=== PATIENT | female | born 1940 | race Caucasian/White ===

== ENCOUNTER 2020-05-10 14:05 | Outpatient (CLI) | payer MEDICARE, OTHER, SELFPAY ==
--- NOTE | 2020-05-17 11:44 | WPDPFTINT ---
PFT Interpretation PFT Interpretation: DOS: 05/10/2020 REQUESTING: Lolita Pretty NP REASON FOR TESTING: asthma PULMONARY FUNCTION TESTS Results are reliable and reproducible. Spirometry: FEV1 103%, FVC 89%, both normal. FEV1% is normal. GMY63-30% is mildly decreased 69%. No change with bronchodilator. Lung volumes: TLC 145% consistent with moderate hyperinflation. RV is 194%, severe air trapping. The slow vital capacity is significantly higher than the forced vital capacity, 113% compared to 89%. This demonstrates dynamic airflow obstruction. Increased airway resistance. Diffusion: DLCO 51% moderately decreased. Flow volume loop: scooping of the expiratory limb IMPRESSION: Normal FEV1, decreased small airways flow consistent with asthma. Moderate hyperinflation and severe air trapping are consistent with an obstructive process. Moderate diffusion impairment. This pattern may be seen in asthma. Typically, asthmatics would be expected to have a good response to bronchodilator. Lack of response to bronchodilator should not preclude use if clinically indicated. Keshia Alonzo MD
--- NOTE | 2020-05-17 11:54 | WPDSIXMINUTE ---
Six Minute Walk Six Minute Walk: DOS: 05/10/2020 REQUESTING: Lolita Pretty NP REASON FOR TESTING: asthma SIX MINUTE WALK This test was conducted per ATS guidelines. Initial saturation 97%. Pulse 76. The patient walked for 6 minutes, and stopped for shortness of breath twice, each time resting 15-20 seconds. Patient continued the walk until completion. She completed 800 feet, 244 meters. Saturation varied between 92% and 96% while walking. Pulse maximum was 103 during recovery. Final saturation was 94%. IMPRESSION: This patient does not require supplemental oxygen with exertion. She rested during the walk for 30-40 seconds, and was able to complete a distance of 800 ft/ 244 meters. Normal walk distances have not been established for this age. This appears to be an adequate distance for her age.
== END 2020-05-10 14:06 | disposition home or self-care (01) ==
PROVIDERS: PCP Family Medicine; Visit Provider Nurse Practitioner
DX: J45.909 Unspecified asthma, uncomplicated (principal)
CPT/HCPCS: 94060; 94726; 94729

== ENCOUNTER → 2022-06-03 10:50 | Outpatient (CLI) | payer MEDICARE, SELFPAY ==
--- NOTE | ~2022-06-03 | MR_ITS ---
EXAMINATION: MR lumbar spine wo con DATE: 06/03/2022 11:27 INDICATION: Lumbar intervertebral disc degeneration presenting with low back pain and right leg pain TECHNIQUE: Magnetic resonance imaging (MRI) of the lumbar spine was performed without intravenous con trast. Sequences included sagittal T2-weighted FSE, sagittal T2-weighted FS FSE, sagittal T1-weighted FSE, and axial T2-weighted FSE. COMPARISON: CT abdomen and pelvis dated 09/17/2016 FINDINGS: 15 degrees lumbar levoscoliosis. 4 mm retrolisthesis L1 on L2, 203 mm retrolisthesis L2 on L3, 2 mm a nterolisthesis L4 on L5 and 2 mm retrolisthesis L5 on S1. Chronic L1 compression fracture with 20% an terior and central vertebral body height loss. Heterogeneous red and yellow marrow signal. No acute f racture or pathologic marrow replacing process. Moderate to severe disc height loss with vacuum pheno layne at L4-L5. There are to severe left side predominant disc height loss at L1-L2. Mild disc height loss at T12-L1, L2-L3, L3-L4 and L4-L5. There are annular fissures from T11-T12 through L5-S1. The co nus medullaris terminates at L1-L2. There is normal signal in the caudal spinal cord. Paravertebral s oft tissues are unremarkable. The following disc levels are specifically discussed: T12-L1: Large diffuse disc bulge. There is mild right and mild to moderate left facet joint osteoarth ritis. There is mild bilateral neural foraminal stenosis. There is mild central canal stenosis. L1-L2: Large diffuse disc bulge. There is mild bilateral facet joint osteoarthritis. There is mild ri ght and moderate left neural foraminal stenosis. There is mild central canal stenosis. L2-L3: Large diffuse disc bulge with large disc extrusion extending into the right neural foramen. Th ere is mild hypertrophy of the ligamentum flavum. There is mild bilateral facet joint osteoarthritis. There is severe right and mild left neural foraminal stenosis. There is moderate central canal steno sis. L3-L4: Moderate diffuse disc bulge. There is prominent hypertrophy of the ligamentum flavum. There i s moderate bilateral facet joint osteoarthritis. There is moderate bilateral, right greater than left neural foraminal stenosis. There is mild central canal stenosis. L4-L5: Moderate diffuse disc bulge with at the moderate-sized left paracentral to foraminal zone disc extrusion extending cephalad from the level of the disc space. There is severe bilateral facet joint osteoarthritis. There is moderate left and severe right neural foraminal stenosis. There is mild brad tral canal stenosis. L5-S1: Disc is mildly bulging. There is moderate right and moderate left facet joint osteoarthritis. There is mild bilateral, left greater than right neural foraminal stenosis. There is minimal central canal stenosis. IMPRESSION: 1. 15 degrees lumbar levoscoliosis with moderate to severe spondylosis. This most notable for disc ex trusions resulting in severe neural foraminal stenosis on the right at L2-L3 and L4-L5. Reviewed, dictated and finalized at location A. IMPRESSION: 1. 15 degrees lumbar levoscoliosis with moderate to severe spondylosis. This mo st notable for disc extrusions resulting in severe neural foraminal stenosis on the right at L2-L3 and L4-L5.
== END ==
PROVIDERS: PCP Family Medicine; Visit Provider Family Medicine
DX: M51.36 Other intervertebral disc degeneration, lumbar region (principal); M47.896 Other spondylosis, lumbar region
CPT/HCPCS: 72148

== ENCOUNTER → 2022-06-25 13:09 | Outpatient (CLI) | payer MEDICARE, SELFPAY ==
--- NOTE | ~2022-06-25 | XR_ITS ---
XR lumbar spine min 4V DATE: 06/25/2022 13:37 INDICATION: Back pain TECHNIQUE: AP, lateral, coned lateral lumbosacral and bilateral oblique views COMPARISON: None FINDINGS: There is diffuse osteopenia. There is mild levoscoliosis of the lumbar spine. There is moderate anterior wedge compression fracture deformity of L1, likely chronic. There is moderately severe degenerative disc disease at L1-2, moderate degenerative disease at L2-3, L3-4 and severe degenerative disc disease and grade 1 anterolisthesis at L4-5. There is prominent deg enerative change at the apophyseal joints particularly at L4-5 and L5-S1. No spondylolysis is noted. The lumbar pedicles are intact. The sacroiliac joints are intact. There is prominent calcification of the abdominal aorta and iliac arteries; no evidence of abdominal aortic aneurysm IMPRESSION: Osteopenia Mild levoscoliosis Chronic moderate anterior wedge compression fracture deformity at L1 Multilevel degenerative disc disease, most severe at L4-5 Degenerative changes apophyseal joints with associated grade 1 anterolisthesis at L4-5 Reviewed, dictated and finalized at location A. ANICAL SYSTEMS DESIGN ENGINEER
--- NOTE | ~2022-06-25 | XR_ITS ---
XR hip RT min 2V DATE: 06/25/2022 13:37 INDICATION: Right hip pain TECHNIQUE: AP and lateral views COMPARISON: None FINDINGS: No fracture or dislocation, avascular necrosis or bone destruction of the right hip. Right hip joint space appears well preserved. IMPRESSION: No significant abnormality of right hip Reviewed, dictated and finalized at location A. ED HEALTH PROFESSIONAL
== END ==
PROVIDERS: PCP Family Medicine; Visit Provider Neurological Surgery
DX: M51.36 Other intervertebral disc degeneration, lumbar region (principal); M85.88 Other specified disorders of bone density and structure, other site
CPT/HCPCS: 72110; 73502

== ENCOUNTER → 2022-07-26 10:46 | Outpatient (CLI) | payer MEDICARE, SELFPAY ==
--- NOTE | ~2022-07-26 | XR_ITS ---
EXAMINATION: XR lumbar spine 2-3V DATE: 07/26/2022 11:03 INDICATION: Low back pain TECHNIQUE: Lateral views of the lumbar spine are obtained in flexion and extension. COMPARISON: 06/25/2022 FINDINGS: There are 5 mm of anterolisthesis of L4 on L5. No laxity is present flexion or extension. V ertebral body alignment is otherwise normal. Again noted is a compression fracture of L1. There is se nilam loss of intervertebral disc space height at L4-5 and mild to moderate loss of disc space height throughout the remainder of the lumbar spine. Calcified atherosclerosis is noted. IMPRESSION: 1. Severe lumbar spondylosis without acute findings or significant interval change. 2. L1 compression fracture change. Reviewed, dictated and finalized at location A. NESS DEVELOPMENT ASSISTANT IMPRESSION: 1. Severe lumbar spondylosis without acute findings or significant interval jv nge. 2. L1 compression fracture change.
== END ==
PROVIDERS: PCP Family Medicine; Visit Provider Neurological Surgery
DX: M47.896 Other spondylosis, lumbar region (principal)
CPT/HCPCS: 72100

== ENCOUNTER → 2022-11-15 08:26 | Outpatient (CLI) | payer MEDICARE, SELFPAY ==
--- NOTE | ~2022-11-15 | XR_ITS ---
EXAMINATION: XR lumbar spine 2-3V DATE: 11/15/2022 09:05 INDICATION: Arthrodesis status assessment TECHNIQUE: Anteroposterior and lateral views of the lumbar spine, and cone-down lateral view of the l umbosacral junction were obtained. COMPARISON: 07/26/2022 FINDINGS: There is a stable L1 compression fracture. The remaining lumbar vertebral body heights are maintained. There are changes of interval posterior fusion and laminectomy from L2 through L5. Fusion hardware appears intact. There are 5 mm of stable anterolisthesis of L4 on L5. No acute fracture is identified. There is calcified atherosclerosis of the aorta. There is severe loss of intervertebral d isc space height at L4-5. Mild to moderate loss of disc space height is seen throughout the remainder of the lumbar spine. IMPRESSION: 1. Changes of interval posterior fusion and laminectomy from L2 through L5 with intact appearing fusi on hardware. 2. Severe lumbar spondylosis. 3. Stable L1 compression fracture. Reviewed, dictated and finalized at location B. IMPRESSION: 1. Changes of interval posterior fusion and laminectomy from L2 through L5 with intact appearing fusion hardware. 2. Severe lumbar spondylosis. 3. Stable L1 compression fracture.
== END ==
PROVIDERS: PCP Family Medicine; Visit Provider Neurological Surgery
DX: M47.896 Other spondylosis, lumbar region (principal); S32.010D Wedge compression fracture of first lumbar vertebra, subsequent encounter for fracture with routine healing; X58.XXXD Exposure to other specified factors, subsequent encounter; Z98.1 Arthrodesis status
CPT/HCPCS: 72100

== ENCOUNTER 2022-12-18 09:15 | Outpatient (RCR) | payer MEDICARE, SELFPAY ==
--- NOTE | 2022-11-20 15:41 | PTOPEVAL1 ---
Assessment and note entered by Sean Newton, PT Evaluation Information Assessment Status Evaluation Diagnosis S/P L2 to L5 fusion Subjective Information Patient and daughter present during evaluation stating the patient overdid it over the weekend going grocery shopping, pulling weeds, vacuuming, and doing laundry. Reports still feels very deconditioned and that she wants to get back to doing everything around her house. No radiating symptoms down the leg. Reported Pain Level Pain Score 3: Self Report Assessment PT Clinical Summary Oumou is an 82 year old female coming into the clinic with a diagnosis of L2-L5 spinal fusion. She reports issues performing most electrolysist or just walking on her driveway. Spent a long time of the evaluation talking to patient and daughter about specific household tasks and which ones to start with and what ones to ease into. Patient's prognosis will be slowed secondary to patient's reported cardio-respiratory deficits. Physical therapy will mainly work on endurance, balance, and education with strengthening to help improve functional mobility and ADL's. Plan of Care Interventions Electrical Stimulation,Gait Training,Hot Pack/Cold Pack,Manual Therapy,Neuro Re-education,Patient/ Caregiver Education,Therapeutic Activities, Therapeutic Exercise,Ultrasound Other Interventions cupping, taping, IASTM PT Services Indicated Yes Treatment Frequency and 2x/wk for 4 weeks Duration These treatments will address the objective and functional deficits as defined above. The patient will be advanced safely and appropriately in order for the patient to progress towards his/her prior level of function. Additional exercises will be introduced and as well as a comprehensive home exercise program upon discharge, if needed, ?to ensure carryover of functional gains achieved in the clinic. This treatment plan has been reviewed and agreement upon by the patient.
--- NOTE | 2022-12-18 09:50 | PTOPDC ---
Assessment and note entered by Sean Newton, PT Evaluation Information Assessment Status Discharge Diagnosis S/P L2-L5 fusion Subjective Information Patient reports the back still hurts, but main issue is her breathing unable to do much secondary to her breathing including not being able to go to congregation or shopping. Patient has an appointment with her fleet maintenance foreman tomorrow to do tests along with going to her primary for blood draws to check for anemia. Reported Pain Level Pain Score 5: Self Report Assessment PT Clinical Summary Oumou is an 82 year old female coming into the clinic with a diagnosis of L2/L5 fusion. Patient was evaluated on 11/20/22 and attended 9 sessions. She was able to meet 2 of her functional goals, but did not meet pain goals. Main concern of therapist is that her shortness of breath has been going on for over 2 weeks now and is not improving. It is limiting participation with physical therapy. Physical therapist is recommending further evaluation by fleet maintenance foreman and fine unhairer which she has both already scheduled and possible cardiopulmonary rehab to work on the endurance. IF still having issues after that will re-evaluate the patient with new order. Plan of Care PT Services Indicated No
== END 2022-12-18 10:42 | disposition home or self-care (01) ==
LOC: ANHPT 09:15
PROVIDERS: PCP Family Medicine; Visit Provider Neurological Surgery
DX: Z98.1 Arthrodesis status (principal)
CPT/HCPCS: 97110; 97112; 97161; 97530

== ENCOUNTER 2022-12-19 10:29 | Outpatient (CLI) | payer MEDICARE, SELFPAY ==
--- NOTE | ~2022-12-19 | CT_ITS ---
CT Scan of the Chest without Contrast: Clinical Indication: Respiratory crackles Technique: Contiguous sections were acquired throughout the chest without intravenous contrast. Dose reduction technique was used on this scan by utilizing automated exposure control and iterative recon struction technique. The dose-length product (DLP) was 247.47 mGy-cm. Findings: There is no evidence of any significant mediastinal, hilar or axillary lymphadenopathy. Atherosclerot ic calcifications of the aorta are noted. There is no evidence of pleural or pericardial effusion. There is minimal bibasilar subpleural reticulation versus minimal hypoventilatory/atelectatic change. Images through the upper abdomen reveal no abnormalities. Impression: Minimal bibasilar subpleural reticulation versus minimal hypoventilatory/atelectatic change. Reviewed, dictated and finalized at [facility]. Impression: Minimal bibasilar subpleural reticulation versus minimal hypoventilatory/atelec tatic change.
[2022-12-19 10:30] VITALS: PULSE 78; O2SAT 98
[2022-12-19 10:35] VITALS: PULSE 93; O2SAT 99
[2022-12-19 10:45] VITALS: PULSE 79; O2SAT 98
--- NOTE | 2022-12-19 11:30 | HOMEO2EVAL ---
Evaluation was performed at [facility] Home Oxygen Evaluation RC: Home Oxygen (O2) Evaluation Start: 12/19/22 11:27 Freq: Status: Active Protocol: RPE Activity Type Activity Date Activity User E-sign Co-sign Detail Recorded Client Recorded Date Recorded By Document 12/19/22 10:30 DJO [email or web address] 12/19/22 11:29 DJO Document 12/19/22 10:35 [email or web address] [email or web address] 12/19/22 11:29 DJO Document 12/19/22 10:45 [email or web address] [email or web address] 12/19/22 11:29 DJO 12/19/22 12/19/22 12/19/22 10:30 10:35 10:45 Home O2 Evaluation [Oxygen] -Test Phase Resting Exercise Resting -Oxygen Delivery Room Air Room Air [Pulse Oximetry] -Pulse Oximetry (90-100 %) 98 99 98 [Pulse Rate] -Pulse Rate (60-100 beats/min) 78 93 79 [Evaluation] -Activity Tolerance Fair [Comments] -Home Oxygen Evaluation Comments PT ORDERED FOR A 6 MINUTE WALK . PT STATES SHE IS UNABLE TO WALK FOR 6 MINUTES DUE TO BACK PAIN. HOME O2 EVAL DONE INSTEAD. [Charges] -Treatment Charges O2 Evaluation - Outpatient
--- NOTE | 2022-12-19 16:29 | WPDPFTINT ---
PFT Procedure Performed PFT Procedure Performed Spirometry with Pre/Post Bronchodilator Plethysmography (Lung Vol) Diffusing Cap (DLCO) Flow Vol Loop PFT Interpretation This is a pulmonary function test with pre and post-bronchodilator spirometry, plethysmography and diffusing capacity. The test was performed and results interpreted in accordance with the 2019 and 2005 ATS/ERS Task Force guidelines respectively using the Global Lung Function Initiative-2012 reference equations. Patient demonstrated good effort and cooperation. Reproducibility criteria were met. The quality of the pre bronchodilator spirometry maneuver was Grade A and post bronchodilator spirometry maneuver was Grade A. Findings: Spirometry: The contour the inspiratory and expiratory flow tracing are normal. The pre bronchodilator FVC is 2.13 L, 100% predicted. The pre bronchodilator FEV1 is 1.51 L, 93% predicted. The pre bronchodilator FEV1: FVC ratio is 71%. The post bronchodilator FVC is 1.82 L, representing a 14% decrease. The post bronchodilator FEV1 is 1.31 L, representing a 13% decrease. The post bronchodilator FEV1: FVC ratio 72%. Plethysmography: The total lung capacity is 5.42 L, 122% predicted. The functional residual capacity is 3.92 L, 154% predicted. The residual volume is 3.27 L, 147% predicted. Diffusing capacity: The diffusing capacity unadjusted for hemoglobin and carboxyhemoglobin is 12.6, 72% predicted. The diffusing capacity adjusted for alveolar volume is 4.04, 94% predicted. Impression: The spirometry is normal without evidence of an obstructive abnormality. There is no significant improvement after inhaling a single dose of albuterol. The total lung capacity is normal with an increased functional residual capacity and residual volume without and obstructive ventilatory abnormality. This is a abnormal but nonspecific lung volume pattern. The diffusing capacity is normal. There are no prior studies for comparison.
== END 2022-12-19 10:30 | disposition home or self-care (01) ==
LOC: ANHPFT 10:30
PROVIDERS: PCP Family Medicine; Visit Provider Nurse Practitioner
DX: J45.909 Unspecified asthma, uncomplicated (principal); R91.8 Other nonspecific abnormal finding of lung field
CPT/HCPCS: 71250; 94060; 94618; 94726; 94729

== ENCOUNTER → 2023-01-08 09:37 | Outpatient (CLI) | payer MEDICARE, SELFPAY ==
--- NOTE | ~2023-01-08 | XR_ITS ---
Lumbosacral Spine: AP and lateral views Clinical History: Arthrodesis COMPARISON: 11/15/2022 Findings: Posterior fusion hardware from L2 through L5 is again present, with bilateral rods and ballard spedicular screws present. Advanced degenerative disc narrowing at L4-L5 is unchanged. Moderate degen erative disc narrowing at L1-L2 is present. Stable chronic compression deformity of L1. Stable grade 1 anterolisthesis of L4 over L5. The sacroiliac joints are normally outlined. Impression: No significant interval change. Stable posterior fusion from L2 through L5. Stable chronic compression of L1. Stable grade I anterolisthesis of L4 over L5. Reviewed, dictated and finalized at location . Impression: No significant interval change. Stable posterior fusion from L2 through L5. Stable chronic compression of L1. Stable grade I anterolisthesis of L4 over L5.
== END ==
PROVIDERS: PCP Family Medicine; Visit Provider Neurological Surgery
DX: Z98.1 Arthrodesis status (principal)
CPT/HCPCS: 72100

== ENCOUNTER → 2023-04-09 09:13 | Outpatient (CLI) | payer MEDICARE, SELFPAY ==
--- NOTE | ~2023-04-09 | XR_ITS ---
XR lumbar spine 2-3V DATE: 04/09/2023 09:43 INDICATION: Arthrodesis status TECHNIQUE: AP, lateral, coned lateral lumbosacral views COMPARISON: 01/08/2023 lumbar spine FINDINGS: Status post lumbar laminectomy and posterior spinal fusion at L2-5 by means of pedicle scre ws and rods. There is mild lumbar levoscoliosis. There is chronic moderate anterior wedge compression fracture at L1, stable since 01/08/2023. There is multi-level degenerative disc disease throughout the lumbar spine, most severe at L1-2, L4-5 and L5-S1. Stable grade 1 anterolisthesis at L4-5. There is extensive abdominal aortic and bilateral iliac arterial calcification. IMPRESSION: Status post posterior L2-L5 surgical fusion Chronic L1 compression fracture Multi-level degenerative disc disease Stable grade 1 anterolisthesis at L4-5. Little change since 01/08/2023 Reviewed, dictated and finalized at location B.
== END ==
PROVIDERS: PCP Neurological Surgery; Visit Provider Neurological Surgery
DX: Z98.1 Arthrodesis status (principal); M51.36 Other intervertebral disc degeneration, lumbar region; S32.010A Wedge compression fracture of first lumbar vertebra, initial encounter for closed fracture; X58.XXXA Exposure to other specified factors, initial encounter
CPT/HCPCS: 72100

== ENCOUNTER 2023-05-29 09:00 | Outpatient (RCR) | payer MEDICARE, SELFPAY ==
--- NOTE | 2023-04-28 10:58 | OPREHPOC ---
Outpatient Therapy Plan of Care This is a Multidisciplinary Plan of Care that may contain components documented by all disciplines (PT, OT, and ST.) PT Problem 1 PT Problem #1 Knowledge Deficit PT Goal 1 Goal [place] with HEP Target Visit 4 PT Problem 2 PT Problem #2 Pain PT Goal 1 Goal Patient will report no R hip pain with ambulation greater than 200 feet Target Visit 8 PT Problem 3 PT Problem #3 Impaired Range of Motion PT Goal 1 Goal Patient will demonstrate 45 degrees of hip abduction in nile hips to reduce impingement with squatting activity Target Visit 8 PT Goal 2 Goal Patient will improve nile HS 90/90 mobility to -25 degrees to reduce pelvic pull with bending activity PT Problem 4 PT Problem #4 Impaired Functional Mobil PT Goal 1 Goal Demonstrate squat lift of 5# from floor with proper hip mechanics and reduce spinal flexion
--- NOTE | 2023-04-28 10:58 | PTOPEVAL1 ---
Assessment and note entered by Oli Gardner, PT Evaluation Information Assessment Status Evaluation Diagnosis L2-L5 Spinal fusion, Back pain Onset October 01, 2022 Subjective Information Reports that she is mostly having trouble in the low back. She had an injection on 04/24/23. Since injection she is having a little bit of pain but it is better overall. Majority of pain is in back but she has had intermittent in R leg. She is unable to walk long distances due to COPD. She wants to be able to walk around the grocery store more and be able to get around outside. She has 2 small dogs and needs to be able to care for them. Reported Pain Level Pain Score 5: Self Report Assessment PT Clinical Summary Patient presenting with objective deficits in hip strength and ROM which is likely compounding stress in lumbar musculature. She will benefit from skilled therapy to address these deficits to improve body mechanics and reduce pain with ADLs and gait moving forward. Plan of Care PT Services Indicated Yes Treatment Frequency and 2x/week for 8 weeks Duration These treatments will address the objective and functional deficits as defined above. The patient will be advanced safely and appropriately in order for the patient to progress towards his/her prior level of function. Additional exercises will be introduced and as well as a comprehensive home exercise program upon discharge, if needed, ?to ensure carryover of functional gains achieved in the clinic. This treatment plan has been reviewed and agreement upon by the patient.
--- NOTE | 2023-05-29 09:47 | PTOPDC ---
Assessment and note entered by Oli Gardner, PT Discharge Information Assessment Status Discharge Diagnosis L2-L5 Spinal fusion, Back pain Onset October 01, 2022 Subjective Information Reports that overall she feels she is doing really well. States that she had a follow up with her pulmonary physician and everything checked out well. Feels she is functionally doing everything that she needs to. She is still struggling with kneeling and squatting due to her knee. Reported Pain Level Pain Score 1: Self Report Pain Score 1: Self Report Assessment PT Clinical Summary Patient met majority of goals for therapy at this time. Continues to show reflective weakness in R hip indicated by measures and gait pattern. No concerns for discharge at this time and HEP was updated to include standing exercise. Plan of Care PT Services Indicated No
== END 2023-05-29 13:06 | disposition home or self-care (01) ==
LOC: ANHPT 09:00
PROVIDERS: PCP Family Medicine; Visit Provider Neurological Surgery
DX: M54.50 Low back pain, unspecified (principal); Z98.1 Arthrodesis status
CPT/HCPCS: 97110; 97140; 97161; 97530

== ENCOUNTER 2023-06-07 09:08 | Inpatient (IN) | payer MEDICARE, SELFPAY ==
[2023-06-07] VITALS (43 sets, daily range): BP systolic 96–157; BP diastolic 52–83; PULSE 73–117; RESP 12–30; TEMP 36.3–36.9; O2SAT 95–100; BMI 36.7
--- NOTE | ~2023-06-07 | XR_ITS ---
XR chest 1V portable DATE: 06/07/2023 09:43 INDICATION: Dyspnea TECHNIQUE: Portable AP chest on 05/30/2023 at 0941 hours COMPARISON: 12/19/2022 CT chest FINDINGS: Heart size is within normal range. Is aortic calcification, ectasia and tortuosity. No denae r or mediastinal enlargement is noted. Mild infiltrate or atelectasis at the lung bases. The lungs otherwise appear clear. No pleural effusi on or pulmonary mass congestion or pneumothorax. Osteopenia. IMPRESSION: Mild infiltrate or atelectasis at the lung bases Reviewed, dictated and finalized at location A.
--- NOTE | ~2023-06-07 | CT_ITS ---
EXAMINATION: CTA abdomen pelvis DATE: 06/07/2023 10:17 INDICATION: Hematochezia, diarrhea, abdominal pain TECHNIQUE: Computed tomography (CT) of the abdomen and pelvis was performed with 100 CC Omnipaque 350 intravenous contrast. Automated exposure control and iterative reconstruction technique were employe d. Exam dose: 1013.49 mGy-cm total exam DLP. COMPARISON: September 17, 2016 abdomen September 17, 2016 CT abdomen pelvis FINDINGS: Mild atelectasis or interstitial fibrotic changes at the lung bases. Cardiomegaly. No pericardial or pleural effusion. Descending thoracic aortic aneurysm, measuring up to approximately 3.3 cm diameter. The liver, gallbladder, bile ducts, spleen, pancreas and pancreatic duct appear normal. Normal morphology of the adrenal glands. 1 cm left renal cyst. No urinary tract calculus or hydroureteronephrosis. There is extensive abdominal aortic atherosclerotic calcification but no abdominal aortic aneurysm. N o intraperitoneal or retroperitoneal or pelvic mass lesion or adenopathy or ascites. Status post hysterectomy. The urinary bladder appears unremarkable. No evidence of appendicitis. Mild colonic diverticulosis. There is a long segment of thickening of the wall of the distal transverse colon, splenic flexure and descending colon, with associated pericolic fat stranding and thickening of the adjacent anterior pa rarenal and lateroconal fascia and mild fluid accumulation in the left paracolic gutter. Differential diagnosis includes colitis which may be infectious, inflammatory or ischemic, versus diverticulitis or less likely, neoplasm. Small fat-containing umbilical hernia. Status post posterior surgical fusion at L2-L5. Chronic L1 fracture deformity, not significant change since September 17, 2016. Multilevel degenerative disc disease, most severe at L4-5. Grade 1 anterolisthesis of L3-4 and L4-5. IMPRESSION: Thickening of the wall of the distal transverse colon, splenic flexure of the colon and particularly descending colon, with adjacent fat stranding and thickening of the adjacent anterior pa rarenal and lateroconal fascia and left pericolic fluid, particularly along the descending colon. Con molder infectious, inflammatory or ischemic colitis versus diverticulitis, less likely colon neoplasm Mild colonic diverticulosis No evidence of appendicitis Status post hysterectomy Descending thoracic aortic aneurysm Cardiomegaly Reviewed, dictated and finalized at Location [facility]. Reviewed, dictated and finalized at location A. IMPRESSION: Thickening of the wall of the distal transverse colon, splenic fle xure of the colon and particularly descending colon, with adjacent fat strandin g and thickening of the adjacent anterior pararenal and lateroconal fascia and left pericolic fluid, particularly along the descending colon. Consider infecti ous, inflammatory or ischemic colitis versus diverticulitis, less likely colon neoplasm Mild colonic diverticulosis No evidence of appendicitis Status post hysterectomy Descending thoracic aortic aneurysm Cardiomegaly
--- NOTE | 2023-06-07 09:31 | ECG_ITS ---
Measurements Intervals [place] Rate: 77 P: ID: 0 QRS: -1 QRSD: 84 T: 39 QT: 382 QTc: 435 Interpretive Statements SINUS RHYTHM WITH PREMATURE ATRIAL CONTRACTIONS BORDERLINE ECG NO PREVIOUS ECG AVAILABLE FOR COMPARISON Electronically Signed On 06-07-2023 14:42:11 CDT by Zana Mcmahon M.D.
--- NOTE | 2023-06-07 09:34 | ED.GENADULT ---
HPI - General Adult General Chief complaint: GI Bleed <Courtney Ocasio PA-C - Last Filed: 06/07/23 15:24> Stated complaint: GI bleed <Courtney Ocasio PA-C - Last Filed: 06/07/23 15:24> Time Seen by Provider: 06/07/23 09:18 <Courtney Ocasio PA-C - Last Filed: 06/07/23 15:24> History of Present Illness HPI narrative: 82-year-old female with a history of asthma, diabetes, hypertension presents with her daughter for evaluation of diarrhea and hematochezia since yesterday. Patient lives at home alone and provides the following history. States she has had multiple episodes of diarrhea starting yesterday and towards evening began developing bloody diarrhea. She states she would estimate the amount of blood greater than a quarter of a cup every episode of diarrhea. She believes she had approximately 9 episodes of bloody diarrhea since the onset last night. She is also reporting generalized abdominal cramping in her lower abdomen that wraps around to her back. She states yesterday she had an episode of nausea and diaphoresis, and dizziness upon standing. She reports shortness of breath that is unchanged from her baseline which she attributes to her asthma. She denies chest pain, vomiting, fever, dysuria or hematuria. Her sister has a history of colon cancer. Her last colonoscopy was many years ago which showed polyps. Denies recent surgeries or hospitalizations, antibiotic use, travel. She has never required a blood transfusion. No history of GI bleeds. <Courtney Ocasio PA-C - Last Filed: 06/07/23 15:24> Related Data Home medications: Home Medications Medication Instructions Recorded Confirmed albuterol sulfate 90 mcg/actuation 1 inh inhalation Q4H 06/19/22 07/26/22 aerosol inhaler alprazolam 1 mg tablet (Xanax) 1 mg PO HS 06/19/22 06/07/23 atorvastatin 20 mg tablet 20 mg PO DAILY 06/19/22 06/07/23 dapagliflozin propanediol 10 mg 10 mg PO DAILY 06/19/22 06/07/23 tablet (Farxiga) diclofenac sodium 75 mg 75 mg PO BID 06/19/22 06/07/23 tablet,delayed release duloxetine 30 mg capsule,delayed 30 mg PO DAILY 06/19/22 06/07/23 release duloxetine 60 mg capsule,delayed 60 mg PO DAILY 06/19/22 06/07/23 release fluticasone furoate 100 1 inh inhalation DAILY 06/19/22 06/07/23 mcg-vilanterol 25 mcg/dose inhalation powder (Breo Ellipta) furosemide 20 mg tablet 20 mg PO QAM 06/19/22 06/07/23 levothyroxine 75 mcg capsule 100 mcg PO DAILY 06/19/22 06/07/23 loratadine 10 mg tablet 10 mg PO DAILY 06/19/22 06/07/23 metformin 500 mg tablet 500 mg PO BID 06/19/22 06/07/23 metoprolol succinate 25 mg 12.5 mg PO DAILY 06/19/22 06/07/23 tablet,extended release 24 hr quinapril 5 mg tablet 2.5 mg PO DAILY 06/19/22 07/26/22 sildenafil (pulm.hypertension) 20 20 mg PO TID 06/19/22 06/07/23 mg tablet esomeprazole magnesium 20 mg 20 mg PO DAILY 07/09/22 06/07/23 capsule,delayed release (Nexium) flaxseed oil 5 ml miscellaneous BID 07/09/22 06/07/23 mecobalamin (vitamin B12) 10,000 mcg IM MONTHLY 07/09/22 07/26/22 mcg solution for injection montelukast 10 mg tablet 10 mg PO HS 07/09/22 06/07/23 pregabalin 100 mg capsule (Lyrica) 100 mg PO BID 07/09/22 07/26/22 vitamins A,C,V-qucw-unqiai 4,296 1 cap PO QAM AND QPM 07/09/22 07/26/22 mcg-226 mg-90 mg capsule (PreserVision AREDS) <Courtney Ocasio PA-C - Last Filed: 06/07/23 15:24> Allergies/adverse reactions: Allergies Allergy/AdvReac Type Severity Reaction Status Date / Time venom-wasp Allergy Severe Anaphylactic Verified 07/26/22 10:21 Shock <Courtney Ocasio PA-C - Last Filed: 06/07/23 15:24> Review of Systems Review of Systems: CONSTITUTIONAL: Denies fever, chills EYES: Denies visual changes, redness, or discharge. ENT: Denies rhinorrhea, congestion, sore throat, or otalgia. CARDIOVASCULAR: Denies chest pain, palpitations, or edema. RESPIRATORY: See HPI GASTROINTESTINAL: See HPI GENITOURINARY: Denies dysuria or
[2023-06-07 09:43] LABS: Basophils Percent Auto 0.2 % (0.2-1.2); Eosinophils Absolute Auto 0.2 K/mm3 (0-0.3); Hematocrit 35.8 % (37.0-47.0); Hemoglobin 10.4 g/dL (12.0-15.0); Immature Granulocyte Absolute 0.03 K/mm3 (0.00-0.031); Immature Granulocyte Percent A 0.3 % (0-0.5); Lymphocytes Absolute Auto 1.69 K/mm3 (0.9-3.2); Mean Corpuscular HGB Conc 29.1 g/dl (32-36); Mean Corpuscular Hemoglobin 26.5 pg (26-34); Mean Corpuscular Volume 91.1 fl (80-100); Mean Platelet Volume 9.6 fl (7.4-10.4); Monocytes Absolute Auto 0.7 K/mm3 (0.1-0.6); Monocytes Percent Auto 7.4 % (2.6-8.5); Neutrophils Absolute Auto 6.3 K/mm3 (1.3-6.7); Neutrophils Percent Auto 71.1 % (45.5-73.1); Platelet Count Result 209 k/mm3 (150-375); Red Blood Count 3.93 M/mm3 (4.2-5.4); Red Cell Distribution Width 17.5 % (11.5-14.5); White Blood Count 8.9 K/mm3 (4.5-10.0)
[2023-06-07 09:54] LABS: Alanine Aminotransferase 16 U/L (6-35); Albumin Level 4.1 g/dL (3.5-5.1); Alkaline Phosphatase 76 U/L (38-126); Anion Gap 8 mmol/L (8-16); Aspartate Amino Transferase 21 U/L (14-36); Bilirubin,Total 0.8 mg/dL (0.2-1.3); Blood Urea Nitrogen 15 mg/dL (7-17); Calcium 9.2 mg/dL (8.4-10.2); Carbon Dioxide 25 mmol/L (22-30); Chloride 103 mmol/L (98-107); Estimated CRCL calculation 37 ml/min; Estimated Glomerular Filt Rate 53; Glucose 166 mg/dL (65-110); Lipase 69 U/L (23-300); Magnesium 1.5 mg/dL (1.6-2.3); Potassium 4.3 mmol/L (3.4-5.0); Sodium 136 mmol/L (137-145)
[2023-06-07 09:58] LABS: Prothrombin Time 13.4 Seconds (11.1-14.7)
[2023-06-07 09:59] LABS: Partial Thromboplastin Time 25.4 SECONDS (22.3-36.8)
[2023-06-07 10:06] LABS: Platelet Estimate Adequate (Adequate); Troponin I < 0.012 ng/mL (0.000-0.034)
[2023-06-07 10:07] LABS: Anisocytosis 1+ (NORMAL); Ovalocytes 1+ (NORMAL); Poikilocytosis 1+ (NORMAL); Schistocytes None Seen (NORMAL)
[2023-06-07] MEDS: SODIUM CHLORIDE 0.9% IV 1,000 ML 999 ML IV CONT ×2 (10:24→12:14)
[2023-06-07] MEDS: PANTOPRAZOLE SODIUM IV 40 MG VIAL 80 MG IV PUSH (10:24)
[2023-06-07 10:56] LABS: Magnesium 1.4 mg/dL (1.6-2.3)
[2023-06-07] MEDS: PANTOPRAZOLE SODIUM IV 80 MG in SODIUM CHLORIDE 0.9% IV 500 ML 50 MG IV CONT (11:10)
[2023-06-07 11:26] LABS: Lactic Acid Reflex 1.5 mmol/L (0.7-2.0)
[2023-06-07] MEDS: MAGNESIUM SULF 1 GM/D5W 100 ML 1 GM/100 ML BAG IVPB (11:35)
[2023-06-07 12:10] LABS: Appearance Urine Clear (Clear); Bilirubin Urine Negative (Negative); Blood Urine Negative (Negative); Color Urine Yellow (Yellow); Glucose Urine UA 3+ mg/dL (Negative); Ketones Urine Negative (Negative); Leukocyte Esterase Ur Negative LEU/UL (Negative); Nitrate Urine Negative (Negative); Protein Urine Negative (Negative); Urobilinogen Urine 0.2 mg/dL (<2.0); pH Urine 6.5 (5.0-9.0)
[2023-06-07 12:12] LABS: Add Urine Microscopic? NO
[2023-06-07] MEDS: PIPERACILLN/TAZ 3.375GM/NS50ML 3.375 GM/50 ML BAG IVPB (12:14)
--- NOTE | 2023-06-07 13:06 | PM.IMHP ---
H&P: HPI History of Present Illness Date/Time: 06/07/23 13:05 Chief Complaint: Blood in stool. Narrative: This is a very pleasant 82-year-old female with hypertension, hyperlipidemia, type 2 diabetes mellitus, obstructive sleep apnea on CPAP, and asthma who presented to the emergency department via private vehicle for evaluation of blood in her stool. The patient provides the following history. Yesterday she developed diffuse cramping pain in the lower abdomen followed by of multiple bouts of watery diarrhea. Towards the evening she started to notice bright red blood in her stool and she estimates that she had upwards of 9 to 10 bloody stools since last night. She also endorses nausea, sweats, weakness, dizziness upon standing. She has never had similar symptoms. She denies sick contacts, recent antibiotic use, and recent travel. She has not had a fever to her knowledge. No vomiting. She has a remote history of colon polyps and has had issues with hemorrhoids. No known history of diverticulosis. In the ED: Blood pressure was stable on arrival but she did have an isolated reading of 96/67. She has been in a sinus rhythm. Labs were significant for hemoglobin and hematocrit of 10.4 and 35.8% respectively, magnesium 1.4, lactic acid 1.5. CTA of the abdomen and pelvis showed thickening of the wall of the distal transverse colon, splenic flexure of the colon, and descending colon with adjacent fat stranding compatible with colitis. Mild colonic diverticulosis was also noted. She was given a g magnesium sulfate and was started on Zosyn and she is being admitted in this setting for further treatment and evaluation. Review of Systems Review of Systems: Twelve systems were reviewed and are negative except for as per HPI. [facility] Past Medical History Medical History (Updated 06/07/23 @ 20:28 by Silvia Chery PA-C) Aneurysm of descending thoracic aorta Measuring 3.3 cm as of 06/07/2023. Arthritis Asthma Hypertension Hypothyroidism Migraine Obstructive sleep apnea on CPAP Osteoporosis Type 2 diabetes mellitus Surgical History Surgical History History of cardiac catheterization (12/2019) Patent coronary arteries with normal LV function. History of left knee replacement History of lumbar spinal fusion (09/2022) Per Dr. Owens. History of partial hysterectomy History of right knee joint replacement Family History Family History Father Alcoholism Heart disease Asthma Emphysema lung Sibling Diabetes mellitus Alcoholism Heart disease Cancer Hypertension Cerebrovascular accident Emphysema lung Migraines Son Cancer Hypertension Kidney disease Other Cancer Mother Heart disease Emphysema lung Other Osteoporosis Social History Social History (Updated 06/07/23 @ 20:25 by Silvia Chery PA-C) Social History: Surrogate medical decision maker: Diane Gerard, daughter. Code status: Full code. Smoking status: Never smoker Second hand tobacco smoke exposure: Yes Alcohol intake: former Substance use: never Substance use type: does not use Lack of Transportation: No Lack of Food: Never True Current Housing: I Have Housing Concerned About Future Housing: No Difficulty Paying Gas/Electric Bills: No Difficulty Paying for Meds: No Currently Unemployed: No Education: High School Diploma/GED Difficulty w/ Childcare or Family Care: No Living arrangements: alone Occupation/Education: retired Spiritual care concerns: No Meds Home Medications and Allergies Home Medications Medication Instructions Recorded Confirmed Type alprazolam 1 mg tablet (Xanax) 1 mg PO HS 06/19/22 06/07/23 History atorvastatin 20 mg tablet 20 mg PO DAILY 06/19/22 06/07/23 History dapagliflozin propanediol 10 mg 10 mg PO DAILY 06/19/22 06/07/23 History tablet (Farxiga)
[2023-06-07 13:42] LABS: Hematocrit 33.4 % (37.0-47.0); Hemoglobin 9.2 g/dL (12.0-15.0)
--- NOTE | 2023-06-07 16:40 | ADMGEN ---
This patient, Oumou Villagran, was admitted to 2 Medical Room 259-01. Patient/family oriented to hospital policies and general routines including ID bracelet, bed and alarms, visiting hours, pain management, procedures, bathroom and other care routines, personal items, smoking policy, room service/diet, and visiting hours. Information on how to activate the Rapid Response Team has been discussed. Patient/Family are encouraged to report perceived risks to care and to ask questions if they do not understand what they are told or what they should do.
[2023-06-07] MEDS: PIPERACILLIN/TAZ 2.25G/NS 50ML 2.25 GM/50 ML BAG IVPB ×2 (18:11→23:42)
[2023-06-07] MEDS: SODIUM CHLORIDE 0.9% IV 1,000 ML 125 ML IV CONT (18:12)
[2023-06-07] MEDS: MONTELUKAST SODIUM 10 MG TABLET PO (21:39)
[2023-06-07] MEDS: ALPRAZolam (*CRX) 0.5 MG TABLET 1 MG PO (21:39)
[2023-06-07 22:19] LABS: Glucose Point of Care 162 mg/dl (65-105)
[2023-06-07] MEDS: METOPROLOL SUCCINATE EXT REL 12.5 MG TABCR PO (23:43)
[2023-06-07] MEDS: ATORVASTATIN 20 MG TABLET PO (23:43)
[2023-06-08] VITALS (16 sets, daily range): BP systolic 114–149; BP diastolic 49–76; PULSE 78–106; RESP 16–18; TEMP 36.5–36.9; O2SAT 95–99
[2023-06-08 00:51] LABS: Hematocrit 31.2 % (37.0-47.0); Hemoglobin 8.9 g/dL (12.0-15.0)
--- NOTE | 2023-06-08 02:44 | ECG_ITS ---
Measurements Intervals [place] Rate: 85 P: 58 SC: 178 QRS: 0 QRSD: 85 T: 53 QT: 383 QTc: 458 Interpretive Statements SINUS RHYTHM WITH OCCASIONAL SUPRAVENTRICULAR PREMATURE COMPLEXES BORDERLINE ECG COMPARED TO ECG 06/07/2023 10:25:51 NO SIGNIFICANT CHANGES Electronically Signed On 06-08-2023 13:42:56 CDT by Zana Mcmahon M.D.
[2023-06-08] MEDS: SODIUM CHLORIDE 0.9% IV 1,000 ML 125 ML IV CONT (05:36)
[2023-06-08] MEDS: LEVOTHYROXINE SODIUM 100 MCG TABLET PO (05:37)
[2023-06-08] MEDS: PIPERACILLIN/TAZ 2.25G/NS 50ML 2.25 GM/50 ML BAG IVPB ×3 (05:37→17:30)
[2023-06-08 06:14] LABS: Hematocrit 30.3 % (37.0-47.0); Hemoglobin 8.4 g/dL (12.0-15.0); Mean Corpuscular HGB Conc 27.7 g/dl (32-36); Mean Corpuscular Hemoglobin 26.5 pg (26-34); Mean Corpuscular Volume 95.6 fl (80-100); Mean Platelet Volume 10.5 fl (7.4-10.4); Platelet Count Result 170 k/mm3 (150-375); Red Blood Count 3.17 M/mm3 (4.2-5.4); Red Cell Distribution Width 17.7 % (11.5-14.5); White Blood Count 7.1 K/mm3 (4.5-10.0)
[2023-06-08 06:36] LABS: Anion Gap 8 mmol/L (8-16); Blood Urea Nitrogen 9 mg/dL (7-17); Calcium 8.3 mg/dL (8.4-10.2); Carbon Dioxide 23 mmol/L (22-30); Chloride 108 mmol/L (98-107); Estimated CRCL calculation 37 ml/min; Estimated Glomerular Filt Rate 53; Glucose 122 mg/dL (65-110); Potassium 3.9 mmol/L (3.4-5.0); Sodium 139 mmol/L (137-145)
[2023-06-08 08:09] LABS: Glucose Point of Care 151 mg/dl (65-105)
[2023-06-08] MEDS: FLUTICASONE/SALMETEROL 115-21 MCG INHALER 1 PUFF 2 PUFF INHALATION ×2 (08:30→20:58)
--- NOTE | 2023-06-08 09:27 | WPDGICN ---
Assessment and Plan Assessment and plan (1) Colitis: Code(s): K52.9 - Noninfective gastroenteritis and colitis, unspecified Status: Acute Assessment and Plan: probably ischemic but she is more comfortable now, could be also infectious stool samples, liquid diet and iv antibiotic colonoscopy probably in 4-6 weks after acute episode resolved unless more bleeding (2) GI bleed: Qualifiers: GI bleed type/associated pathology: unspecified gastrointestinal hemorrhage type Qualified Code(s): K92.2 - Gastrointestinal hemorrhage, unspecified Code(s): K92.2 - Gastrointestinal hemorrhage, unspecified Status: Acute Assessment and Plan: from colitis (3) Type 2 diabetes mellitus: Code(s): E11.9 - Type 2 diabetes mellitus without complications Status: Acute (4) Hypertension: Code(s): I10 - Essential (primary) hypertension Status: Acute (5) Acute on chronic anemia: Code(s): D64.9 - Anemia, unspecified Status: Acute GI Consult Note Consult date/time: 06/08/23 09:27 Reason for consult: colitis, blood in stools HPI: Oumou Villagran is a 82 year old female with hypertension, hyperlipidemia, type 2 diabetes mellitus, obstructive sleep apnea on CPAP, and asthma who presented to the emergency department via private vehicle for evaluation of blood in her stool.? Started with lower abdominal cramping then followed by maroon stool with diarrhea, no fever or chills, denies previous episode, no sick contact. Last colonoscopy about 15 years ago. Labs were significant for hemoglobin and hematocrit of 10.4 and 35.8% respectively, magnesium 1.4, lactic acid 1.5. CTA of the abdomen and pelvis showed thickening of the wall of the distal transverse colon, splenic flexure of the colon, and descending colon with adjacent fat stranding compatible with colitis.?She is feeling better now and comfortable, family at beside. Review of Systems Review of Systems: CONSTITUTIONAL: Denies fever, chills EYES: Denies visual changes, redness, or discharge. ENT: Denies rhinorrhea, congestion, sore throat, or otalgia. CARDIOVASCULAR: Denies chest pain, palpitations, or edema. RESPIRATORY: See HPI GASTROINTESTINAL: See HPI GENITOURINARY: Denies dysuria or hematuria. SKIN: Denies rash or itching. MUSCULOSKELETAL: Denies back pain, joint pain, or myalgia. NEUROLOGIC: See HPI PSYCHIATRIC: Denies anxiety or depression. [facility] Past Medical History Medical History (Updated 06/08/23 @ 09:29 by Leonides Topete MD) Acute on chronic anemia Aneurysm of descending thoracic aorta Measuring 3.3 cm as of 06/07/2023. Arthritis Asthma Hypertension Hypothyroidism Migraine Obstructive sleep apnea on CPAP Osteoporosis Type 2 diabetes mellitus Surgical History Surgical History History of cardiac catheterization (12/2019) Patent coronary arteries with normal LV function. History of left knee replacement History of lumbar spinal fusion (09/2022) Per Dr. Owens. History of partial hysterectomy History of right knee joint replacement Family History Family History Father Alcoholism Heart disease Asthma Emphysema lung Sibling Diabetes mellitus Alcoholism Heart disease Cancer Hypertension Cerebrovascular accident Emphysema lung Migraines Son Cancer Hypertension Kidney disease Other Cancer Mother Heart disease Emphysema lung Other Osteoporosis Social History Social History (Updated 06/07/23 @ 20:25 by Silvia Chery PA-C) Social History: Surrogate medical decision maker: Diane Gerard, daughter. Code status: Full code. Smoking status: Never smoker Second hand tobacco smoke exposure: Yes Alcohol intake: former Substance use: never Substance use type: does not use Lack of Transportation: No Lack of Food
[2023-06-08] MEDS: DULoxetine HCL 60 MG CAPSULE.DR PO (09:34)
[2023-06-08] MEDS: OPTI-GEN TAB 1 TABLET PO ×2 (09:34→17:30)
[2023-06-08] MEDS: PANTOPRAZOLE SOD SESQUIHYDRATE 20 MG TAB PO (09:34)
[2023-06-08] MEDS: SILDENAFIL CITRATE 20 MG TABLET PO ×3 (09:35→18:31)
[2023-06-08] MEDS: LORATADINE 10 MG TABLET PO (09:35)
[2023-06-08] MEDS: FUROSEMIDE 20 MG TABLET PO (09:35)
[2023-06-08] MEDS: DULoxetine HCL 30 MG CAPSULE.DR PO (09:35)
[2023-06-08 11:46] LABS: Glucose Point of Care 207 mg/dl (65-105)
[2023-06-08 11:55] LABS: Hematocrit 33.3 % (37.0-47.0); Hemoglobin 9.3 g/dL (12.0-15.0)
[2023-06-08] MEDS: INSULIN ASPART (*BKC) 100 UNITS/ML SUB-Q ×2 (11:55→20:39)
--- NOTE | 2023-06-08 12:54 | PM.IMPN ---
Progress Note: A&P Assessment and Plan (1) Colitis: Code(s): K52.9 - Noninfective gastroenteritis and colitis, unspecified Status: Acute Assessment and Plan: CT scan shows evidence of colitis of the distal transverse colon, splenic flexure, and descending colon. Started on Zosyn for possible infectious colitis. Lactic acid levels well within normal limits. Stool studies have been obtained and are pending Blood cultures no growth to date Dr. Topete has been consulted and his input is appreciated. Monitor electrolytes (2) GI bleed: Qualifiers: GI bleed type/associated pathology: unspecified gastrointestinal hemorrhage type Qualified Code(s): K92.2 - Gastrointestinal hemorrhage, unspecified Code(s): K92.2 - Gastrointestinal hemorrhage, unspecified Status: Acute Assessment and Plan: Hemoglobin and hematocrit will be trended and she will be transfused if indicate. Orthostatics remained negative. GI consulted and are not recommending colonoscopy at this time. Protonix q.12 (3) Aneurysm of descending thoracic aorta: Qualifiers: Presence of rupture: without rupture Qualified Code(s): I71.23 - Aneurysm of the descending thoracic aorta, without rupture Code(s): I71.23 - Aneurysm of the descending thoracic aorta, without rupture Status: Acute Assessment and Plan: A 3.3 cm descending thoracic aortic aneurysm was noted on CT and this should be followed up as an outpatient. (4) Type 2 diabetes mellitus: Code(s): E11.9 - Type 2 diabetes mellitus without complications Status: Acute Assessment and Plan: Insulin Lispro sliding scale, Accu-checks qAc and HS and Hold oral hypoglycemics Initiate hypoglycemic precautions (5) Obstructive sleep apnea on CPAP: Code(s): G47.33 - Obstructive sleep apnea (adult) (pediatric) Status: Acute Assessment and Plan: CPAP provided (6) Hypertension: Code(s): I10 - Essential (primary) hypertension Status: Acute Assessment and Plan: Monitor blood pressures. Patient remains stable (7) Hypothyroidism: Code(s): E03.9 - Hypothyroidism, unspecified Status: Acute Assessment and Plan: Continue levothyroxine TSH 1.03 Subjective Date/time seen: 06/08/23 12:54 Interval history: Patient is stable and states that she continues to have bright red blood per rectum. Patient is having blood whether she has a bowel movement or not. Patient states that when she uses the restroom and wipes there is a lot of blood in the toilet bowl and on the toilet paper. She denies dizziness, lightheadedness, fatigue and shortness of breath. She does have intermittent abdominal pain although it it seems to be very mild. She is still on a clear liquid diet at this time. GI not recommending colonoscopy at this time. Exam Narrative: GENERAL: Comfortable, no acute distress HENMT: moist mucous membranes EYES: EOM intact b/l NECK: no lymphadenopathy RESPIRATORY: clear to auscultation CARDIO: RRR GI: soft, nontender, bowel sounds present SKIN: no rashes EXTREMITIES: no edema, redness or tenderness Objective Data Vital Signs Vital Signs: Vital Signs - 24 hr 06/07/23 13:00 06/07/23 13:01 06/07/23 13:20 Temperature Pulse Rate 80 77 83 Respiratory Rate 22 H 21 H 24 H Blood Pressure 125/52 L Pulse Oximetry 98 98 98 Oxygen Delivery 06/07/23 13:30 06/07/23 13:36 06/07/23 13:45 Temperature Pulse Rate 79 81 80 Respiratory Rate 20 17 19 Blood Pressure 140/56 L Pulse Oximetry 100 100 99 Oxygen Delivery 06/07/23 13:46 06/07/23 14:00 06/07/23 14:01 Temperature Pulse Rate 82 82 83 Respiratory Rate 18 23 H 15 Blood Pressure 137/63 125/83 Pulse Oximetry 99 100 Oxygen Delivery 06/07/23 14:15 06/07/23 14:16 06/07/23 14:30 Temperature Pulse Rate 85 77 78 Respiratory Rate 25 H
[2023-06-08] MEDS: SODIUM CHLORIDE 0.9% IV 1,000 ML 85 ML IV CONT (15:09)
[2023-06-08 16:42] LABS: Glucose Point of Care 85 mg/dl (65-105)
[2023-06-08 18:58] LABS: Hematocrit 31.7 % (37.0-47.0); Hemoglobin 8.7 g/dL (12.0-15.0)
[2023-06-08] MEDS: MONTELUKAST SODIUM 10 MG TABLET PO (20:31)
[2023-06-08] MEDS: ATORVASTATIN 20 MG TABLET PO (20:31)
[2023-06-08] MEDS: ALPRAZolam (*CRX) 0.5 MG TABLET 1 MG PO (20:31)
[2023-06-08] MEDS: METOPROLOL SUCCINATE EXT REL 12.5 MG TABCR PO (20:31)
[2023-06-08] MEDS: PANTOPRAZOLE SODIUM IV 40 MG VIAL IV PUSH (20:32)
[2023-06-08 21:07] LABS: Glucose Point of Care 215 mg/dl (65-105)
[2023-06-09] VITALS (15 sets, daily range): BP systolic 119–143; BP diastolic 53–85; PULSE 74–102; RESP 14–18; TEMP 36.4–36.6; O2SAT 94–99
[2023-06-09 00:48] LABS: Hematocrit 28.7 % (37.0-47.0); Hemoglobin 8.2 g/dL (12.0-15.0)
[2023-06-09] MEDS: PIPERACILLIN/TAZ 2.25G/NS 50ML 2.25 GM/50 ML BAG IVPB ×5 (00:51→23:37)
[2023-06-09] MEDS: SODIUM CHLORIDE 0.9% IV 1,000 ML 85 ML IV CONT ×2 (04:56→17:08)
[2023-06-09] MEDS: LEVOTHYROXINE SODIUM 100 MCG TABLET PO (05:14)
[2023-06-09 05:59] LABS: Hematocrit 29.3 % (37.0-47.0); Hemoglobin 8.2 g/dL (12.0-15.0); Mean Corpuscular Hemoglobin 26.6 pg (26-34); Mean Corpuscular Volume 95.1 fl (80-100); Mean Platelet Volume 10.5 fl (7.4-10.4); Platelet Count Result 173 k/mm3 (150-375); Red Blood Count 3.08 M/mm3 (4.2-5.4); Red Cell Distribution Width 17.8 % (11.5-14.5); White Blood Count 5.4 K/mm3 (4.5-10.0)
[2023-06-09 06:10] LABS: Lactic Acid Reflex 1.3 mmol/L (0.7-2.0)
[2023-06-09 06:12] LABS: Alanine Aminotransferase 11 U/L (6-35); Albumin Level 3.2 g/dL (3.5-5.1); Alkaline Phosphatase 60 U/L (38-126); Anion Gap 8 mmol/L (8-16); Aspartate Amino Transferase 16 U/L (14-36); Bilirubin,Total 0.6 mg/dL (0.2-1.3); Blood Urea Nitrogen 8 mg/dL (7-17); Calcium 8.2 mg/dL (8.4-10.2); Carbon Dioxide 24 mmol/L (22-30); Chloride 109 mmol/L (98-107); Estimated CRCL calculation 34 ml/min; Estimated Glomerular Filt Rate 48; Glucose 129 mg/dL (65-110); Potassium 3.8 mmol/L (3.4-5.0); Sodium 141 mmol/L (137-145)
[2023-06-09 08:31] LABS: Glucose Point of Care 159 mg/dl (65-105)
[2023-06-09] MEDS: FLUTICASONE/SALMETEROL 115-21 MCG INHALER 1 PUFF 2 PUFF INHALATION ×2 (09:05→19:53)
[2023-06-09] MEDS: FUROSEMIDE 20 MG TABLET PO (09:19)
[2023-06-09] MEDS: DULoxetine HCL 30 MG CAPSULE.DR PO (09:20)
[2023-06-09] MEDS: SILDENAFIL CITRATE 20 MG TABLET PO ×3 (09:20→17:08)
[2023-06-09] MEDS: DULoxetine HCL 60 MG CAPSULE.DR PO (09:20)
[2023-06-09] MEDS: LORATADINE 10 MG TABLET PO (09:21)
[2023-06-09] MEDS: PANTOPRAZOLE SODIUM IV 40 MG VIAL IV PUSH ×2 (09:21→20:31)
[2023-06-09] MEDS: OPTI-GEN TAB 1 TABLET PO ×2 (09:23→17:08)
[2023-06-09 12:39] LABS: Glucose Point of Care 162 mg/dl (65-105)
--- NOTE | 2023-06-09 14:00 | WPDGIPROGNO ---
Progress Note: A&P Assessment and Plan (1) Colitis: Code(s): K52.9 - Noninfective gastroenteritis and colitis, unspecified Status: Acute Assessment and Plan: she is clinically much better, no more bleeding lactic acid normal hgb low but stable on antibiotic, ok to advance diet colonoscopy in 4-6 weeks (2) GI bleed: Qualifiers: GI bleed type/associated pathology: unspecified gastrointestinal hemorrhage type Qualified Code(s): K92.2 - Gastrointestinal hemorrhage, unspecified Code(s): K92.2 - Gastrointestinal hemorrhage, unspecified Status: Acute Assessment and Plan: resolved (3) Acute on chronic anemia: Code(s): D64.9 - Anemia, unspecified Status: Acute Assessment and Plan: h/h stable (4) Type 2 diabetes mellitus: Code(s): E11.9 - Type 2 diabetes mellitus without complications Status: Acute (5) Hypertension: Code(s): I10 - Essential (primary) hypertension Status: Acute Subjective Date/time seen: 06/09/23 14:00 Interval history: no rectal bleeding since admission, no pain and doing better tolerated liquid diet and would like to eat more Review of Systems Review of Systems: All systems reviewed & are unremarkable except as noted in HPI and below Exam Const: General: comfortable and no acute distress HENMT: Face/Nose/Sinus: Normal nares present Eyes: General: appearance normal, both eyes and all related structures Neck: Neck: supple Resp: Auscultation: clear to auscultation bilaterally Cardio: Rate: regular rate Rhythm: regular rhythm GI: Inspection: non-distended GI Palp: Yes Soft to palpation, No Tenderness to palpation present (GI) and No Guarding due to palpation present (GI) Auscultation: normal bowel sounds Skin: General skin exam: normal color Neuro: Speech: normal speech Motor exam (neuro): 5/5 motor strength present throughout Extrem: General: normal to inspection Psych: Mental Status: mental status grossly normal Objective Data Vital Signs Vital Signs: Vital Signs - 24 hr 06/08/23 16:03 06/08/23 18:30 06/08/23 20:31 Temperature Pulse Rate 92 105 H Respiratory Rate Blood Pressure 120/60 Pulse Oximetry Oxygen Delivery 06/08/23 21:01 06/08/23 20:00 06/08/23 20:00 Temperature Pulse Rate 78 95 Respiratory Rate Blood Pressure 120/54 L 124/69 Pulse Oximetry 95 Oxygen Delivery Room Air 06/08/23 20:00 06/08/23 20:00 06/08/23 20:00 Temperature 98.5 F Pulse Rate 106 H 78 Respiratory Rate 16 Blood Pressure 132/49 L Pulse Oximetry 96 Oxygen Delivery Room Air 06/08/23 22:40 06/08/23 20:00 06/09/23 00:00 Temperature Pulse Rate 85 90 88 Respiratory Rate Blood Pressure Pulse Oximetry 95 Oxygen Delivery CPAP 06/09/23 04:50 06/09/23 04:00 06/09/23 03:30 Temperature 97.9 F Pulse Rate 77 74 77 Respiratory Rate 14 Blood Pressure 119/54 L Pulse Oximetry 99 94 Oxygen Delivery CPAP 06/09/23 09:05 06/09/23 09:20 06/09/23 08:00 Temperature Pulse Rate 90 Respiratory Rate Blood Pressure Pulse Oximetry 96 Oxygen Delivery Room Air Room Air 06/09/23 12:00 Temperature Pulse Rate 81 Respiratory Rate Blood Pressure Pulse Oximetry Oxygen Delivery Intake/Output Intake/Output: Intake & Output 06/06/23 06/07/23 06/08/23 06/09/23 23:59 23:59 23:59 23:59 Intake Total 3713 4546 1200 Output Total 300 Balance 3413 4546 1200 Meds/Results Medications: Active Medications Generic Name Dose Route Start Last Admin Trade Name Freq PRN Reason Stop Dose Admin Acetaminophen 650 mg 06/07/23 20:35 Acetaminophen 325 Mg Tablet PO Q6H PRN Mild Pain (1-3) or Fever Alprazolam 1 mg 06/07/23 21:00 06/08/23 20:31 Alprazolam (*Crx) 0.5 Mg Tablet PO 1 mg HS ILYA Administration Atorvastatin Calcium 20 mg 06/07/23 21:55 06/08/23 20:31 Atorvastatin 20
--- NOTE | 2023-06-09 14:06 | PM.IMPN ---
Progress Note: A&P Assessment and Plan (1) Colitis: Code(s): K52.9 - Noninfective gastroenteritis and colitis, unspecified Status: Acute Assessment and Plan: CT scan shows evidence of colitis of the distal transverse colon, splenic flexure, and descending colon. Started on Zosyn for possible infectious colitis. Lactic acid levels well within normal limits. Stool studies ordered but pt has not had BM since ED arrival. Blood cultures no growth to date Dr. Topete has been consulted and his input is appreciated. Monitor electrolytes Advance diet as tolerated (2) GI bleed: Qualifiers: GI bleed type/associated pathology: unspecified gastrointestinal hemorrhage type Qualified Code(s): K92.2 - Gastrointestinal hemorrhage, unspecified Code(s): K92.2 - Gastrointestinal hemorrhage, unspecified Status: Acute Assessment and Plan: Hemoglobin and hematocrit will be trended and she will be transfused if indicate. Orthostatics remained negative. GI consulted and are not recommending colonoscopy at this time. Protonix q.12 (3) Aneurysm of descending thoracic aorta: Qualifiers: Presence of rupture: without rupture Qualified Code(s): I71.23 - Aneurysm of the descending thoracic aorta, without rupture Code(s): I71.23 - Aneurysm of the descending thoracic aorta, without rupture Status: Acute Assessment and Plan: A 3.3 cm descending thoracic aortic aneurysm was noted on CT and this should be followed up as an outpatient. (4) Type 2 diabetes mellitus: Code(s): E11.9 - Type 2 diabetes mellitus without complications Status: Acute Assessment and Plan: Insulin Lispro sliding scale, Accu-checks qAc and HS and Hold oral hypoglycemics Initiate hypoglycemic precautions (5) Obstructive sleep apnea on CPAP: Code(s): G47.33 - Obstructive sleep apnea (adult) (pediatric) Status: Acute Assessment and Plan: CPAP provided (6) Hypertension: Code(s): I10 - Essential (primary) hypertension Status: Acute Assessment and Plan: Monitor blood pressures. Patient remains stable (7) Hypothyroidism: Code(s): E03.9 - Hypothyroidism, unspecified Status: Acute Assessment and Plan: Continue levothyroxine TSH 1.03 Subjective Date/time seen: 06/09/23 14:06 Interval history: Patient tolerating her diet well. She has no complaints of abdominal pain. She has no more blood coming out of her rectum. She has not had a bowel movement since arrival to the hospital and has been unable to provide a stool sample. Her hemoglobin hematocrit have remained stable. Plan to advance her diet. Continue IV antibiotics. Exam Narrative: GENERAL: Comfortable, no acute distress HENMT: moist mucous membranes EYES: EOM intact b/l NECK: no lymphadenopathy RESPIRATORY: clear to auscultation CARDIO: RRR GI: soft, nontender, bowel sounds present SKIN: no rashes EXTREMITIES: no edema, redness or tenderness Objective Data Vital Signs Vital Signs: Vital Signs - 24 hr 06/08/23 16:03 06/08/23 18:30 06/08/23 20:31 Temperature Pulse Rate 92 105 H Respiratory Rate Blood Pressure 120/60 Pulse Oximetry Oxygen Delivery 06/08/23 21:01 06/08/23 20:00 06/08/23 20:00 Temperature Pulse Rate 78 95 Respiratory Rate Blood Pressure 120/54 L 124/69 Pulse Oximetry 95 Oxygen Delivery Room Air 06/08/23 20:00 06/08/23 20:00 06/08/23 20:00 Temperature 98.5 F Pulse Rate 106 H 78 Respiratory Rate 16 Blood Pressure 132/49 L Pulse Oximetry 96 Oxygen Delivery Room Air 06/08/23 22:40 06/08/23 20:00 06/09/23 00:00 Temperature Pulse Rate 85 90 88 Respiratory Rate Blood Pressure Pulse Oximetry 95 Oxygen Delivery CPAP 06/09/23 04:50 06/09/23 04:00 06/09/23 03:30 Temperature 97.9 F Pulse Rate 77 74 77 Respirator
[2023-06-09 17:13] LABS: Glucose Point of Care 97 mg/dl (65-105)
[2023-06-09] MEDS: ATORVASTATIN 20 MG TABLET PO (20:30)
[2023-06-09] MEDS: METOPROLOL SUCCINATE EXT REL 12.5 MG TABCR PO (20:31)
[2023-06-09] MEDS: MONTELUKAST SODIUM 10 MG TABLET PO (20:31)
[2023-06-09] MEDS: ALPRAZolam (*CRX) 0.5 MG TABLET 1 MG PO (20:31)
[2023-06-09 20:52] LABS: Glucose Point of Care 136 mg/dl (65-105)
[2023-06-10] VITALS (8 sets, daily range): BP systolic 115–121; BP diastolic 48–57; PULSE 71–105; RESP 12–16; TEMP 36.4–36.9; O2SAT 94–100
[2023-06-10] MEDS: SODIUM CHLORIDE 0.9% IV 1,000 ML 85 ML IV CONT (06:00)
[2023-06-10] MEDS: LEVOTHYROXINE SODIUM 100 MCG TABLET PO (06:00)
[2023-06-10] MEDS: PIPERACILLIN/TAZ 2.25G/NS 50ML 2.25 GM/50 ML BAG IVPB ×2 (06:01→12:15)
[2023-06-10 06:11] LABS: Basophils Percent Auto 0.5 % (0.2-1.2); Eosinophils Absolute Auto 0.2 K/mm3 (0-0.3); Eosinophils Percent Auto 5.9 % (0-4.4); Hematocrit 27.8 % (37.0-47.0); Immature Granulocyte Absolute 0.02 K/mm3 (0.00-0.031); Immature Granulocyte Percent A 0.5 % (0-0.5); Lymphocytes Percent Auto 30.8 % (18.3-44.2); Mean Corpuscular HGB Conc 28.8 g/dl (32-36); Mean Corpuscular Hemoglobin 27.1 pg (26-34); Mean Corpuscular Volume 94.2 fl (80-100); Mean Platelet Volume 9.6 fl (7.4-10.4); Monocytes Absolute Auto 0.3 K/mm3 (0.1-0.6); Monocytes Percent Auto 7.7 % (2.6-8.5); Neutrophils Absolute Auto 2.1 K/mm3 (1.3-6.7); Neutrophils Percent Auto 54.6 % (45.5-73.1); Platelet Count Result 160 k/mm3 (150-375); Red Blood Count 2.95 M/mm3 (4.2-5.4); Red Cell Distribution Width 17.9 % (11.5-14.5); White Blood Count 3.9 K/mm3 (4.5-10.0)
[2023-06-10 06:21] LABS: Lactic Acid Reflex 1.3 mmol/L (0.7-2.0)
[2023-06-10 06:27] LABS: Alanine Aminotransferase 11 U/L (6-35); Albumin Level 3.2 g/dL (3.5-5.1); Alkaline Phosphatase 55 U/L (38-126); Anion Gap 7 mmol/L (8-16); Aspartate Amino Transferase 23 U/L (14-36); Bilirubin,Total 0.5 mg/dL (0.2-1.3); Blood Urea Nitrogen 8 mg/dL (7-17); CRP 1.5 mg/dL (<1.0); Calcium 8.2 mg/dL (8.4-10.2); Carbon Dioxide 23 mmol/L (22-30); Chloride 110 mmol/L (98-107); Estimated CRCL calculation 38 ml/min; Estimated Glomerular Filt Rate 53; Glucose 127 mg/dL (65-110); Potassium 3.5 mmol/L (3.4-5.0); Sodium 140 mmol/L (137-145)
[2023-06-10 06:40] LABS: Anisocytosis 1+ (NORMAL); Hypochromasia 1+ (NORMAL); Microcytosis 1+ (NORMAL); Ovalocytes 1+ (NORMAL); Platelet Estimate Adequate (Adequate); Schistocytes None Seen (NORMAL)
[2023-06-10 08:09] LABS: Erythrocyte Sedimentation Rate 59 mm/hr (0-20)
[2023-06-10 08:27] LABS: Glucose Point of Care 125 mg/dl (65-105)
[2023-06-10] MEDS: FLUTICASONE/SALMETEROL 115-21 MCG INHALER 1 PUFF 2 PUFF INHALATION (08:31)
[2023-06-10] MEDS: FUROSEMIDE 20 MG TABLET PO (09:34)
[2023-06-10] MEDS: LORATADINE 10 MG TABLET PO (09:34)
[2023-06-10] MEDS: SILDENAFIL CITRATE 20 MG TABLET PO ×2 (09:34→12:54)
[2023-06-10] MEDS: OPTI-GEN TAB 1 TABLET PO (09:34)
[2023-06-10] MEDS: DULoxetine HCL 60 MG CAPSULE.DR PO (09:35)
[2023-06-10] MEDS: PANTOPRAZOLE SODIUM IV 40 MG VIAL IV PUSH (09:36)
[2023-06-10] MEDS: DULoxetine HCL 30 MG CAPSULE.DR PO (09:36)
--- NOTE | 2023-06-10 11:50 | PM.DS ---
DS: Admitting Diagnosis Discharge Date 06/10/23 Admitting Diagnosis Colitis, BRBPR DS: Discharge Diagnosis Discharge Diagnosis (1) Colitis: Code(s): K52.9 - Noninfective gastroenteritis and colitis, unspecified Status: Acute (2) GI bleed: Qualifiers: GI bleed type/associated pathology: unspecified gastrointestinal hemorrhage type Qualified Code(s): K92.2 - Gastrointestinal hemorrhage, unspecified Code(s): K92.2 - Gastrointestinal hemorrhage, unspecified Status: Acute (3) Aneurysm of descending thoracic aorta: Qualifiers: Presence of rupture: without rupture Qualified Code(s): I71.23 - Aneurysm of the descending thoracic aorta, without rupture Code(s): I71.23 - Aneurysm of the descending thoracic aorta, without rupture Status: Acute (4) Type 2 diabetes mellitus: Code(s): E11.9 - Type 2 diabetes mellitus without complications Status: Acute (5) Obstructive sleep apnea on CPAP: Code(s): G47.33 - Obstructive sleep apnea (adult) (pediatric) Status: Acute (6) Hypertension: Code(s): I10 - Essential (primary) hypertension Status: Acute (7) Hypothyroidism: Code(s): E03.9 - Hypothyroidism, unspecified Status: Acute DS: Summary Hospital Course Hospital Course: This is an 82-year-old female with past medical history of hypertension, hyperlipidemia, type 2 diabetes, obstructive sleep apnea on CPAP and has been the present to the ED on 06/07/2023 due to blood in her stool and 1 day of diarrhea. Patient was found to be hypotensive upon arrival to the ED with a hemoglobin hematocrit of 10.4/35.8 and magnesium of 1.4. CTA of abdomen and pelvis showed thickening of the wall of the distal transverse colon, splenic flexure of the colon, and descending colon with adjacent fat stranding compatible with colitis. magnesium was supplemented and she was started on Zosyn and IV fluids. GI consulted although they did not want to proceed with colonoscopy for another 4-6 weeks to let patient's large colon heal. Stool cultures were ordered but patient never had any more diarrhea after arrival to the ED. patient did not have any abdominal pain during her hospital stay. Her diet was advanced and she tolerated this well. Her hemoglobin did drop to 8.4 the day after she was admitted but it remained stable. She will be discharged on Augmentin. Recommended she follow-up with GI as an outpatient. Labs and vital signs are stable and she is medically clear for discharge at this time. Time Spent with Patient Time attestation: Total time spent providing and/or coordinating discharge services: Exam Narrative: GENERAL: Comfortable, no acute distress HENMT: moist mucous membranes EYES: EOM intact b/l NECK: no lymphadenopathy RESPIRATORY: clear to auscultation CARDIO: RRR GI: soft, nontender, bowel sounds present SKIN: no rashes EXTREMITIES: no edema, redness or tenderness DS: Data Data Completed and Pending Labs on day of discharge: Labs from last 24 hours 06/10/23 06/10/23 06/09/23 08:11 05:59 20:26 WBC 3.9 L RBC 2.95 L Hgb 8.0 L Hct 27.8 L MCV 94.2 MCH 27.1 MCHC 28.8 L RDW 17.9 H Plt Count 160 MPV 9.6 Immature Gran % (Auto) 0.5 Neut % (Auto) 54.6 Lymph % (Auto) 30.8 Castro % (Auto) 7.7 Eos % (Auto) 5.9 H Baso % (Auto) 0.5 Lymph # (Auto) 1.20 Castro # (Auto) 0.3 Eos # (Auto) 0.2 Baso # (Auto) 0.0 Abs Immat Gran (auto) 0.02 Absolute Neuts (auto) 2.1 Absolute Nucleated RBC 0.0 Nucleated RBC % 0.0 Platelet Estimate Adequate Hypochromasia 1+ Anisocytosis 1+ Microcytosis 1+ Ovalocytes 1+ Schistocytes None seen ESR 59 H Sodium 140 Potassium 3.5 Chloride 110 H Carbon Dioxide 23 Anion Gap 7 L BUN 8 Creatinine 1.00 Estim Creat Clear Calc 38 Estimated GFR 53 L Glucose 127 H POC Capillary Glucose 125
[2023-06-10 12:42] LABS: Glucose Point of Care 118 mg/dl (65-105)
== END 2023-06-10 13:40 | disposition home or self-care (01) | DRG 392 ==
LOC: ANHED 11:52 → ANH2MED 15:42
PROVIDERS: Internal Medicine Gastroenterology; Physician Assistant; Admitting Provider Internal Medicine; Emergency Provider Physician Assistant; PCP Family Medicine; Visit Provider Internal Medicine Critical Care Medicine
DX: K52.9 Noninfective gastroenteritis and colitis, unspecified (principal); K92.2 Gastrointestinal hemorrhage, unspecified; K57.90 Diverticulosis of intestine, part unspecified, without perforation or abscess without bleeding; I71.23 Aneurysm of the descending thoracic aorta, without rupture; G47.33 Obstructive sleep apnea (adult) (pediatric); I10 Essential (primary) hypertension; E03.9 Hypothyroidism, unspecified; E78.5 Hyperlipidemia, unspecified; J45.909 Unspecified asthma, uncomplicated; M19.90 Unspecified osteoarthritis, unspecified site; I95.9 Hypotension, unspecified; E11.9 Type 2 diabetes mellitus without complications; M81.0 Age-related osteoporosis without current pathological fracture; Z96.653 Presence of artificial knee joint, bilateral; Z98.1 Arthrodesis status; Z79.84 Long term (current) use of oral hypoglycemic drugs
CPT/HCPCS: 36415; 71045; 74174; 80048; 80053; 81003; 82948; 83605; 83690; 83735; 84443; 84484; 85014; 85018; 85025; 85027; 85610; 85652; 85730; 86140; 86850; 86900; 86901; 87040; 93005; 94640; 96361; 96365; 96366; 96368; 96375; 96376; 99285; A9270; C9113; G0378; J1815; J2543; J3475; J7030; J7040; Q9967

== ENCOUNTER → 2023-07-16 10:01 | Outpatient (CLI) | payer MEDICARE, SELFPAY ==
--- NOTE | ~2023-07-16 | XR_ITS ---
EXAM: XR lumbar spine 2-3V DATE: 07/16/2023 10:31 HISTORY: M41.9 - Scoliosis, unspecified . COMPARISON: None available. FINDINGS: 5 nonrib-bearing lumbar-type vertebral bodies. Posterior fusion from L2 through L5 with janine ne graft material. No perihilar hardware lucency or hardware fracture. Atherosclerotic aortic calcifi cation measuring up to 3.2 cm. Stable grade 1 retrolisthesis at L1-2. Stable grade 1 anterolisthesis at L4-5. Stable mild height loss at L1. Multilevel degenerative disc disease and facet arthropathy. N o fracture or dislocation. IMPRESSION: Grade 1 listheses at L1-2 and L4-5, unchanged. Uncomplicated L2-5 posterior hardware fusi on. 3.2 cm abdominal aortic aneurysm, consider ultrasound of the aorta for further evaluation. Reviewed, dictated and finalized at location K. P HANDLER IMPRESSION: Grade 1 listheses at L1-2 and L4-5, unchanged. Uncomplicated L2-5 p osterior hardware fusion. 3.2 cm abdominal aortic aneurysm, consider ultrasound of the aorta for further evaluation.
== END ==
PROVIDERS: PCP Physician Assistant; Visit Provider Physician Assistant
DX: M41.9 Scoliosis, unspecified (principal)
CPT/HCPCS: 72100

== ENCOUNTER 2023-07-22 00:51 | Day surgery (SDC) | payer MEDICARE, SELFPAY ==
[2023-07-09 10:23] VITALS: BMI 36.1
[2023-07-09 10:48] VITALS: BMI 36.1
--- NOTE | 2023-07-18 14:01 | SUR.PREOP ---
Patient called regarding upcoming procedure. Reviewed preop instructions, appointment times, and procedure prep.
[2023-07-22 06:26] VITALS: BP 137/64; PULSE 105; RESP 18; TEMP 36.1; O2SAT 100
[2023-07-22 06:36] LABS: Glucose Point of Care 122 mg/dl (65-105)
[2023-07-22] MEDS: LACTATED RINGERS 1,000 ML 150 ML IV CONT (06:42)
--- NOTE | 2023-07-22 07:31 | PM.HPGS ---
History of Present Illness History of Present Illness Consent: Risks, benefits, and alternatives have been discussed and questions answered. Patient agrees to proceed with procedure. Chief complaint: Gastrointestinal hemorrhage, Narrative: Oumou Villagran is a 82 year old female with colitis about 1.5 month ago that required hospitalization, now asymptomatic. Last colonoscopy more than 15 years ago Review of Systems Constitutional: Constitutional: Denies headache(s) and Denies weakness Eyes: Eyes: Denies blurry vision ENT: Reports Normal hearing present, Denies headache(s) and Denies neck pain Cardiovascular: Cardiovascular: Denies chest pain and Denies dyspnea Respiratory: Respiratory: Denies dyspnea Gastrointestinal: Gastrointestinal: Reports no additional gastrointestinal complaints Genitourinary: Genitourinary: Denies dysuria Musculoskeletal: Musculoskeletal: Denies neck pain Integumentary/Breasts: Skin/Breast: Denies dry skin Neurologic: Reports Normal hearing present, Denies headache(s) and Denies weakness Psychiatric: Psychiatric: Denies anxiety Endocrine: Endocrine: Denies change in body appearance Hematologic/Lymphatic: Hematologic/Lymphatic: Denies easy bleeding Allergic/Immunologic: Allergic/Immunologic: Denies urticaria PMFSH Past Medical History Medical History Acute on chronic anemia Aneurysm of descending thoracic aorta Measuring 3.3 cm as of 06/07/2023. Arthritis Asthma Hypertension Hypothyroidism Migraine Obstructive sleep apnea on CPAP Osteoporosis Type 2 diabetes mellitus Surgical History Surgical History History of cardiac catheterization (12/2019) Patent coronary arteries with normal LV function. History of left knee replacement History of lumbar spinal fusion (09/2022) Per Dr. Owens. History of partial hysterectomy History of right knee joint replacement Family History Family History Father Alcoholism Heart disease Asthma Emphysema lung Sibling Diabetes mellitus Alcoholism Heart disease Cancer Hypertension Cerebrovascular accident Emphysema lung Migraines Son Cancer Hypertension Kidney disease Other Cancer Mother Heart disease Emphysema lung Other Osteoporosis Social History Social History Social History: Surrogate medical decision maker: Diane Gerard, daughter. Code status: Full code. Smoking status: Never smoker Second hand tobacco smoke exposure: Yes Alcohol intake: never Substance use: never Substance use type: does not use Lack of Transportation: No Lack of Food: Never True Current Housing: I Have Housing Concerned About Future Housing: No Difficulty Paying Gas/Electric Bills: No Difficulty Paying for Meds: No Currently Unemployed: No Education: High School Diploma/GED Difficulty w/ Childcare or Family Care: No Living arrangements: alone Occupation/Education: retired Spiritual care concerns: No Meds Home Medications and Allergies Home Medications Medication Instructions Recorded Confirmed Type alprazolam 1 mg tablet (Xanax) 1 mg PO HS 06/19/22 07/09/23 History atorvastatin 20 mg tablet 20 mg PO HS 06/19/22 07/09/23 History dapagliflozin propanediol 10 mg 10 mg PO DAILY 06/19/22 07/09/23 History tablet (Farxiga) diclofenac sodium 75 mg 75 mg PO BID 06/19/22 07/09/23 History tablet,delayed release duloxetine 30 mg capsule,delayed 30 mg PO DAILY 06/19/22 07/09/23 History release duloxetine 60 mg capsule,delayed 60 mg PO DAILY 06/19/22 07/09/23 History release fluticasone furoate 100 1 inh inhalation DAILY 06/19/22 07/09/23 History mcg-vilanterol 25 mcg/dose inhalation powder (Breo Ellipta) furosemide 20 mg tablet 20 mg PO QAM 06/19/22 07/09/23 Histor
--- NOTE | 2023-07-22 07:33 | WPDANESEPPF ---
Anes - Initial Pre Proc Eval Procedure: Operation Date: 07/22/23 07:30 Proposed Procedures p Colonoscopy - Leonides Topete MD Date/Time: 07/22/23 07:33 Surgeon: Leonides Topete MD Pre Op Diagnosis: Gastrointestinal hemorrhage, Patient Data Age: 82 Gender: F Height: 1.52 m Weight: 82.3 kg Last Vital Signs Temp 96.9 F L 07/22/23 06:26 Pulse 105 H 07/22/23 06:26 Resp 18 07/22/23 06:26 BP 137/64 07/22/23 06:26 Pulse Ox 100 07/22/23 06:26 O2 Del Method Room Air 07/22/23 06:26 Allergies Allergy/AdvReac Type Severity Reaction Status Date / Time venom-wasp Allergy Severe Anaphylactic Verified 07/22/23 06:24 Shock Home Medications Medication Instructions Recorded Confirmed Type alprazolam 1 mg tablet (Xanax) 1 mg PO HS 06/19/22 07/09/23 History atorvastatin 20 mg tablet 20 mg PO HS 06/19/22 07/09/23 History dapagliflozin propanediol 10 mg 10 mg PO DAILY 06/19/22 07/09/23 History tablet (Farxiga) diclofenac sodium 75 mg 75 mg PO BID 06/19/22 07/09/23 History tablet,delayed release duloxetine 30 mg capsule,delayed 30 mg PO DAILY 06/19/22 07/09/23 History release duloxetine 60 mg capsule,delayed 60 mg PO DAILY 06/19/22 07/09/23 History release fluticasone furoate 100 1 inh inhalation DAILY 06/19/22 07/09/23 History mcg-vilanterol 25 mcg/dose inhalation powder (Breo Ellipta) furosemide 20 mg tablet 20 mg PO QAM 06/19/22 07/09/23 History levothyroxine 75 mcg capsule 100 mcg PO DAILY 06/19/22 07/09/23 History loratadine 10 mg tablet 10 mg PO DAILY 06/19/22 07/09/23 History metformin 500 mg tablet 500 mg PO BID 06/19/22 07/09/23 History metoprolol succinate 25 mg 12.5 mg PO HS 06/19/22 07/09/23 History tablet,extended release 24 hr sildenafil (pulm.hypertension) 20 20 mg PO TID 06/19/22 07/09/23 History mg tablet esomeprazole magnesium 20 mg 20 mg PO DAILY 07/09/22 07/09/23 History capsule,delayed release (Nexium) flaxseed oil 5 ml miscellaneous BID 07/09/22 07/09/23 History montelukast 10 mg tablet 10 mg PO HS 07/09/22 07/09/23 History vitamins A,C,G-icwn-nriseb 4,296 1 cap PO QAM AND QPM 07/09/22 07/09/23 History mcg-226 mg-90 mg capsule (PreserVision AREDS) cyanocobalamin (vitamin B-12) 1,000 mcg IM MONTHLY 06/07/23 07/09/23 History 1,000 mcg/mL injection solution pantoprazole 40 mg tablet,delayed 40 mg PO QAM #30 tabs 06/10/23 07/09/23 Rx release (Protonix) Laboratory Tests 07/22/23 06:29 POC Capillary Glucose 122 H mg/dl (65-105) Patient hx anesthesia problems: none Family hx anesthesia problems: none Results Review: All pre-operative results and documents have been reviewed as part of the pre-operative evaluation. [facility] Past Medical History Medical History Acute on chronic anemia Aneurysm of descending thoracic aorta Measuring 3.3 cm as of 06/07/2023. Arthritis Asthma Hypertension Hypothyroidism Migraine Obstructive sleep apnea on CPAP Osteoporosis Type 2 diabetes mellitus Surgical History Surgical History History of cardiac catheterization (12/2019) Patent coronary arteries with normal LV function. History of left knee replacement History of lumbar spinal fusion (09/2022) Per Dr. Owens. History of partial hysterectomy History of right knee joint replacement Family History Family History Father Alcoholism Heart disease Asthma Emphysema lung Sibling Diabetes mellitus Alcoholism Heart disease Cancer Hypertension Cerebrovascular accident Emphysema lung Migraines Son Cancer Hypertension Kidney disease Other Cancer Mother Heart disease Emphysema lung Other Osteoporosis Social History Social History Social History: Surrogate medical deci
[2023-07-22 07:54] VITALS: BP 111/60; PULSE 74; RESP 20; O2SAT 100
[2023-07-22 08:04] VITALS: BP 119/59; PULSE 72; RESP 20; O2SAT 99
[2023-07-22 08:14] VITALS: BP 117/72; PULSE 74; RESP 18; O2SAT 100
== END 2023-07-22 08:22 | disposition home or self-care (01) ==
PROVIDERS: PCP Family Medicine; Visit Provider Internal Medicine Gastroenterology
PROC: 0DJD8ZZ Inspection of Lower Intestinal Tract, Via Natural or Artificial Opening Endoscopic (ICD-10-PCS; CPT 45378; principal; 2023-07-22 07:30)
DX: Z09 Encounter for follow-up examination after completed treatment for conditions other than malignant neoplasm (principal); K57.30 Diverticulosis of large intestine without perforation or abscess without bleeding; K64.8 Other hemorrhoids; Z87.19 Personal history of other diseases of the digestive system; I71.23 Aneurysm of the descending thoracic aorta, without rupture; I10 Essential (primary) hypertension; J45.909 Unspecified asthma, uncomplicated; E03.9 Hypothyroidism, unspecified; D64.9 Anemia, unspecified; G47.33 Obstructive sleep apnea (adult) (pediatric); E11.9 Type 2 diabetes mellitus without complications; M81.0 Age-related osteoporosis without current pathological fracture; Z98.1 Arthrodesis status; Z79.84 Long term (current) use of oral hypoglycemic drugs
CPT/HCPCS: 45378; 82948; J2704; J7120

== ENCOUNTER 2023-09-30 10:33 | Outpatient (CLI) | payer MEDICARE, SELFPAY ==
--- NOTE | ~2023-09-30 | XR_ITS ---
EXAMINATION: XR lumbar spine min 4V DATE: 09/30/2023 10:53 INDICATION: History of lumbar surgery TECHNIQUE: Anteroposterior and lateral in neutral, flexion and extension views of the lumbar spine, a nd cone-down lateral view of the lumbosacral junction were obtained. COMPARISON: 07/16/2023 FINDINGS: There are changes of posterior fusion and laminectomy from L2 through L5. There are 3 mm of anterolisthesis of L3 on L4 and 4 mm of anterolisthesis of L4 on L5. There is no hypermobility with flexion or extension. There is an unchanged compression fracture of L1. The vertebral body heights ar e otherwise maintained. There is unchanged severe loss of intervertebral disc space height at L4-5. T here is moderate loss of intervertebral disc space height at L2-3 and mild loss of disc space height throughout the remainder of the lumbar spine. Calcified atherosclerosis is noted. IMPRESSION: 1. Surgical changes, chronic L1 compression fracture, and mild to moderate lumbar spondylosis without acute findings or significant interval change. Reviewed, dictated and finalized at location L. [employer]ET[employer] SPECIALIST IMPRESSION: 1. Surgical changes, chronic L1 compression fracture, and mild to moderate lumb ar spondylosis without acute findings or significant interval change.
== END 2023-09-30 10:34 ==
LOC: MICIMG 10:36
PROVIDERS: PCP Physician Assistant; Visit Provider Physician Assistant
DX: Z09 Encounter for follow-up examination after completed treatment for conditions other than malignant neoplasm (principal); M47.896 Other spondylosis, lumbar region
CPT/HCPCS: 72110

== ENCOUNTER 2023-10-21 10:01 | Outpatient (CLI) | payer MEDICARE, SELFPAY ==
--- NOTE | ~2023-10-21 | MR_ITS ---
MRI of the thoracic spine Clinical History: Back pain Technique: Axial T2-weighted and gradient images, and sagittal T1-weighted, T2-weighted, and STIR jose ges were acquired. Findings: There is no fracture or subluxation of the thoracic spine. Vertebral bodies maintain normal height and alignment. No bone marrow signal abnormality seen. No significant disc bulge or herniation seen at any thoracic level. No spinal canal stenosis or cord compression in the thoracic spine. No abnormal signal seen in the spinal cord. Paravertebral soft tissues are unremarkable. Impression: No significant abnormality seen. Reviewed, dictated and finalized at location . Impression: No significant abnormality seen.
--- NOTE | ~2023-10-21 | MR_ITS ---
MRI of the lumbar spine Clinical History: Back pain Technique: Axial T2-weighted images, and sagittal T1-weighted, T2-weighted, and STIR images were acqu ired. COMPARISON: 06/03/2022 Findings: Patient is status post interval posterior fusion from L2 through L5, with bilateral rods an d transpedicular screws present. There is posterior decompression at L3-L4. There is underlying 5 mm anterolisthesis of L4 over L5. There is underlying 4 mm anterolisthesis of L3 over L4. Stable chronic mild compression deformity of L1. No acute fracture or suspicious bone marrow signal abnormality see n. At L1-L2, there is advanced degenerative disc narrowing. There is a left paracentral to left foramina l disc protrusion, with moderate left neural foraminal narrowing. Right neural foramen minimally narr owed. No central canal stenosis. At L2-L3, there is disc bulge. No central canal stenosis. There is severe right neural foraminal narr owing, and minimal left neural foraminal narrowing. At L3-L4, there is disc bulge. No central canal stenosis. There is mild to moderate bilateral neural foraminal narrowing. At L4-L5, there is advanced degenerative spurring with disc bulge. No central canal stenosis. There i s advanced right neural foraminal narrowing, and moderate left neural foraminal narrowing. At L5-S1, there is mild disc bulge and mild facet arthropathy. No central canal stenosis. There is mo derate left neural foraminal narrowing. Right neural foramen preserved. Paravertebral soft tissues demonstrate postoperative change with associated seroma posterior to the t hecal sac at the L3 and L4 levels (sagittal image 10).. Impression: Status post interval posterior fusion from L3 through L5, with associated posterior paravertebral ser azam, as detailed above. Moderate degenerative spondylosis, as above. Chronic 5 mm anterolisthesis of L4 over L5. 4 mm anterolisthesis of L3 over L4. Chronic compression fracture of L1. Reviewed, dictated and finalized at location M. Impression: Status post interval posterior fusion from L3 through L5, with associated poste rior paravertebral seroma, as detailed above. Moderate degenerative spondylosis, as above. Chronic 5 mm anterolisthesis of L4 over L5. 4 mm anterolisthesis of L3 over L4. Chronic compression fracture of L1.
== END 2023-10-21 10:02 ==
LOC: MICIMG 10:02
PROVIDERS: PCP Family Medicine; Visit Provider Nurse Practitioner Family
DX: M54.59 Other low back pain (principal)
CPT/HCPCS: 72146; 72148

== ENCOUNTER 2024-02-04 09:22 | Outpatient (CLI) | payer MEDICARE, SELFPAY ==
[2024-02-04 09:55] LABS: Hematocrit 31.1 % (37.0-47.0); Hemoglobin 9.1 g/dL (12.0-15.0); Mean Corpuscular HGB Conc 29.3 g/dl (32-36); Mean Corpuscular Hemoglobin 27.1 pg (26-34); Mean Corpuscular Volume 92.6 fl (80-100); Mean Platelet Volume 9.3 fl (7.4-10.4); Platelet Count Result 157 k/mm3 (150-375); Red Blood Count 3.36 M/mm3 (4.2-5.4); Red Cell Distribution Width 17.2 % (11.5-14.5); White Blood Count 4.4 K/mm3 (4.5-10.0)
[2024-02-04 10:02] LABS: Appearance Urine Clear (Clear); Bacteria Urine None Seen /hpf; Bilirubin Urine Negative (Negative); Blood Urine Negative (Negative); Color Urine Yellow (Yellow); Glucose Urine UA Negative (Negative); Ketones Urine Trace mg/dL (Negative); Leukocyte Esterase Ur 2+ LEU/UL (Negative); Nitrate Urine Negative (Negative); Protein Urine Trace mg/dL (Negative); RBC Urine 0-2 /hpf (0-2); Specific Grav Ur 1.017 (1.001-1.035); Squamous Epithelial Cell Urine Occasional /hpf (Few); WBC Urine 21-50 /hpf (0-3); pH Urine 5.5 (5.0-9.0)
[2024-02-04 10:07] LABS: Anion Gap 9 mmol/L (4-12); Blood Urea Nitrogen 12 mg/dL (7-17); Calcium 9.1 mg/dL (8.4-10.2); Carbon Dioxide 27 mmol/L (22-30); Chloride 108 mmol/L (98-107); Estimated Glomerular Filt Rate 47; Glucose 202 mg/dL (65-110); Potassium 3.6 mmol/L (3.4-5.0); Sodium 144 mmol/L (137-145)
[2024-02-04 10:09] LABS: Add Urine Microscopic? YES
[2024-02-04 10:10] LABS: Hemoglobin A1C 6.1 % (<5.7)
[2024-02-04 10:13] LABS: INR 1.1; Prothrombin Time 14.2 Seconds (11.1-14.7)
[2024-02-04 10:14] LABS: Partial Thromboplastin Time 25.9 Seconds (22.3-36.8)
== END 2024-02-04 09:23 | disposition home or self-care (01) ==
LOC: ANHSURGERY 09:30
PROVIDERS: PCP Family Medicine; Visit Provider Neurological Surgery
DX: M96.1 Postlaminectomy syndrome, not elsewhere classified (principal); Z01.818 Encounter for other preprocedural examination
CPT/HCPCS: 36415; 80048; 81001; 83036; 85027; 85610; 85730; 87086; 87088

== ENCOUNTER 2024-02-11 16:28 | Observation (INO) | payer MEDICARE, SELFPAY ==
[2024-01-29 14:34] VITALS: BMI 36.1
--- NOTE | 2024-01-29 14:59 | PC.NURSE ---
PRE-OP INSTRUCTIONS PLEASE READ CAREFULLY Report to the Outpatient Waiting Room, entrance under the green pavilion located off [facility], at time _0600_ on date _02/11/24_. Planned Procedure Time: _0730_. Time changes happen often and if your time is changed the preop area will call you the afternoon before. - You and your visitor will be asked to self-screen and do not enter if you have any COVID symptoms. - A mask is optional within the hospital at this time. Patients may have clear liquids (water, carbonated beverages, clear teas, apple juice) until 3 hours prior to surgery (0430 AM) with a maximum of 20 ounces. - No food from midnight until time of surgery Take the following medications with a SIP of water the morning of surgery: _DULOXETINE, LEVOTHYROXINE, _ DO NOT STOP ANY OF YOUR OTHER PRESCRIPTION MEDICATIONS PRIOR TO SURGERY ?EXCEPT THE FOLLOWING Medications to discontinue per ANESTHESIA - _VITAMINS/SUPPLEMENTS 3 DAYS PRIOR TO SURGERY, Date to take last dose 02/07/24_ Please no make-up, nail romanian, hairspray, perfume, deodorant, or body powder the day of surgery. No jewelry (including any body piercings) or valuables the day of surgery, leave them at home. Please take a shower or bath the night before, or the morning of, surgery with an antibacterial soap. Wear comfortable, loose fitting clothing. - Jewelry must be removed prior to entering the operating room. Rings and piercings that are not removed may be cut off. - The hospital will not accept responsibility for valuables. - Please leave all valuables, including medications, at home the day of surgery. If you are going home after surgery, a licensed utility driver must drive you home. - NO public transportation without another adult if you receive anesthesia. - We recommend that an adult stay with you for 24 hours following discharge. - We also recommend that you do not drive, make important decision, drink alcoholic beverages, or take any drugs that were not prescribed by your health care provider for at least 24 hours after your discharge time. Follow any additional instructions given to you from your surgeon. If you or anyone in your household have experienced Covid symptoms in the past week, please notify your surgeon or the nurse liaison at the phone number below for possible testing. Telephone instructions given to _PATIENT'S DAUGHTER - CICI_and asked if any additional questions and then verbalized understanding. Patient advised to call surgeon office or pre surgery nurse liaison [phone] if any additional questions.
[2024-02-11] VITALS (29 sets, daily range): BP systolic 90–140; BP diastolic 47–97; PULSE 80–130; RESP 10–26; TEMP 36.4–36.7; O2SAT 88–100
--- NOTE | ~2024-02-11 | XR_ITS ---
EXAMINATION: XR surgery orthopedic DATE: 02/11/2024 09:20 INDICATION: T9 laminotomy for placement of spinal cord stimulator TECHNIQUE: Single frontal fluoroscopic image of the lower thoracic spine was obtained during procedur e performed by Dr. Stafford. Radiologist was not present for the imaging or procedure. The amount of f luoroscopy time used during this procedure was 0.3 minutes. Total DAP was 0.107 mGym^2 COMPARISON: None. FINDINGS: Spinal stimulator lead projects of the central canal of the lower thoracic spine. The level is unable to be definitively determined from the limited [id number]-[id number]. There is some lucency projec ting over the spinal stimulator leads likely reflecting surgical exposure of the overlying soft tissu es. IMPRESSION: 1. Fluoroscopy utilized during reported T9 laminotomy for placement of spinal cord stimulator. See pr ocedure note for further detail. Reviewed, dictated and finalized at location B. IMPRESSION: 1. Fluoroscopy utilized during reported T9 laminotomy for placement of spinal c ord stimulator. See procedure note for further detail.
--- NOTE | ~2024-02-11 | CT_ITS ---
CTA abdomen pelvis Ordering provider: Irene Stafford MD History: . severe abd pain, history of AAA . Comparison: None. Technique: CT angiogram abdomen and pelvis was performed following timed intravenous injection of con trast. Thin slice axial images and reformatted coronal images were obtained. Three dimensional reform atted images of the chest were also obtained using a Vitrea workstation. . Automated exposure contro l and iterative reconstruction technique were employed. The dose-length product was 2093.16 mGy-cm. 1 00 mL Omnipaque 350 was given IV. FINDINGS: VISUALIZED LOWER CHEST: Minimal Right pleural effusion. Mild dependent atelectasis bilaterally. Sligh t Narrowing of the main bronchi. Bulge in the interventricular septum of the heart is seen further ev aluation advised. UPPER ABDOMINAL ORGANS: Liver: Normal. Gallbladder: Normal. Spleen: Normal. Stomach/duodenum: Normal. Pancreas: Normal. Adrenals: Normal. Kidneys: Normal. PELVIC ORGANS: The bladder is normal. BOWEL AND MESENTERY: Colon: Mild diverticulosis without diverticulitis sigmoid colon. Appendix is not demonstrated. Small Bowel: Normal. No obstruction. Peritoneum/mesentery: No free air. Trace of free fluid in the pelvis. No mesenteric lymphadenopathy. RETROPERITONEUM: No retroperitoneal lymphadenopathy. ABDOMINAL AORTA: No dissection. The maximum diameter is 3.3 cm. ILIAC ARTERIES AND BRANCHING VESSELS: Normal in caliber. Atherosclerotic changes. RENAL ARTERIES: Normal caliber. CELIAC AXIS AND BRANCHING VESSELS: Normal. SUPERIOR MESENTERIC ARTERY AND BRANCHING VESSELS: Normal. INFERIOR MESENTERIC ARTERY: Normal. VISUALIZED FEMORAL ARTERIES: Normal. MUSCULOSKELETAL: Superficial soft tissues: The superficial soft tissues are normal. Spinal stimulator is seen in the r ight buttock area. Bones: Age appropriate degenerative changes of the spine. Pubic symphysitis. Postoperative changes in the lower lumbar area. Minimal anterolisthesis at the level of L4-L5. Minimal retrolisthesis at the level of L1-L2. Slight loss of volume of L1 most likely chronic. IMPRESSION: 1. Mild dilatation of the superior aorta. Maximum measurement is 3.3 cm. No dissection. 2. No acute abdominal process. 3. Right minimal pleural effusion with bilateral minimal atelectasis. Reviewed, dictated and finalized at location A. IMPRESSION: 1. Mild dilatation of the superior aorta. Maximum measurement is 3.3 cm. No di ssection. 2. No acute abdominal process. 3. Right minimal pleural effusion with bilateral minimal atelectasis.
[2024-02-11] MEDS: LACTATED RINGERS 1,000 ML 30 ML IV CONT ×2 (06:50→09:20)
[2024-02-11 06:51] LABS: Glucose Point of Care 155 mg/dl (65-105)
--- NOTE | 2024-02-11 07:24 | WPDANESEPPF ---
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 Patient Data Age: 83 Gender: F Height: 1.52 m Weight: 86.6 kg Last Vital Signs Temp 97.6 F 02/11/24 06:26 Pulse 95 02/11/24 07:01 Resp 18 02/11/24 06:26 BP 107/54 L 02/11/24 06:26 Pulse Ox 95 02/11/24 06:26 O2 Del Method Room Air 02/11/24 06:26 Allergies Allergy/AdvReac Type Severity Reaction Status Date / Time venom-wasp Allergy Severe Anaphylactic Verified 02/11/24 06:35 Shock Home Medications Medication Instructions Recorded Confirmed Type alprazolam 1 mg tablet (Xanax) 1 mg PO HS 06/19/22 02/11/24 History atorvastatin 20 mg tablet 20 mg PO HS 06/19/22 02/11/24 History furosemide 20 mg tablet 20 mg PO QAM 06/19/22 02/11/24 History levothyroxine 75 mcg capsule 100 mcg PO DAILY 06/19/22 02/11/24 History loratadine 10 mg tablet 10 mg PO DAILY 06/19/22 02/11/24 History metoprolol succinate 25 mg 12.5 mg PO HS 06/19/22 02/11/24 History tablet,extended release 24 hr sildenafil (pulm.hypertension) 20 20 mg PO TID 06/19/22 02/11/24 History mg tablet esomeprazole magnesium 20 mg 20 mg PO DAILY 07/09/22 02/11/24 History capsule,delayed release (Nexium) flaxseed oil 5 ml miscellaneous BID 07/09/22 02/11/24 History montelukast 10 mg tablet 10 mg PO HS 07/09/22 02/11/24 History vitamins A,C,I-bapm-qlrucg 4,296 1 cap PO QAM AND QPM 07/09/22 02/11/24 History mcg-226 mg-90 mg capsule (PreserVision AREDS) cyanocobalamin (vitamin B-12) 1,000 mcg IM MONTHLY 06/07/23 02/11/24 History 1,000 mcg/mL injection solution albuterol 90 mcg/actuation aerosol 90 mcg inhalation QID PRN Wheezing 10/03/23 02/11/24 History inhaler lisinopril 5 mg tablet 5 mg PO DAILY 10/03/23 02/11/24 History linaclotide 72 mcg capsule 72 mcg PO DAILY 12/25/23 02/11/24 History (Linzess) semaglutide 0.25 mg or 0.5 mg (2 0.25 mg subcut WEEKLY 12/25/23 02/11/24 History mg/1.5 mL) subcutaneous pen injector duloxetine 30 mg capsule,delayed 30 mg PO DAILY 01/29/24 02/11/24 History release duloxetine 60 mg capsule,delayed 60 mg PO DAILY 01/29/24 02/11/24 History release Laboratory Tests 02/11/24 06:44 POC Capillary Glucose 155 H mg/dl (65-105) Patient hx anesthesia problems: none Family hx anesthesia problems: none Results Review: All pre-operative results and documents have been reviewed as part of the pre-operative evaluation. [facility] Past Medical History Medical History Acute on chronic anemia Aneurysm of descending thoracic aorta Measuring 3.3 cm as of 06/07/2023. Arthritis Asthma Hypertension Hypothyroidism Migraine Obstructive sleep apnea on CPAP Osteoporosis Type 2 diabetes mellitus Surgical History Surgical History History of cardiac catheterization (12/2019) Patent coronary arteries with normal LV function. History of left knee replacement History of lumbar spinal fusion (09/2022) Per Dr. Owens. History of partial hysterectomy History of right knee joint replacement Family History Family History Father Alcoholism Heart disease Asthma Emphysema lung Sibling Diabetes mellitus Alcoholism Heart disease Cancer Hypertension Cerebrovascular accident Emphysema lung Migraines Son Cancer Hypertension Kidney disease Other Cancer Mother Heart disease Emphysema lung Other Osteoporosis Social History Social History Social History: Surrogate medical decision maker: Diane Gerard, daughter. Code status: Full code.
--- NOTE | 2024-02-11 07:24 | WPDHPUPDATE1 ---
History and Physical Update Update Date/Time: 02/11/24 07:24 History and Physical has been reviewed, including an updated exam of the patient. There are NO changes in the patient's condition. Risks, benefits, and alternatives have been discussed and questions answered. Patient agrees to proceed with procedure.
--- NOTE | 2024-02-11 07:25 | PM.IMHP ---
H&P: HPI History of Present Illness Date/Time: 02/11/24 07:25 Chief Complaint: Back pain Narrative: Ms. Villagran is an 83-year-old female with history of diabetes, hypertension, atrial fibrillation who was referred by [facility] for spinal cord stimulator placement. The patient had an L2-5 lumbar decompression and fusion with Dr. Owens in September 2022. In the preoperative radicular leg symptoms that she had prior to surgery have resolved, but she has continued to have low back pain that worsens with activity in particular. She has been taking ucxz-led-sqfkefu medications as well as diclofenac which have not been significantly helpful. she had bilateral SI joint injections without relief. She did have physical therapy as well. She recently had a spinal cord stimulator trial with an [employer] platform from which she had 75% relief of her symptoms Review of Systems Review of Systems: All systems reviewed & are unremarkable except as noted in HPI and below PMFSH Past Medical History Medical History Acute on chronic anemia Aneurysm of descending thoracic aorta Measuring 3.3 cm as of 06/07/2023. Arthritis Asthma Hypertension Hypothyroidism Migraine Obstructive sleep apnea on CPAP Osteoporosis Type 2 diabetes mellitus Surgical History Surgical History History of cardiac catheterization (12/2019) Patent coronary arteries with normal LV function. History of left knee replacement History of lumbar spinal fusion (09/2022) Per Dr. Owens. History of partial hysterectomy History of right knee joint replacement Family History Family History Father Alcoholism Heart disease Asthma Emphysema lung Sibling Diabetes mellitus Alcoholism Heart disease Cancer Hypertension Cerebrovascular accident Emphysema lung Migraines Son Cancer Hypertension Kidney disease Other Cancer Mother Heart disease Emphysema lung Other Osteoporosis Social History Social History Social History: Surrogate medical decision maker: Diane Gerard, daughter. Code status: Full code. Smoking status: Never smoker Second hand tobacco smoke exposure: No Alcohol intake: never Substance use: never Substance use type: does not use Do You Feel Safe in your Home?: Yes Lack of Transportation: No Lack of Food: Never True Current Housing: I Have Housing Concerned About Future Housing: No Difficulty Paying Gas/Electric Bills: No Difficulty Paying for Meds: No Currently Unemployed: No Education: High School Diploma/GED Difficulty w/ Childcare or Family Care: No Living arrangements: alone Occupation/Education: retired Spiritual care concerns: No Meds Home Medications and Allergies Home Medications Medication Instructions Recorded Confirmed Type alprazolam 1 mg tablet (Xanax) 1 mg PO HS 06/19/22 02/11/24 History atorvastatin 20 mg tablet 20 mg PO HS 06/19/22 02/11/24 History furosemide 20 mg tablet 20 mg PO QAM 06/19/22 02/11/24 History levothyroxine 75 mcg capsule 100 mcg PO DAILY 06/19/22 02/11/24 History loratadine 10 mg tablet 10 mg PO DAILY 06/19/22 02/11/24 History metoprolol succinate 25 mg 12.5 mg PO HS 06/19/22 02/11/24 History tablet,extended release 24 hr sildenafil (pulm.hypertension) 20 20 mg PO TID 06/19/22 02/11/24 History mg tablet esomeprazole magnesium 20 mg 20 mg PO DAILY 07/09/22 02/11/24 History capsule,delayed release (Nexium) flaxseed oil 5 ml miscellaneous BID 07/09/22 02/11/24 History montelukast 10 mg tablet 10 mg PO HS 07/09/22 02/11/24 History vitamins A,C,Y-drff-dnlqow 4,296 1 cap PO QAM AND QPM 07/09/22 02/11/24 History mcg-226 mg-90 mg capsule (PreserVision AREDS) cyanocobalamin (vitamin B-12) 1,000 mcg IM MONTHLY
[2024-02-11] MEDS: ceFAZolin 2 GM/D5W 50 ML 2 GM/50 ML BAG IVPB ×2 (07:36→20:12)
[2024-02-11] MEDS: VANCOMYCIN HCL 1,000 MG VIAL 500 MG TOPICAL (08:50)
[2024-02-11] MEDS: BUPIVACAINE/EPINEPHRINE 0.5% 10 ML VIAL 30 ML INFILTRATE (08:51)
--- NOTE | 2024-02-11 09:21 | P.OPB_ITS ---
Procedure Note - Brief Procedure Note - Brief Date of procedure: 02/11/24 failed back surgical syndrome Post-op diagnosis: Same Procedure performed: 1. T9 laminotomy for spinal cord stimulator placement 2. use of c-arm for fluoroscopy Surgeon: Irene Stafford MD Gambling Monitor: Derrell Anesthesia: GETA Findings: Stimulator placed to span bottom of T7 through top of T9. No issues with placement Estimated blood loss (mL): 25 Drains: No Packing: No Pathology: None sent Complications: None Condition: Stable Disposition: PACU
--- NOTE | 2024-02-11 09:27 | W.PM.PROC2 ---
Procedure Note - Detailed Date of Procedure 02/11/24 Pre-op Diagnosis failed back surgical syndrome Post-op Diagnosis Same Procedure Performed 1. T9 laminotomy for placement of spinal cord stimulator 2. Use of C-arm for fluoroscopy Surgeon Irene Stafford MD Chemistry Professor Derrell Anesthesia General Indications Ms. Villagran is an 83-year-old female with history of diabetes, hypertension, atrial fibrillation, in a previous L2-5 posterior decompression and fusion who has had ongoing low back pain since surgery without relief from conservative treatments. She recently had a spinal cord stimulation trial with 75% relief of her symptoms. She is neurologically intact. MRI lumbar spine shows multilevel degenerative changes with expected postoperative changes from her recent surgery. I did find a CTA from May on which I can see the hardware in her spine. There is haloing around the screws in L5, but there appears to be fusion posterior laterally along the screws. Therefore, she is a reasonable candidate for spinal cord stimulator, and I have offered T9 laminotomy for placement of paddle electrode. We discussed risks including bleeding, pain, infection, weakness, paralysis, spinal cord damage, failure to relieve symptoms, and anesthetic complications. She gave written informed consent to proceed. Description of Procedure The patient was brought to the OR where general anesthesia was induced. The patient was turned prone onto the OR table with Seamus frame. All pressure points were padded. C-arm was used to plan the level of the thoracic incision. A right gluteal incision was also planned for the generator site. The surgical site was prepped and draped in usual sterile fashion. Perioperative antibiotics were given. Local anesthesia was injected into the planned incisions. A 10-blade scalpel was used to open the right gluteal incision. A bovie was used to create a subcutaneous pocket inferiorly. The pocket was packed with a wet Raytec. Next, the thoracic incision was opened with the scalpel, and the soft tissue was dissected with the bovie. The laminae were exposed bilaterally at T9. This was confirmed with the C-arm. A laminotomy was performed at the inferior portion of T9 with the Leksell, high-speed drill, and kerrisons. No significant ligamentum flavum was noted at this level. The laminotomy opening was widened laterally. The paddle stimulator was then placed into the epidural space. Xrays confirmed appropriate positioning in line with the desired placement based on the trial. Anchors were placed into the leads which were attached to the muscle. The leads were tunneled to the gluteal incision. A final xray was obtained to ensure stable placement. The leads were connected to the generator which was then placed into the gluteal pocket. The generator was secured with a silk suture. All incisions were irrigated copiously. Hemostasis was ensured in the thoracic incision with the bipolar and Surgiflo. Stimulon beads were placed into both incisions. The fascia was closed with 0 vicryl. The dermis was closed with 2-0 and 3-0 vicryl. The dermis at the generator site was closed with 2-0 vicryl. The skin was closed in both incisions with 4-0 monocryl. Dermabond was then placed. The patient was returned supine, extubated, and transferred to PACU. Billing codes: 26401, 99615 Estimated Blood Loss 25 Drains No Packing No Pathology None sent Complications None Condition Stable Disposition PACU [facility] Billing Surgery - Charge Forward: Surgery Billing
[2024-02-11] MEDS: fentaNYL CITRATE INJ (*CRX) 100 MCG/2 ML VIAL 25 MCG IV PUSH ×5 (09:56→11:04)
[2024-02-11] MEDS: CYCLOBENZAPRINE HCL 5 MG TABLET PO (10:47)
[2024-02-11 11:14] LABS: Glucose Point of Care 153 mg/dl (65-105)
[2024-02-11] MEDS: oxyCODONE HCL (*CRX) 5 MG TAB IR PO (11:40)
[2024-02-11] MEDS: ACETAMINOPHEN 500 MG TABLET 1000 MG PO ×2 (12:29→20:12)
[2024-02-11] MEDS: SIMETHICONE 80 MG TAB.CHEW PO (13:59)
--- NOTE | 2024-02-11 16:01 | SUR.PHASEII ---
1545 CT SCAN COMPLETED
--- NOTE | 2024-02-11 16:35 | P.PNCROSS_ITS ---
Event Note Event Note Event Note: I was notified that the patient was having fairly severe lower abdominal pain a fter surgery despite receiving multiple pain medications. It is not uncommon for patients to have radiating abdominal pain after placement of a spinal cord stimulator. However, upon speaking with the patient, she indicated this actually started yesterday in the same area as she is feeling is now but that it was less intense yesterday. She otherwise denies new shortness of breath, nausea/vomiting, chest pain, etc. I specifically asked her this morning if she had otherwise been feeling well recently aside from her back pain, and she only informed me of a new possible diagnosis of atrial fibrillation for which her it infrastructure engineer had her on a Holter monitor until yesterday. Her daughter mentioned that she was found to have a AAA last year and was concerned that this could be the cause of her symptoms. Given that her pain was present yesterday (prior to surgery), her history, and her blood pressure into the 90s/60s during my assessment, I ordered a stat CTA abdomen/pelvis. This fortunately did not show any acute findings and stable AAA. While her imaging is reassuring, I will admit her for observation tonight for pain control. I will put in for an aggressive bowel regimen to see if this will help her abdominal pain. I may consider involving the hospitalist team if she is not improved tomorrow.
--- NOTE | 2024-02-11 17:35 | ADMGEN ---
This patient, Oumou Villagran, was admitted to Medical Room 249-01. Patient/family oriented to hospital policies and general routines including ID bracelet, bed and alarms, visiting hours, pain management, procedures, bathroom and other care routines, personal items, smoking policy, room service/diet, and visiting hours. Information on how to activate the Rapid Response Team has been discussed. Patient/Family are encouraged to report perceived risks to care and to ask questions if they do not understand what they are told or what they should do.
[2024-02-11 17:52] LABS: Hematocrit 30.4 % (37.0-47.0); Hemoglobin 9.1 g/dL (12.0-15.0); Mean Corpuscular HGB Conc 29.9 g/dl (32-36); Mean Corpuscular Hemoglobin 27.1 pg (26-34); Mean Corpuscular Volume 90.5 fl (80-100); Mean Platelet Volume 10.8 fl (7.4-10.4); Platelet Count Result 148 k/mm3 (150-375); Red Blood Count 3.36 M/mm3 (4.2-5.4); Red Cell Distribution Width 17.4 % (11.5-14.5); White Blood Count 5.9 K/mm3 (4.5-10.0)
[2024-02-11 18:03] LABS: Alanine Aminotransferase 23 U/L (6-35); Albumin Level 4.2 g/dL (3.5-5.1); Alkaline Phosphatase 79 U/L (38-126); Anion Gap 11 mmol/L (4-12); Aspartate Amino Transferase 33 U/L (14-36); Bilirubin,Total 0.8 mg/dL (0.2-1.3); Blood Urea Nitrogen 16 mg/dL (7-17); Calcium 8.7 mg/dL (8.4-10.2); Carbon Dioxide 25 mmol/L (22-30); Chloride 105 mmol/L (98-107); Estimated CRCL calculation 34 ml/min; Estimated Glomerular Filt Rate 47; Glucose 180 mg/dL (65-110); Potassium 4.5 mmol/L (3.4-5.0); Sodium 141 mmol/L (137-145)
[2024-02-11] MEDS: oxyCODONE HCL (*CRX) 5 MG TAB IR 10 MG PO (18:13)
[2024-02-11] MEDS: SENNA/DOCUSATE SODIUM TABLET 1 TAB PO (18:13)
[2024-02-11] MEDS: ATORVASTATIN 20 MG TABLET PO (20:12)
[2024-02-11] MEDS: METOPROLOL SUCCINATE EXT REL 12.5 MG TABCR PO (20:13)
[2024-02-11] MEDS: MONTELUKAST SODIUM 10 MG TABLET PO (20:13)
[2024-02-11] MEDS: ALPRAZolam (*CRX) 0.5 MG TABLET 1 MG PO (20:13)
[2024-02-12 01:25] VITALS: BP 140/98; PULSE 100; RESP 16; TEMP 36.7; O2SAT 96
[2024-02-12] MEDS: ACETAMINOPHEN 500 MG TABLET 1000 MG PO ×3 (01:41→13:14)
[2024-02-12] MEDS: ceFAZolin 2 GM/D5W 50 ML 2 GM/50 ML BAG IVPB ×2 (02:54→11:37)
[2024-02-12] MEDS: LINACLOTIDE 72 MCG CAPSULE PO (05:55)
[2024-02-12] MEDS: LEVOTHYROXINE SODIUM 100 MCG TABLET PO (05:55)
[2024-02-12 06:36] VITALS: BP 116/70; PULSE 100; RESP 16; TEMP 36.7; O2SAT 99
[2024-02-12 08:00] VITALS: BP 104/66; PULSE 117; RESP 16; TEMP 36.4; O2SAT 94
[2024-02-12 08:42] LABS: Glucose Point of Care 143 mg/dl (65-105)
[2024-02-12] MEDS: lisinopriL 5 MG TABLET PO (09:56)
[2024-02-12] MEDS: PANTOPRAZOLE 40 MG TABLET PO (09:56)
[2024-02-12] MEDS: DULoxetine HCL 60 MG CAPSULE.DR PO (09:56)
[2024-02-12] MEDS: DULoxetine HCL 30 MG CAPSULE.DR PO (09:56)
[2024-02-12] MEDS: FUROSEMIDE 20 MG TABLET PO (09:56)
[2024-02-12] MEDS: BISACODYL 10 MG SUPPOSITORY RECTAL (09:56)
[2024-02-12] MEDS: SENNA/DOCUSATE SODIUM TABLET 1 TAB PO (09:56)
[2024-02-12] MEDS: LORATADINE 10 MG TABLET PO (09:56)
[2024-02-12] MEDS: polyethylene glycoL 3350 17 GM POWD.PACK PO (09:56)
[2024-02-12 10:00] VITALS: O2SAT 91
[2024-02-12 11:58] LABS: Glucose Point of Care 158 mg/dl (65-105)
[2024-02-12 12:00] VITALS: BP 108/57; PULSE 113; RESP 16; O2SAT 97
--- NOTE | 2024-02-12 12:14 | WPDNEUROSGPN ---
Progress Note: A&P Assessment and Plan (1) Status post insertion of spinal cord stimulator: Code(s): Z96.89 - Presence of other specified functional implants Status: Acute (2) Abdominal pain: Code(s): R10.9 - Unspecified abdominal pain Status: Acute Plan Fortunately, her CTA abdomen/pelvis was reassuring with stable aortic aneurysm and no acute processes/no bowel obstruction. Her labs are stable. She is ambulating and tolerating PO intake. We discussed staying in the hospital to wait for a BM vs discharging home. She would feel more comfortable waiting to have a BM at home and would like to go home this afternoon. She has follow up with me in clinic in 2 weeks. We again discussed wound care and activity precautions. Subjective Date/time seen: 02/12/24 12:14 Interval history: Still having abdominal pain today. Has not had BM since 02/05. She denies nausea/vomiting or other symptoms. She has minimal back pain. She ambulated this morning and is tolerating oral intake. Review of Systems Review of Systems: All systems reviewed & are unremarkable except as noted in HPI and below Exam Narrative: AOx4 Full strength in legs Sensation intact Incisions c/d/i Objective Data Vital Signs Vital Signs: Vital Signs - 24 hr 02/11/24 12:15 02/11/24 13:45 02/11/24 14:15 Temperature 97.7 F Pulse Rate 104 H 91 106 H Respiratory Rate 18 18 16 Blood Pressure 117/70 102/78 90/61 L Pulse Oximetry Oxygen Delivery Oxygen Flow Rate 02/11/24 14:45 02/11/24 12:45 02/11/24 13:15 Temperature Pulse Rate 97 98 104 H Respiratory Rate 16 18 18 Blood Pressure 103/76 105/73 124/47 L Pulse Oximetry Oxygen Delivery Oxygen Flow Rate 02/11/24 15:15 02/11/24 15:50 02/11/24 16:15 Temperature Pulse Rate 113 H 109 H 101 H Respiratory Rate 16 18 16 Blood Pressure 96/68 L 121/60 113/56 L Pulse Oximetry Oxygen Delivery Oxygen Flow Rate 02/11/24 16:45 02/11/24 17:35 02/11/24 17:50 Temperature 97.6 F 97.7 F Pulse Rate 114 H 107 H 99 Respiratory Rate 16 14 18 Blood Pressure 109/68 132/77 140/79 Pulse Oximetry 96 99 Oxygen Delivery Oxygen Flow Rate 02/11/24 17:35 02/11/24 17:45 02/11/24 18:20 Temperature 97.6 F Pulse Rate 110 H Respiratory Rate 17 Blood Pressure 123/97 H Pulse Oximetry 88 L 97 99 Oxygen Delivery Room Air Nasal Cannula Oxygen Flow Rate 2 02/11/24 19:28 02/11/24 20:13 02/11/24 20:05 Temperature 98.0 F Pulse Rate 98 86 86 Respiratory Rate 16 16 Blood Pressure 129/90 Pulse Oximetry 98 93 Oxygen Delivery Nasal Cannula Oxygen Flow Rate 2 02/12/24 01:25 02/12/24 06:36 02/12/24 08:00 Temperature 98.0 F 98.0 F 97.5 F L Pulse Rate 100 100 117 H Respiratory Rate 16 16 16 Blood Pressure 140/98 H 116/70 104/66 Pulse Oximetry 96 99 94 Oxygen Delivery Oxygen Flow Rate 02/12/24 09:23 02/12/24 10:51 02/12/24 12:00 Temperature Pulse Rate 113 H Respiratory Rate 16 Blood Pressure 108/57 L Pulse Oximetry 97 Oxygen Delivery Room Air Room Air Oxygen Flow Rate Intake/Output Intake/Output: Intake & Output 02/09/24 02/10/24 02/11/24 02/12/24 23:59 23:59 23:59 23:59 Intake Total 650 640 Balance 650 640 Meds/Results Medications: Active Medications Generic Name Dose Route Start Last Admin Trade Name Freq PRN Reason Stop Dose Admin Acetaminophen 1,000 mg 02/11/24 19:00 02/12/24 06:04 Acetaminophen 500 Mg Tablet PO 1,000 mg Q6H ILYA Administration Al Hydrox/Mg Hydrox/Simethicone 20 ml 02/11/24 16:28 Mag Hydrox/Al Hydrox/Simeth 30 Ml Udc PO Q4H PRN Indigestion/Heartburn Albuterol 2 puff 02/12/24 09:47 Albuterol Sulfate (*Sp) Aerosol 1 Puff INHALATION Q6HRT PRN Wheezing Alprazolam 1 mg 02/11/24 21:00 02/11/24 20:13 Alprazolam (*Crx) 0.5 Mg Tablet PO 1 mg HS ILYA Administration Atorvastatin Calcium 20 mg 02/11/24 21:00
--- NOTE | 2024-02-12 13:09 | WPDANESPN ---
Anes - Prog Note Post-Op Date/Time: 02/12/24 13:09 Cardiovascular status: normal Respiratory status: normal Airway patency: baseline Mental status: baseline Post-Op hydration status: normal Vital Signs: Last Vital Signs Temp 36.4 C L 02/12/24 08:00 Pulse 113 H 02/12/24 12:00 Resp 16 02/12/24 12:00 BP 108/57 L 02/12/24 12:00 Pulse Ox 97 02/12/24 12:00 O2 Del Method Room Air 02/12/24 10:51 O2 Flow Rate 2 02/11/24 20:05 Pain Score (VAS): 09/20 I/O: Intake & Output 02/11/24 02/12/24 02/12/24 23:59 07:59 15:59 Intake Total 250 400 240 Balance 250 400 240 Laboratory Tests 02/11/24 17:46 02/11/24 17:46 02/11/24 02/12/24 02/12/24 17:46 08:39 11:37 WBC 5.9 RBC 3.36 L Hgb 9.1 L Hct 30.4 L MCV 90.5 MCH 27.1 MCHC 29.9 L RDW 17.4 H Plt Count 148 L MPV 10.8 H Sodium 141 Potassium 4.5 Chloride 105 Carbon Dioxide 25 Anion Gap 11 BUN 16 Creatinine 1.10 H Estim Creat Clear Calc 34 Estimated GFR 47 L Glucose 180 H POC Capillary Glucose 143 H 158 H Calcium 8.7 Total Bilirubin 0.8 AST 33 ALT 23 Alkaline Phosphatase 79 Total Protein 7.0 Albumin 4.2 Post-procedural complaints: none Patient Feedback: Patient satisfied with anesthetic care.
--- NOTE | 2024-02-18 20:55 | PM.DS ---
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 She had fairly significant abdominal pain after surgery which she indicated she had to a lesser degree the day prior. She had no other associated symptoms. Due to a known AAA, we obtained a stat CT abdomen which showed stable AAA and no other acute findings. She was admitted overnight for pain control. She indicated she had not had a BM in 6 days. She received multiple medications to help with BM. She ultimately elected to return home on POD1. Her back pain was controlled. She was tolerating PO. She was ambulating well. Time Spent with Patient Time attestation: Total time spent providing and/or coordinating discharge services: Discharge Plan Discharge Consulting providers: Kiko Jay; Adebayo Machado; Nigel Vargas; Maureen New Discharging Clinician: Irene Stafford Patient Disposition: Home, Self-Care Activity: other - see discharge instructions Diet: as tolerated Discharge Instructions: INSTRUCTIONS AFTER YOUR SPINAL CORD STIMULATOR ? Your incision is closed with skin glue. This will typically peel off on its own in 10-14 days. ? You may shower and get your incision wet with soap and water starting on post-operative day 2 (Friday). Do not submerge the incision under water (like in a bathtub or swimming pool) for 6 weeks after surgery. Never apply ointments or lotions to the incision. ? The incision should be checked daily. Notify the office if there is drainage, redness, or if you have fever with a temperature of over 101 degrees. ? Your stimulator has been programmed to a low setting. This will be adjusted at your first post-op appointment with Dr. Stafford. Please call the [facility] with any questions about the settings. ? You are encouraged to walk as much as comfortable, with assistance as needed. For example, it may be beneficial to walk short distances hourly during the waking hours and gradually increase walking during your recovery period. Fatigue can be common. ? Avoid any bending, heavy lifting, or twisting movements. ? You have an [id number]-[id number]-pound lift restriction until further advised by your physician (A gallon of milk weighs eight pounds). ? Make frequent position changes, avoiding long periods of sitting. Try not to sit more than 60 minutes at a time. ? No housework, especially vacuuming, making beds, or doing laundry until seen in the office. ? You may walk stairs carefully. ? The physician may order pain medication and/or muscle relaxers. As time goes by, you should require less of these. Always take your medication as ordered, and only if needed. If you take more than prescribed, it will not be refilled early. If you feel you require narcotic medication refill, kindly give the office a 72-hour notice. No refills are given over the weekend. ? Try using Tylenol 1000mg as the first-line medication for pain. You may take this every 6 hours. If your pain is not controlled with Tylenol first, you may use narcotic pain medication. ? Resume your usual diet. Constipation is a common problem postop. You may use any over the counter laxative, or stool softener. Always follow the bottle directions. ? Use of nicotine products should be stopped completely. Smoking can slow the healing process significantly. It can also increase the chance for developing postop pneumonias and other complications. Please avoid use of all nicotine products for at
== END 2024-02-12 13:33 | disposition home or self-care (01) ==
LOC: ANH2MED 17:11
PROVIDERS: Admitting Provider Neurological Surgery; PCP Family Medicine; Visit Provider Neurological Surgery
PROC: (CPT 63685; principal; 2024-02-11 07:30)
DX: M96.1 Postlaminectomy syndrome, not elsewhere classified (principal); R10.30 Lower abdominal pain, unspecified; D64.9 Anemia, unspecified; I71.23 Aneurysm of the descending thoracic aorta, without rupture; I10 Essential (primary) hypertension; J45.909 Unspecified asthma, uncomplicated; E03.9 Hypothyroidism, unspecified; E11.9 Type 2 diabetes mellitus without complications; G47.33 Obstructive sleep apnea (adult) (pediatric); M81.0 Age-related osteoporosis without current pathological fracture; Z98.1 Arthrodesis status; Z79.51 Long term (current) use of inhaled steroids; Z79.85 Long-term (current) use of injectable non-insulin antidiabetic drugs
CPT/HCPCS: 63685; 63655; 36415; 74174; 80053; 82948; 85027; 97161; 97165; 99199; A9270; C1778; C1820; G0378; J0330; J0690; J1100; J2371; J2405; J2704; J3010; J3370; J7120; Q9967

== ENCOUNTER 2024-03-25 15:59 | Inpatient (IN) | payer MEDICARE, SELFPAY ==
[2024-03-25] VITALS (16 sets, daily range): BP systolic 96–144; BP diastolic 61–90; PULSE 68–136; RESP 15–24; TEMP 36.2–36.6; O2SAT 94–100; BMI 36.3
--- NOTE | ~2024-03-25 | XR_ITS ---
EXAMINATION: XR chest 1V portable 03/25/2024 16:42 INDICATION: Atrial fibrillation PROCEDURE: AP portable chest COMPARISON: 06/07/2023 FINDINGS: The lungs are clear. The cardiomediastinal silhouette is within normal limits. There are no pleural effusions. There is no pneumothorax suspected. IMPRESSION: 1: NO ACUTE CARDIOPULMONARY DISEASE. Reviewed, dictated and finalized at location B.
--- NOTE | ~2024-03-25 | US_ITS ---
EXAMINATION: US venous doppler LE DATE: 03/26/2024 14:44 INDICATION: Lower limb pain. TECHNIQUE: Grayscale ultrasound images without and with compression and Doppler ultrasound images of the bilateral lower extremity veins were obtained. COMPARISON: None. FINDINGS: The visualized portions of right common femoral vein, profunda (deep) femoral vein, femoral vein, pop liteal vein, peroneal veins, posterior tibial veins, and greater saphenous vein outflow are patent. T here is a small right Joshi's cyst. The visualized portions of left common femoral vein, profunda femoral vein, femoral vein, popliteal v ein, peroneal veins, posterior tibial veins, and greater saphenous vein outflow are patent. IMPRESSION: 1. No deep venous thrombosis. 2. Small right Joshi's cyst. Reviewed, dictated and finalized at location A.
--- NOTE | ~2024-03-25 | CT_ITS ---
EXAMINATION: CT abdomen pelvis w con DATE: 03/26/2024 08:41 INDICATION: Portal venous gas in the liver. Tachycardia. TECHNIQUE: Computed tomography (CT) of the abdomen and pelvis was performed with 100 mL Omnipaque 350 intravenous contrast. Automated exposure control and iterative reconstruction technique were employe d. The dose-length product was 947.43 mGy-cm. COMPARISON: CT abdomen and pelvis 02/11/2024, chest CT 03/25/2024 FINDINGS: The visualized portions of the lung bases demonstrate mild atelectasis and mild chronic neptali g disease. No pleural effusion. Cardiomegaly is noted. There are coronary artery calcifications. Ther e is a trace pericardial effusion. The liver, gallbladder, spleen, pancreas, and adrenal glands are n ormal. There is cortical thinning of the kidneys. There is a 11 mm cyst in left kidney. There is calc ified atherosclerosis of the aorta and many of the other arteries. There is diverticulosis of the col on without evidence of diverticulitis. The appendix is normal. There are no pathologically enlarged l ymph nodes. There is no free intraperitoneal fluid. Epidural electrodes are noted. There is lumbar le voscoliosis and severe spondylosis. There are changes of posterior fusion procedure from L2 to L5. Th ere is a chronic compression fracture of L1. IMPRESSION: 1. Resolution of the portal venous gas. Reviewed, dictated and finalized at location A.
--- NOTE | ~2024-03-25 | CT_ITS ---
EXAMINATION: CTA chest PE protocol DATE: 03/25/2024 23:33 INDICATION: Persistent tachycardia. TECHNIQUE: Computed tomography (CT) pulmonary angiogram of the chest was performed with 100 mL Omnipa que-350 intravenous contrast. Additional 3D reconstructions utilizing coronal maximum intensity proje ction (MIP) were performed. Automated exposure control and iterative reconstruction technique were em ployed. The dose-length product was 405.69 mGy-cm. COMPARISON: None FINDINGS: No pulmonary embolism. Mild dependent and bibasilar atelectasis. No pneumonia, pulmonary edema, pleur al effusion or pneumothorax. Borderline heart size. Atherosclerotic coronary artery calcifications. N o pericardial effusion. Ectatic thoracic aorta measuring up to 4.1 cm the ascending thoracic aorta, 4 .0 cm the proximal descending thoracic aorta and 3.6 cm at the distal descending thoracic aorta. No p athologically enlarged thoracic lymphadenopathy. There is branching gas scattered throughout the live r which appears primarily peripheral and with no evident gas within the gallbladder or common bile du ct and would favor portal venous gas over pneumobilia. Visualized upper abdomen is otherwise unremark able. Mild thoracic spondylosis. Spinal stimulator leads in the posterior central canal with distal t ip at the level of T8. IMPRESSION: 1. Nonspecific portal venous gas in the liver which raises concern for transgression of the gastric o r bowel mucosa which could be due to ischemia, peptic ulcer disease, inflammatory bowel disease, infe ction, malignancy or bowel obstruction. Correlate clinically and consider further evaluation with CT of the abdomen and pelvis. Findings were discussed with Claudia Carr, the nurse caring for the grace ent, at 12:03 AM. 2. No pulmonary embolism. 3. Borderline heart size and diffusely ectatic thoracic aorta. Reviewed, dictated and finalized at location A. IMPRESSION: 1. Nonspecific portal venous gas in the liver which raises concern for transgre ssion of the gastric or bowel mucosa which could be due to ischemia, peptic ulc er disease, inflammatory bowel disease, infection, malignancy or bowel obstruct ion. Correlate clinically and consider further evaluation with CT of the abdome n and pelvis. Findings were discussed with Claudia Carr, the nurse caring for the patient, at 12:03 AM. 2. No pulmonary embolism. 3. Borderline heart size and diffusely ectatic thoracic aorta.
--- NOTE | 2024-03-25 16:04 | ECG_ITS ---
Test Date: 2024-03-25 16:10:30 Measurements Intervals [place] Rate: 133 P: 0 TN: 0 QRS: -15 QRSD: 81 T: 60 QT: 302 QTc: 449 Interpretive Statements BASELINE ARTIFACT, POOR QUALITY ECG SUPRAVENTRICULAR TACHYCARDIA, PROBABLY SINUS TACHYCARDIA ABNORMAL RHYTHM ECG No previous ECG available for comparison Electronically Signed On 03-26-2024 14:49:40 CDT by Jeff Silva M.D.
--- NOTE | 2024-03-25 16:15 | ED.ARRPALP ---
HPI - Arrhythmia/Palpitations General Chief Complaint: Arrhythmia/Palpitations Stated Complaint: afib rvr Time Seen by Provider: 03/25/24 16:00 History of Present Illness HPI narrative: 83-year-old female presenting to the emergency department for evaluation for rapid heart rate. Patient does have a prior history of AFib and is on metoprolol and apixaban. Patient did have follow-up with her primary care physician today for their 1st point and she was found have a heart rate in the 140s. Patient did have follow-up with Cardiology few days ago was found to be in normal sinus rhythm but does have history of AFib with RVR. Patient states she has been Related Data Home Medications Medication Instructions Recorded Confirmed alprazolam 1 mg tablet (Xanax) 1 mg PO HS 06/19/22 03/25/24 atorvastatin 20 mg tablet 20 mg PO HS 06/19/22 03/25/24 furosemide 20 mg tablet 20 mg PO QAM 06/19/22 03/25/24 levothyroxine 75 mcg capsule 100 mcg PO DAILY 06/19/22 03/25/24 loratadine 10 mg tablet 10 mg PO DAILY 06/19/22 03/25/24 metoprolol succinate 25 mg 12.5 mg PO HS 06/19/22 03/25/24 tablet,extended release 24 hr sildenafil (pulm.hypertension) 20 20 mg PO TID 06/19/22 03/25/24 mg tablet flaxseed oil 5 ml miscellaneous BID 07/09/22 03/25/24 montelukast 10 mg tablet 10 mg PO HS 07/09/22 03/25/24 vitamins A,C,I-feup-kubwkq 4,296 1 cap PO QAM AND QPM 07/09/22 03/25/24 mcg-226 mg-90 mg capsule (PreserVision AREDS) cyanocobalamin (vitamin B-12) 1,000 mcg IM MONTHLY 06/07/23 03/25/24 1,000 mcg/mL injection solution albuterol 90 mcg/actuation aerosol 90 mcg inhalation QID PRN Wheezing 10/03/23 03/25/24 inhaler lisinopril 5 mg tablet 5 mg PO DAILY 10/03/23 03/25/24 linaclotide 72 mcg capsule 72 mcg PO DAILY 12/25/23 03/25/24 (Linzess) semaglutide 0.25 mg or 0.5 mg (2 0.25 mg subcut WEEKLY 12/25/23 03/25/24 mg/1.5 mL) subcutaneous pen injector duloxetine 30 mg capsule,delayed 30 mg PO DAILY 01/29/24 03/25/24 release duloxetine 60 mg capsule,delayed 60 mg PO DAILY 01/29/24 03/25/24 release apixaban 5 mg tablet (Eliquis) 5 mg PO BID 03/25/24 03/25/24 esomeprazole magnesium 20 mg 20 mg PO DAILY 03/25/24 03/25/24 capsule,delayed release (Nexium) Allergies Allergy/AdvReac Type Severity Reaction Status Date / Time venom-wasp Allergy Severe Anaphylactic Verified 03/25/24 14:27 Shock Review of Systems Review of Systems: All systems reviewed & are unremarkable except as noted in HPI and below PMFSH Past Medical History Medical History Acute on chronic anemia Aneurysm of descending thoracic aorta Measuring 3.3 cm as of 06/07/2023. Arthritis Asthma Hypertension Hypothyroidism Migraine Obstructive sleep apnea on CPAP Osteoporosis Type 2 diabetes mellitus Surgical History Surgical History History of cardiac catheterization (12/2019) Patent coronary arteries with normal LV function. History of left knee replacement History of lumbar spinal fusion (09/2022) Per Dr. Owens. History of partial hysterectomy History of right knee joint replacement Family History Family History Father Alcoholism Heart disease Asthma Emphysema lung Sibling Diabetes mellitus Alcoholism Heart disease Cancer Hypertension Cerebrovascular accident Emphysema lung Migraines Son Cancer Hypertension Kidney disease Other Cancer Mother Heart disease Emphysema lung Other Osteoporosis Social History Social History Social History: Surrogate medical decision maker: Diane Gerard, daughter. Code status: Full code. Smoking status: Never smoker Second hand tobacco smoke exposure: No Alcohol intake: never Substance use: never Substance use type: does not use Do You Feel Safe in yo
[2024-03-25] MEDS: SODIUM CHLORIDE 0.9% IV 1,000 ML 500 ML IV CONT (16:21)
[2024-03-25] MEDS: METOPROLOL TARTRATE INJ 5 MG/5 ML VIAL IV PUSH (16:21)
--- NOTE | 2024-03-25 16:25 | ECG_ITS ---
Test Date: 2024-03-25 17:37:02 Measurements Intervals [place] Rate: 78 P: 185 [place]: 176 QRS: 3 QRSD: 86 T: 90 QT: 354 QTc: 406 Interpretive Statements ATRIAL FIBRILLATION WITH CONTROLLED VENTRICULAR RESPONSE NONSPECIFIC T-WAVE ABNORMALITY ABNORMAL ECG Compared to ECG 03/25/2024 16:10:30 CURRENT ECG IS OF BETTER QUALITY HEART RATE REDUCED PATIENT IS IN ATRIAL FIBRILLATION Electronically Signed On 03-26-2024 14:52:02 CDT by Jeff Silva M.D.
[2024-03-25 16:32] LABS: Basophils Percent Auto 0.4 % (0.2-1.2); Eosinophils Absolute Auto 0.1 K/mm3 (0-0.3); Eosinophils Percent Auto 2.9 % (0-4.4); Hematocrit 35.5 % (37.0-47.0); Hemoglobin 10.4 g/dL (12.0-15.0); Immature Granulocyte Absolute 0.01 K/mm3 (0.00-0.031); Immature Granulocyte Percent A 0.2 % (0-0.5); Lymphocytes Absolute Auto 1.85 K/mm3 (0.9-3.2); Lymphocytes Percent Auto 38.9 % (18.3-44.2); Mean Corpuscular HGB Conc 29.3 g/dl (32-36); Mean Corpuscular Hemoglobin 27.1 pg (26-34); Mean Corpuscular Volume 92.4 fl (80-100); Mean Platelet Volume 9.8 fl (7.4-10.4); Monocytes Absolute Auto 0.5 K/mm3 (0.1-0.6); Monocytes Percent Auto 10.5 % (2.6-8.5); Neutrophils Absolute Auto 2.2 K/mm3 (1.3-6.7); Neutrophils Percent Auto 47.1 % (45.5-73.1); Platelet Count Result 184 k/mm3 (150-375); Red Blood Count 3.84 M/mm3 (4.2-5.4); Red Cell Distribution Width 18.5 % (11.5-14.5); White Blood Count 4.8 K/mm3 (4.5-10.0)
[2024-03-25 16:43] LABS: INR 1.3; Prothrombin Time 16.7 Seconds (11.1-14.7)
[2024-03-25 16:45] LABS: Alanine Aminotransferase 13 U/L (6-35); Albumin Level 4.3 g/dL (3.5-5.1); Alkaline Phosphatase 88 U/L (38-126); Anion Gap 13 mmol/L (4-12); Aspartate Amino Transferase 22 U/L (14-36); Bilirubin,Total 0.6 mg/dL (0.2-1.3); Blood Urea Nitrogen 12 mg/dL (7-17); Calcium 9.1 mg/dL (8.4-10.2); Carbon Dioxide 28 mmol/L (22-30); Chloride 99 mmol/L (98-107); Estimated CRCL calculation 36 ml/min; Estimated Glomerular Filt Rate 53; Glucose 113 mg/dL (65-110); Potassium 3.6 mmol/L (3.4-5.0); Sodium 140 mmol/L (137-145)
[2024-03-25 16:48] LABS: Magnesium 1.3 mg/dL (1.6-2.3)
[2024-03-25 16:51] LABS: Hypochromasia 1+; Ovalocytes 1+; Platelet Estimate Adequate (Adequate); Schistocytes None Seen
[2024-03-25] MEDS: dilTIAZem HCl INJ 25 MG/5 ML VIAL 10 MG IV PUSH ×2 (17:08→20:40)
[2024-03-25] MEDS: MAGNESIUM SULF 2 GM/WATER 50ML 2 GM/50 ML BAG IVPB (17:48)
--- NOTE | 2024-03-25 18:00 | PC.NURSE ---
This patient, Oumou Villagran, was admitted to IMU Room 205-01. Patient/family oriented to hospital policies and general routines including ID bracelet, bed and alarms, visiting hours, pain management, procedures, bathroom and other care routines, personal items, smoking policy, room service/diet, and visiting hours. Information on how to activate the Rapid Response Team has been discussed. Patient/Family are encouraged to report perceived risks to care and to ask questions if they do not understand what they are told or what they should do.
--- NOTE | 2024-03-25 18:59 | PM.IMHP ---
H&P: HPI History of Present Illness Date/Time: 03/25/24 18:59 Chief Complaint: Rapid Heart Rate Narrative: 83 y/o F presents here with rapid heart rate with PMH of atrial fibrillation (persistent), anemia, aneurysm of the descending thoracic aorta, asthma, hypertension, hypothyroidism, RAVINDRA on CPAP, and diabetes. The patient presents here from a local urgent care for further evaluation of a rapid heart rate. Patient had her first visit to establish care with a new PCP. At this visit she reported feeling palpitations and that she has new lower extremity edema for the past month. Patient was diagnosed with atrial fibrillation in May. Patient then followed up with her test engineering technician ([facility]) this past Friday. At this appointment she was started on Eliquis and scheduled for a cardioversion due to persistent AFib. Heart rate upon arrival was 136. Patient endorses intermittent dizziness and shortness of breath. Shortness of breath worsens with exertion and is alleviated with rest. Denies associated syncope, diaphoresis, jaw pain, or nausea/vomiting. Patient did have loose stool this morning, on Linzess due to chronic constipation and reports hx of irregular BMs. Initial VS at presentation: 97.6? F, HR 136, RR 24, 144/79, and 98% on RA. ED workup showed: No leukocytosis, hemoglobin 10.4 (previously 9.1 on 02/11/2024), INR 1.3, PT 16.7, PTT 31, no significant electrolyte derangements, creatinine 1.0 and GFR 53, magnesium 1.3 (repleted in ED). Review of Systems Review of Systems: All systems reviewed & are unremarkable except as noted in HPI and below [facility] Past Medical History Medical History (Updated 03/25/24 @ 21:05 by Eleni Burns, REGINA) Anemia Aneurysm of descending thoracic aorta Measuring 3.3 cm as of 06/07/2023. Anxiety Arthritis Asthma Atrial fibrillation, persistent GERD (gastroesophageal reflux disease) Hypertension Hypothyroidism Migraine Obstructive sleep apnea on CPAP Osteoporosis Scoliosis Type 2 diabetes mellitus Surgical History Surgical History (Updated 03/25/24 @ 19:05 by lEeni Burns, REGINA) History of cardiac catheterization (12/2019) Patent coronary arteries with normal LV function. History of left knee replacement History of lumbar spinal fusion (09/2022) Per Dr. Owens. History of partial hysterectomy History of right knee joint replacement Status post insertion of spinal cord stimulator Family History Family History Father Alcoholism Heart disease Asthma Emphysema lung Sibling Diabetes mellitus Alcoholism Heart disease Cancer Hypertension Cerebrovascular accident Emphysema lung Migraines Son Cancer Hypertension Kidney disease Other Cancer Mother Heart disease Emphysema lung Other Osteoporosis Social History Social History Social History: Surrogate medical decision maker: Diane Gerard, daughter. Code status: Full code. Smoking status: Never smoker Second hand tobacco smoke exposure: No Alcohol intake: never Substance use: never Substance use type: does not use Do You Feel Safe in your Home?: Yes Lack of Transportation: No Lack of Food: Never True Current Housing: I Have Housing Concerned About Future Housing: No Difficulty Paying Gas/Electric Bills: No Difficulty Paying for Meds: No Currently Unemployed: No Education: Decline to Answer Difficulty w/ Childcare or Family Care: No Living arrangements: alone Occupation/Education: retired Spiritual care concerns: No Meds Home Medications and Allergies Home Medications Medication Instructions Recorded Confirmed Type alprazolam 1 mg tablet (Xanax) 1 mg PO HS 06/19/22 03/25/24 History atorvastatin 20 mg tablet 20 mg PO HS 06/19/22 03/25/24 History furosemide 20 mg tablet 20 mg PO QAM 06/19/22 03/25/24 History levothy
[2024-03-25 20:12] LABS: Glucose Point of Care 179 mg/dl (65-105)
[2024-03-25] MEDS: MONTELUKAST SODIUM 10 MG TABLET PO (20:40)
[2024-03-25] MEDS: ALPRAZolam (*CRX) 0.5 MG TABLET 1 MG PO (20:40)
[2024-03-25] MEDS: APIXABAN 5 MG TABLET PO (20:40)
[2024-03-25] MEDS: dilTIAZem HCL 30 MG TABLET PO (20:40)
[2024-03-25] MEDS: ATORVASTATIN 20 MG TABLET PO (20:40)
[2024-03-25 21:21] LABS: D Dimer 1.81 ug/mL (<0.48)
--- NOTE | 2024-03-25 23:36 | PC.NURSE ---
HR continues to sustain in the 120s. Grant SANCHEZ made aware with new orders to start cardizem drip @ 5mg, administer an additonal cardizem dose of 10mg IVP and hold PO cardizem medication.
[2024-03-26] VITALS (23 sets, daily range): BP systolic 94–120; BP diastolic 47–74; PULSE 95–130; RESP 16–22; TEMP 36.3–36.5; O2SAT 93–98
--- NOTE | 2024-03-26 | ECHO_ITS ---
Patient Info Name: Oumou Villagran Age: 83 years : 1940 Gender: Female Ht: 60 in Wt: 183 lbs BSA: 1.92 m2 HR: 105 bpm BP: 94 / 57 mmHg Heart Rhythm: Atrial Fibrillation Technical Quality: Good Exam Date: 03/26/2024 10:52 AM Exam Location: Echo Lab Patient Status: Inpatient Admit Date: 03/26/2024 Staff Ordering Physician: Eleni Burns APRN Research Project Manager: Monica Douglass RDCS Attending Provider: Mike Dubon MD Referring Physician: Grant PASTRANA; Exam Type: CA echo doppler color flow Study Info Indications - tachycardia, new onset a fib Complete two-dimensional, color flow and Doppler transthoracic echocardiogram is performed. Summary 1. Complete two-dimensional, color flow and Doppler transthoracic echocardiogram is performed. 2. Normal left ventricular size with mild concentric hypertrophy and preserved systolic function. 3. Severe biatrial enlargement left greater than right. 4. Mild mitral regurgitation. 5. Trivial aortic regurgitation. 6. Moderate tricuspid regurgitation with evidence of at least moderate pulmonary hypertension. 7. Atrial fibrillation. Left Ventricle Left ventricular chamber dimension is normal. Left ventricular systolic function is normal, estimated at 50-55%. There is mild concentric increased left ventricular wall thickness. The left ventricular diastolic function is indeterminate. Right Ventricle Right ventricular chamber dimension is normal. Left Atria Left atrial chamber dimension is severely enlarged. Right Atria Right atrial chamber dimension is moderately enlarged. Aortic Valve The aortic valve is normal. There is trace aortic valve regurgitation. Pulmonic Valve The pulmonic valve is normal. Mitral Valve The mitral valve has normal leaflets. There is mild mitral valve regurgitation. Tricuspid Valve The tricuspid valve leaflets are normal. There is moderate tricuspid valve regurgitation. Moderate pulmonary hypertension, estimated pulmonary arterial systolic pressure is 50 mmHg. Pericardium/Pleural The pericardium appears normal. Aorta The aortic root size at the sinus of Valsalva is normal. Left Ventricular Outflow Tract Name Value Normal LVOT 2D LVOT Diameter 2.0 cm LVOT Doppler LVOT Peak Gradient 5 mmHg LVOT Mean Gradient 2 mmHg LVOT VTI 19 cm LVOT VTI/AV VTI Ratio 0.5 LVOT Stroke Volume 60 ml LVOT CO 7.1 l/min LVOT CI 3.7 l/min/m2 Pulmonic Valve Name Value Normal PV Doppler PV Peak Gradient 5 mmHg Mitral Valve Name Value Normal MV Doppler
[2024-03-26] MEDS: dilTIAZem 100 MG/100 ML 100 MG/100 ML BAG IV CONT (00:06)
[2024-03-26] MEDS: dilTIAZem HCl INJ 25 MG/5 ML VIAL 10 MG IV PUSH (00:06)
[2024-03-26] MEDS: SILDENAFIL CITRATE 20 MG TABLET PO ×3 (00:09→20:18)
[2024-03-26 02:46] LABS: Erythrocyte Sedimentation Rate 32 mm/hr (0-20)
[2024-03-26 03:03] LABS: CRP < 0.5 mg/dL (<1.0)
[2024-03-26] MEDS: LEVOTHYROXINE SODIUM 100 MCG TABLET PO (06:07)
[2024-03-26] MEDS: LINACLOTIDE 145 MCG CAPSULE PO (06:07)
[2024-03-26 06:22] LABS: Basophils Percent Auto 0.2 % (0.2-1.2); Eosinophils Absolute Auto 0.2 K/mm3 (0-0.3); Eosinophils Percent Auto 3.6 % (0-4.4); Hematocrit 31.5 % (37.0-47.0); Hemoglobin 9.3 g/dL (12.0-15.0); Immature Granulocyte Absolute 0.01 K/mm3 (0.00-0.031); Immature Granulocyte Percent A 0.2 % (0-0.5); Lymphocytes Absolute Auto 1.53 K/mm3 (0.9-3.2); Lymphocytes Percent Auto 36.7 % (18.3-44.2); Mean Corpuscular HGB Conc 29.5 g/dl (32-36); Mean Corpuscular Hemoglobin 27.4 pg (26-34); Mean Corpuscular Volume 92.9 fl (80-100); Mean Platelet Volume 9.7 fl (7.4-10.4); Monocytes Absolute Auto 0.4 K/mm3 (0.1-0.6); Monocytes Percent Auto 10.6 % (2.6-8.5); Neutrophils Percent Auto 48.7 % (45.5-73.1); Platelet Count Result 155 k/mm3 (150-375); Red Blood Count 3.39 M/mm3 (4.2-5.4); Red Cell Distribution Width 18.7 % (11.5-14.5); White Blood Count 4.2 K/mm3 (4.5-10.0)
[2024-03-26 06:31] LABS: Alanine Aminotransferase 13 U/L (6-35); Albumin Level 3.7 g/dL (3.5-5.1); Alkaline Phosphatase 80 U/L (38-126); Anion Gap 8 mmol/L (4-12); Aspartate Amino Transferase 23 U/L (14-36); Bilirubin,Total 0.7 mg/dL (0.2-1.3); Blood Urea Nitrogen 9 mg/dL (7-17); Calcium 8.8 mg/dL (8.4-10.2); Carbon Dioxide 29 mmol/L (22-30); Chloride 102 mmol/L (98-107); Estimated CRCL calculation 36 ml/min; Estimated Glomerular Filt Rate 53; Glucose 106 mg/dL (65-110); Potassium 4.1 mmol/L (3.4-5.0); Sodium 139 mmol/L (137-145)
[2024-03-26 06:51] LABS: Glucose Point of Care 111 mg/dl (65-105)
[2024-03-26 07:49] LABS: Platelet Estimate Adequate (Adequate)
[2024-03-26 07:50] LABS: Anisocytosis 1+; Hypochromasia 1+; Ovalocytes 1+; Schistocytes None Seen
[2024-03-26] MEDS: dilTIAZem 100 MG/100 ML 100 MG/100 ML BAG 8 MG IV CONT ×2 (08:00→23:12)
[2024-03-26] MEDS: SODIUM CHLORIDE 0.9% IV 1,000 ML 100 ML IV CONT (08:30)
--- NOTE | 2024-03-26 08:42 | WPDGICN ---
Assessment and Plan Assessment and plan (1) Abnormal liver diagnostic imaging: Code(s): R93.2 - Abnormal findings on diagnostic imaging of liver and biliary tract Status: Acute (2) Chronic constipation: Code(s): K59.09 - Other constipation Status: Acute (3) Anemia of chronic disease: Code(s): D63.8 - Anemia in other chronic diseases classified elsewhere Status: Acute (4) Abdominal bloating: Code(s): R14.0 - Abdominal distension (gaseous) Status: Acute (5) Portal vein injury: Qualifiers: Encounter type: initial encounter Qualified Code(s): S35.319A - Unspecified injury of portal vein, initial encounter Code(s): S35.319A - Unspecified injury of portal vein, initial encounter Status: Acute Plan 1. Abnormal imaging liver- Portal ravinder gas: CTA of chest 03/25/2024 showed nonspecific portal venous gas in the liver. Follow-up CT performed today showed no findings of portal venous gas and CT abdomen/pelvis was overall unremarkable. No concerning GI symptoms, imaging or labs to support diagnosis. To note patient was newly started on Eliquis last week by her senior pricing analyst and is pending a cardioversion for AFib. No further workup required 2. Chronic constipation/BLQ abdominal pain/bloating: Last colonoscopy 07/22/2023 showed diverticulosis and small internal hemorrhoids but was otherwise unremarkable. Patient with chronic constipation and lower abdominal pain. Patient states both of these symptoms have been occurring for a few years but her lower abdominal pain has seemed to increase in severity and frequency since her spinal cord stimulator placement on February 10. She had previously tried milk of magnesia, MiraLax, stool softeners, and laxatives without consistent relief. She was started on her 1st prescription medication for constipation a few months ago and has been taking Linzess 145 mcg daily and states that she is having 1 bowel movement weekly. Prior to starting Linzess she states that it would take even longer to have a bowel movement . She has been on is in Ozempic for around 1 month but denies any change in her GI symptoms since starting this medication. she has had increased abdominal bloating over the past 3 weeks. No signs of increased stool burden on imaging. Per patient last BM was yesterday. Increase Linzess to 290 mcg daily if constipation persists on higher dose may add MiraLax daily to be taken in combination with Linzess patient can follow up as outpatient for further workup 3. Anemia of chronic disease: Patient with chronic normocytic anemia with baseline between 8-9. Labs since admission show HGB 10 -->9 and Hct 36-->32. MCV 93, platelets 155, INR 1.3. Patient denies any signs of active GI bleeding to include hematemesis, hematochezia, or melena. Primary care team to continue monitoring H&H and transfuse as needed to keep HGB > 7 if anemia persists this can be further worked up as outpatient Thank you very much for allowing me to share in the care of this very nice patient This report may have been done utilizing a voice recognition system. Attempts have been made to correct errors. However, there may be uncorrected grammatical, spelling, and recognition errors present. 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 She was seen at a local urgent care yesterday for rapid heart rate and was advised to proceed to the emergency room. GI has been consulted for portal venous gas noted on imaging. Patient complains of chronic constipation that seem to get worse after her spinal cord s
--- NOTE | 2024-03-26 08:57 | PM.IMPN ---
Progress Note: A&P Assessment and Plan (1) Atrial fibrillation with RVR: Code(s): I48.91 - Unspecified atrial fibrillation Status: Acute Assessment and Plan: Patient presents with tachycardia and known AFib. She was on Eliquis and Toprol XL 25mg daily at home. She follows with [facility]. EKG showing tachycardia, atrial fibrillation, non-specific ST changes, normal QT and NL axis Echo in 2020 showing mild septal hypertrophy w/o obstruction, normal LV systolic function with EF 55%, impaired LV relaxation, nml RV, mild MR CXR showing no acute cardiopulmonary disease She is on Sildenafil for pulmonary HTN DDimer positive. CTA negative for PE and diffusely ectatic thoracic aorta. Given metoprolol IV with some response in heart rate but HR remained greater than 100. Transitioned to IVP dose of diltiazem, initially brought heart rate down to 70-90 then transitioned ultimately to IV drip at diltiazem 5 mg/hr [id number]: 5 (age, sex, htn, dm). TSH normal. HR still poorly controlled. Continue telemetry monitoring. Advance diltiazem. Cardiology consulted Hold Eliquis (see below) (2) Portal vein injury: Code(s): S35.319A - Unspecified injury of portal vein, initial encounter Status: Acute Assessment and Plan: CTA chest showing portal venous gas. No gas noted within the GB or CBD. Differential listed include ischemia, PUD, IBD, infection, malignancy or bowel obstruction CT Abd/pelvis this morning showing resolution of portal gas. CRP negative but ESR 32. WBC normal/low Hold Eliquis. NPO. Start IV fluids. GI consult. Change to IV PPI. (3) Type 2 diabetes mellitus: Qualifiers: Diabetes mellitus fdc insulin use: without fdc use Diabetes mellitus complication status: without complication Qualified Code(s): E11.9 - Type 2 diabetes mellitus without complications Code(s): E11.9 - Type 2 diabetes mellitus without complications Status: Acute Assessment and Plan: A1C 6.1% on 02/04/2024. The patient's blood glucose was reviewed on 03/26 Glucose remains well controlled. Continue AccuCheks covering with sliding scale. Hypoglycemia protocol available as needed. Continue to monitor (4) Hypertension: Qualifiers: Hypertension type: primary hypertension Qualified Code(s): I10 - Essential (primary) hypertension Code(s): I10 - Essential (primary) hypertension Status: Acute Assessment and Plan: Patient's blood pressure was reviewed on 03/26 Blood pressure remains well controlled. Will continue to monitor (5) Obstructive sleep apnea on CPAP: Code(s): G47.33 - Obstructive sleep apnea (adult) (pediatric) Status: Acute Assessment and Plan: She is compliant with her CPAP at home Continue CPAP here Plan DVT Prophylaxis: Eliquis held. Add SCDs Code Status: Full code Subjective Date/time seen: 03/26/24 08:57 Interval history: 83yo female with AFib, HTN and RAVINDRA here for rapid heart rate. Assuming care. Chart reviewed. She has been having upper abdominal pain chronically but worsened after the spinal stimulator placement last month. CT A/P was performed 02/11/24 but no acute findings. She is scheduled to have an EGD at [facility] next week. Takes Aleve 2 tabs once per week on average. Exam Narrative: AF 97.3 115/74 114 16 96% ra Gen - NARD Chest - CTA bilaterally, nml RR CV - Rirregular and tachycardic. Tele showing AFib with RVR Abd - Soft, ND, mild epigastric pain, +BS Ext - No pedal edema Psych - Nml mood and affect Skin - Warm and dry Objective Data Vital Signs Vital Signs: Vital Signs - 24 hr 03/25/24 16:04 03/25/24 16:12 03/25/24 16:21 Temperature 97.6 F Pulse Rate 136 H 130 H Respiratory Rate 24 H Blood Pressure 144/79 H Pulse Oximetry 98 Oxygen Delivery Room Air 03/25/24 16:04 03/25/24 16:15 03/25/24 16:24 Temperature Pulse Rate
[2024-03-26] MEDS: LORATADINE 10 MG TABLET PO (09:24)
[2024-03-26] MEDS: lisinopriL 5 MG TABLET PO (09:24)
[2024-03-26] MEDS: DULoxetine HCL 30 MG CAPSULE.DR PO (09:25)
[2024-03-26] MEDS: DULoxetine HCL 60 MG CAPSULE.DR PO (09:25)
[2024-03-26] MEDS: FUROSEMIDE 20 MG TABLET PO (09:25)
[2024-03-26] MEDS: PANTOPRAZOLE SODIUM IV 40 MG VIAL IV PUSH ×2 (09:28→20:18)
[2024-03-26] MEDS: OPTI-GEN TAB 1 TABLET PO ×2 (09:28→17:30)
[2024-03-26 11:42] LABS: Glucose Point of Care 108 mg/dl (65-105)
[2024-03-26 15:39] LABS: Glucose Point of Care 161 mg/dl (65-105)
[2024-03-26] MEDS: METOPROLOL TARTRATE 12.5 MG TABLET PO ×2 (17:30→23:19)
[2024-03-26 19:59] LABS: Glucose Point of Care 145 mg/dl (65-105)
[2024-03-26] MEDS: ATORVASTATIN 20 MG TABLET PO (20:18)
[2024-03-26] MEDS: ALPRAZolam (*CRX) 0.5 MG TABLET 1 MG PO (20:18)
[2024-03-26] MEDS: APIXABAN 5 MG TABLET PO (20:18)
[2024-03-26] MEDS: MONTELUKAST SODIUM 10 MG TABLET PO (20:18)
[2024-03-27] VITALS (21 sets, daily range): BP systolic 99–122; BP diastolic 51–70; PULSE 70–123; RESP 16–32; TEMP 36.6–36.9; O2SAT 93–97
[2024-03-27 04:55] LABS: Eosinophils Absolute Auto 0.2 K/mm3 (0-0.3); Hematocrit 31.1 % (37.0-47.0); Hemoglobin 9.1 g/dL (12.0-15.0); Immature Granulocyte Absolute 0.01 K/mm3 (0.00-0.031); Immature Granulocyte Percent A 0.2 % (0-0.5); Lymphocytes Absolute Auto 1.16 K/mm3 (0.9-3.2); Lymphocytes Percent Auto 24.6 % (18.3-44.2); Mean Corpuscular HGB Conc 29.3 g/dl (32-36); Mean Corpuscular Hemoglobin 27.4 pg (26-34); Mean Corpuscular Volume 93.7 fl (80-100); Monocytes Absolute Auto 0.5 K/mm3 (0.1-0.6); Monocytes Percent Auto 9.6 % (2.6-8.5); Neutrophils Absolute Auto 2.9 K/mm3 (1.3-6.7); Neutrophils Percent Auto 61.6 % (45.5-73.1); Platelet Count Result 156 k/mm3 (150-375); Red Blood Count 3.32 M/mm3 (4.2-5.4); Red Cell Distribution Width 18.8 % (11.5-14.5); White Blood Count 4.7 K/mm3 (4.5-10.0)
[2024-03-27 05:06] LABS: Alanine Aminotransferase 11 U/L (6-35); Albumin Level 3.4 g/dL (3.5-5.1); Alkaline Phosphatase 82 U/L (38-126); Anion Gap 9 mmol/L (4-12); Aspartate Amino Transferase 20 U/L (14-36); Bilirubin,Total 0.6 mg/dL (0.2-1.3); Blood Urea Nitrogen 10 mg/dL (7-17); Calcium 8.7 mg/dL (8.4-10.2); Carbon Dioxide 27 mmol/L (22-30); Chloride 101 mmol/L (98-107); Estimated CRCL calculation 36 ml/min; Estimated Glomerular Filt Rate 53; Glucose 130 mg/dL (65-110); Magnesium 1.6 mg/dL (1.6-2.3); Phosphorus 3.9 mg/dL (2.5-4.5); Potassium 3.5 mmol/L (3.4-5.0); Sodium 137 mmol/L (137-145)
[2024-03-27 05:14] LABS: Anisocytosis 1+; Crenated RBC 1+; Ovalocytes 1+; Platelet Estimate Adequate (Adequate); Poikilocytosis 1+; Schistocytes None Seen
[2024-03-27] MEDS: LINACLOTIDE 145 MCG CAPSULE 290 MCG PO (06:09)
[2024-03-27] MEDS: LEVOTHYROXINE SODIUM 100 MCG TABLET PO (06:09)
[2024-03-27] MEDS: METOPROLOL TARTRATE 12.5 MG TABLET PO (06:09)
[2024-03-27 07:43] LABS: Glucose Point of Care 128 mg/dl (65-105)
[2024-03-27] MEDS: OPTI-GEN TAB 1 TABLET PO ×2 (08:27→16:57)
[2024-03-27] MEDS: SILDENAFIL CITRATE 20 MG TABLET PO ×2 (08:27→20:57)
[2024-03-27] MEDS: APIXABAN 5 MG TABLET PO ×2 (08:27→20:56)
[2024-03-27] MEDS: DULoxetine HCL 30 MG CAPSULE.DR PO (08:27)
[2024-03-27] MEDS: PANTOPRAZOLE SODIUM IV 40 MG VIAL IV PUSH ×2 (08:27→20:56)
[2024-03-27] MEDS: LORATADINE 10 MG TABLET PO (08:27)
[2024-03-27] MEDS: DULoxetine HCL 60 MG CAPSULE.DR PO (08:27)
[2024-03-27] MEDS: SODIUM CHLORIDE 0.9% IV 500 ML 10 ML (08:28)
[2024-03-27] MEDS: dilTIAZem 100 MG/100 ML 100 MG/100 ML BAG 8 MG IV CONT (08:33)
[2024-03-27] MEDS: POTASSIUM CHLORIDE 20 MEQ ER TABLET 40 MEQ PO (10:21)
[2024-03-27] MEDS: MAGNESIUM SULF 2 GM/WATER 50ML 2 GM/50 ML BAG IVPB (10:21)
--- NOTE | 2024-03-27 11:19 | PM.CNCAR ---
Assessment and Plan Assessment and plan (1) Atrial fibrillation with RVR: Code(s): I48.91 - Unspecified atrial fibrillation Status: Acute Plan This is an 83-year-old woman with atrial fibrillation who has her cardiovascular care elsewhere as stated in the notes. She was sent to this hospital where her tool chaser does not practice because of RVR there was noticed in the office. Her metoprolol dosage has been advanced to 100 mg and on that dosage at the moment her heart rate control appears to be satisfactory. Diltiazem has been stopped at this time. She continues to appropriately to be anticoagulated. I would recommend transitioning her to a long-acting metoprolol for dosing convenience and if she is hemodynamically stable with adequate rate control considering discharge tomorrow. She is not unstable where she needs a MALIKA/cardioversion at this time at this hospital. It would not be my intention to alter the plan of her established tool chaser as the patient is not clinically unstable. I mentioned to the patient and her daughter that if she has been in atrial fibrillation since at least May of last year and she has marked biatrial dilation on echo the chance of successfully maintaining sinus rhythm is low. We do not have records of her tool chaser appointments of of recent follow-up therefore I would presume that she has been in sinus rhythm at times. I will see her tomorrow and assess her heart rate control and hopefully she can be dismissed at that time Jeff Silva MD [facility] History of Present Illness History of Present Illness Consult date/time: 03/27/24 11:19 Reason For Visit: afib with rvr Narrative: This is an 83-year-old woman I am seeing at the request of the hospitalist because of atrial fibrillation. She is not known to me but is known to and followed by physicians at [facility]. The patient was admitted to the hospital from her PCP office yesterday because of atrial fib with rapid ventricular response. Apparently she was in the hot office being established as a new patient for ongoing general medical care this was identified and she was advised to come to the emergency department. She was evaluated in the in the ED and admitted. She has symptoms of poor exertional tolerance with fatigue and some shortness of breath but no specific awareness of her arrhythmia in terms of palpitations. She is not having any chest pain pressure or heaviness. According to the patient and her daughter she has a history of atrial fibrillation dating back to sometime in 2022. We do have records of her being at this hospital in May of 2023 and having been in atrial fibrillation heart rate was controlled. Her physicians at [facility] saw her recently in the office within the last couple of weeks and started her on anticoagulation with apixaban and recommended and scheduled a cardioversion which is on the schedule for 2 or 3 weeks from now. She has been taking metoprolol at a dosage of 25 mg per day. That has been increased to 100 mg per day. It looks like she was on some IV diltiazem for rate control he yesterday evening and that now has been stopped. Echocardiogram done yesterday here and read by myself demonstrates normal left ventricular systolic function, no significant valvular disease, she has mild MR and marked biatrial dilation. Review of Systems Constitutional: Constitutional: Reports no additional constitutional complaints ENT: Reports system reviewed and no additional complaints, except as documented Cardiovascular: Cardiovascular: Reports pedal edema and Reports leg edema Respiratory: Respiratory: Reports dyspnea on exertion Gastrointestinal: Gastrointestinal: Reports no additional gastrointestinal complaints Musculoskeletal: Musculoskeletal: Reports no additional musculoskeletal complaints Integumentary/Breasts: Skin/Breast: Reports system reviewed and no additional
[2024-03-27 11:48] LABS: Glucose Point of Care 123 mg/dl (65-105)
--- NOTE | 2024-03-27 12:04 | PM.IMPN ---
Progress Note: A&P Assessment and Plan (1) Atrial fibrillation with RVR: Code(s): I48.91 - Unspecified atrial fibrillation Status: Acute Assessment and Plan: Patient presents with tachycardia and known AFib. She was on Eliquis and Toprol XL 25mg daily at home. She follows with [facility] with plans for cardioversion next week. EKG showing tachycardia, atrial fibrillation, non-specific ST changes, normal QT and NL axis Echo here showing normal LV size with mild concentric LVH and preserved systolic fxn with EF 50-55%, severe biatrial enlargement L>R and moderate TR with moderate pHTN. CXR showing no acute cardiopulmonary disease She is on Sildenafil for pulmonary HTN TSH normal. DDimer positive. CTA negative for PE and diffusely ectatic thoracic aorta. LE venous doppler negative for DVT. [id number]: 5 (age, sex, htn, dm). Given metoprolol IV with some response in heart rate but HR remained greater than 100. Transitioned to IVP dose of diltiazem, initially brought heart rate down to 70-90 then transitioned ultimately to IV diltiazem drip. Oral metoprolol added and advanced HR became better controlled and able to stop diltiazem. Cardiology consulted and appreciate their input. She feels edematous possibly related to uncontrolled HR and being off lasix. Trial of Lasix if BP improves. Increase activity Continue Eliquis (2) Portal vein injury: Qualifiers: Encounter type: initial encounter Qualified Code(s): S35.319A - Unspecified injury of portal vein, initial encounter Code(s): S35.319A - Unspecified injury of portal vein, initial encounter Status: Acute Assessment and Plan: CTA chest showing portal venous gas. No gas noted within the GB or CBD. Differential listed include ischemia, PUD, IBD, infection, malignancy or bowel obstruction CT Abd/pelvis showing resolution of portal gas. CRP negative but ESR 32. WBC normal/low GI consulted but no further evaluation recommended. (3) Type 2 diabetes mellitus: Qualifiers: Diabetes mellitus continuous churn buttermaker insulin use: without mcfp use Diabetes mellitus complication status: without complication Qualified Code(s): E11.9 - Type 2 diabetes mellitus without complications Code(s): E11.9 - Type 2 diabetes mellitus without complications Status: Acute Assessment and Plan: A1C 6.1% on 02/04/2024. The patient's blood glucose was reviewed on 03/27 Glucose remains well controlled. Continue AccuCheks covering with sliding scale. Hypoglycemia protocol available as needed. Continue to monitor (4) Hypertension: Qualifiers: Hypertension type: primary hypertension Qualified Code(s): I10 - Essential (primary) hypertension Code(s): I10 - Essential (primary) hypertension Status: Acute Assessment and Plan: Patient's blood pressure was reviewed on 03/27 Blood pressure remains soft at times. Lasix and lisinopril stopped due to soft BP Will continue to monitor (5) Obstructive sleep apnea on CPAP: Code(s): G47.33 - Obstructive sleep apnea (adult) (pediatric) Status: Acute Assessment and Plan: She is compliant with her CPAP at home CPAP ordered 03/26 Plan Ch constipation - GI advanced her linzess. Add miralax prn as patient takes at home Ch Anemia - Hgb chronically low mostly 8-9 range. Check iron studies, b12 DVT Prophylaxis: Eliquis Code Status: Full code Subjective Date/time seen: 03/27/24 12:04 Interval history: 83yo female with AFib, HTN and RAVINDRA here for rapid heart rate. No CP or SOB. Having LAU. Complains of feeling swollen in her abd, hands and feet. No BM since change i linzess but passing flatus. Also belching with foul smell. Exam Narrative: AF 98.4 109/70 81 16 96% ra Gen - NARD Chest - bibasilar L>R inspiratory crackles CV - Irregular. Tele showing AFib with controlled rate Abd - Soft, ND, mild epigastric
[2024-03-27 15:47] LABS: Glucose Point of Care 113 mg/dl (65-105)
[2024-03-27 20:39] LABS: Glucose Point of Care 163 mg/dl (65-105)
[2024-03-27] MEDS: ATORVASTATIN 20 MG TABLET PO (20:56)
[2024-03-27] MEDS: MONTELUKAST SODIUM 10 MG TABLET PO (20:57)
[2024-03-27] MEDS: ALPRAZolam (*CRX) 0.5 MG TABLET 1 MG PO (20:57)
[2024-03-28] VITALS (20 sets, daily range): BP systolic 98–118; BP diastolic 56–65; PULSE 79–123; RESP 16–24; TEMP 36.5–37.1; O2SAT 94–98
[2024-03-28 01:04] LABS: Prolactin 11.8 ng/mL
[2024-03-28 04:15] LABS: Hematocrit 30.2 % (37.0-47.0); Mean Corpuscular HGB Conc 29.8 g/dl (32-36); Mean Corpuscular Hemoglobin 27.6 pg (26-34); Mean Corpuscular Volume 92.6 fl (80-100); Mean Platelet Volume 10.5 fl (7.4-10.4); Platelet Count Result 147 k/mm3 (150-375); Red Blood Count 3.26 M/mm3 (4.2-5.4); Red Cell Distribution Width 18.7 % (11.5-14.5); White Blood Count 3.7 K/mm3 (4.5-10.0)
[2024-03-28 04:43] LABS: Iron 49 ug/dL (37-170)
[2024-03-28 04:44] LABS: Anion Gap 5 mmol/L (4-12); Blood Urea Nitrogen 12 mg/dL (7-17); Calcium 8.9 mg/dL (8.4-10.2); Carbon Dioxide 29 mmol/L (22-30); Chloride 104 mmol/L (98-107); Estimated CRCL calculation 33 ml/min; Estimated Glomerular Filt Rate 47; Glucose 123 mg/dL (65-110); Sodium 138 mmol/L (137-145)
[2024-03-28 04:52] LABS: Percent Iron Saturation 13 % (20-50)
[2024-03-28] MEDS: LEVOTHYROXINE SODIUM 100 MCG TABLET PO (05:41)
[2024-03-28] MEDS: LINACLOTIDE 145 MCG CAPSULE 290 MCG PO (05:41)
[2024-03-28 05:53] LABS: Folic Acid 9.7 ng/mL (2.76->20)
[2024-03-28 06:55] LABS: Glucose Point of Care 116 mg/dl (65-105)
[2024-03-28] MEDS: METOPROLOL SUCCINATE EXT REL 100 MG TABCR PO (08:24)
[2024-03-28] MEDS: PANTOPRAZOLE SODIUM IV 40 MG VIAL IV PUSH ×2 (08:25→20:29)
[2024-03-28] MEDS: LORATADINE 10 MG TABLET PO (08:25)
[2024-03-28] MEDS: APIXABAN 5 MG TABLET PO ×2 (08:25→20:28)
[2024-03-28] MEDS: DULoxetine HCL 60 MG CAPSULE.DR PO (08:25)
[2024-03-28] MEDS: OPTI-GEN TAB 1 TABLET PO ×2 (08:25→18:09)
[2024-03-28] MEDS: DULoxetine HCL 30 MG CAPSULE.DR PO (08:25)
[2024-03-28] MEDS: SILDENAFIL CITRATE 20 MG TABLET PO ×2 (08:25→20:28)
[2024-03-28] MEDS: IRON SUCROSE COMPLEX 100 MG in SODIUM CHLORIDE 0.9% IV 50 ML 220 MG IVPB (09:05)
--- NOTE | 2024-03-28 09:31 | PM.PNCARD ---
Progress Note: A&P Assessment and Plan (1) Atrial fibrillation with RVR: Code(s): I48.91 - Unspecified atrial fibrillation Status: Acute Plan 83-year-old lady with persistent atrial fibrillation heart rate control is improved with higher dose of metoprolol. I am going to go ahead and add some long-acting diltiazem today to try to improve this so that she is optimized regarding heart rate while she is waiting for her established rotor casting machine setup operator perform scheduled cardioversion couple of weeks from now. Probably a better plan is to keep her in the hospital least until tomorrow while we manipulate her medication Jeff Silva MD [facility] Subjective Date/time seen: 03/28/24 09:31 Interval history: Follow-up visit in this 83-year-old lady with atrial fibrillation admitted here for RVR. Her cardiovascular care is elsewhere as I dictated in my consult note. This morning she feels somewhat better with improvement in her heart rate control. She still reports however the sense of dyspnea with modest activity such as ambulating in the room. Heart rate tends to be 100-110 at rest for the most part Exam Const: General: comfortable and no acute distress Other: Obese elderly lady no distress, supine in bed Eyes: Sclera: sclerae normal Neck: Neck: supple Resp: Effort & Inspection: normal respiratory effort Auscultation: clear to auscultation bilaterally Cardio: Rate: tachycardic Rhythm: abnormal rhythm irregularly irregular GI: GI Palp: Yes Soft to palpation Auscultation: normal bowel sounds Skin: General skin exam: normal color Neuro: Other: Alert and oriented x3 Extrem: Other: Normal perfusion Objective Data Vital Signs Vital Signs: Vital Signs - 24 hr 03/27/24 10:00 03/27/24 11:53 03/27/24 10:00 Temperature 36.9 C Pulse Rate 74 81 70 Respiratory Rate 16 Blood Pressure 109/70 103/52 L Pulse Oximetry 96 Oxygen Delivery Fraction of Inspired Oxygen 03/27/24 12:00 03/27/24 12:35 03/27/24 12:00 Temperature Pulse Rate 81 81 Respiratory Rate Blood Pressure 109/70 109/70 Pulse Oximetry 96 Oxygen Delivery Room Air Fraction of Inspired Oxygen 03/27/24 12:00 03/27/24 14:00 03/27/24 15:58 Temperature 36.6 C Pulse Rate 80 89 100 Respiratory Rate 16 Blood Pressure 113/65 Pulse Oximetry 97 Oxygen Delivery Fraction of Inspired Oxygen 03/27/24 16:00 03/27/24 16:00 03/27/24 18:00 Temperature Pulse Rate 97 110 H Respiratory Rate Blood Pressure Pulse Oximetry 97 Oxygen Delivery Room Air Fraction of Inspired Oxygen 03/27/24 20:51 03/27/24 20:00 03/27/24 22:00 Temperature 36.6 C Pulse Rate 99 103 H 105 H Respiratory Rate 18 Blood Pressure 122/63 Pulse Oximetry 97 Oxygen Delivery Fraction of Inspired Oxygen 03/28/24 00:04 03/28/24 00:00 03/28/24 00:00 Temperature 36.6 C Pulse Rate 122 H 122 H Respiratory Rate 18 Blood Pressure 118/56 L Pulse Oximetry 98 Oxygen Delivery Room Air Fraction of Inspired Oxygen 03/28/24 02:00 03/28/24 04:32 03/28/24 04:00 Temperature 36.5 C Pulse Rate 122 H 113 H 118 H Respiratory Rate 18 Blood Pressure 105/57 L Pulse Oximetry 98 Oxygen Delivery Fraction of Inspired Oxygen 03/28/24 04:00 03/28/24 06:00 03/28/24 07:40 Temperature 36.9 C Pulse Rate 115 H 123 H Respiratory Rate 24 H Blood Pressure 101/56 L Pulse Oximetry 94 Oxygen Delivery Room Air Fraction of Inspired Oxygen 03/28/24 07:46 03/28/24 08:24 Temperature Pulse Rate 108 H Respiratory Rate Blood Pressure Pulse Oximetry 95 Oxygen Delivery Room Air Fraction of Inspired Oxygen 21 Intake/Output Intake/Output: Intake & Output 03/25/24 03/26/24 03/27/24 03/28/24 23:59 23:59 23:59 23:59 Intake Total 1050 1159.5 1122.7 660 Output Total 600 450 600 Balance 1050 559.5 672.7 60 Meds/Results Medications: Activ
[2024-03-28] MEDS: dilTIAZem HCL CD 180 MG CAP.24HR PO (10:09)
[2024-03-28 11:55] LABS: Glucose Point of Care 108 mg/dl (65-105)
--- NOTE | 2024-03-28 14:33 | PM.IMPN ---
Progress Note: A&P Assessment and Plan (1) Atrial fibrillation with RVR: Code(s): I48.91 - Unspecified atrial fibrillation Status: Acute Assessment and Plan: Patient presents with tachycardia and known AFib. She was on Eliquis and Toprol XL 25mg daily at home. She follows with [facility] with plans for cardioversion this week. EKG showing tachycardia, atrial fibrillation, non-specific ST changes, normal QT and NL axis Echo here showing normal LV size with mild concentric LVH and preserved systolic fxn with EF 50-55%, severe biatrial enlargement L>R and moderate TR with moderate pHTN. CXR showing no acute cardiopulmonary disease She is on Sildenafil for pulmonary HTN TSH normal. DDimer positive. CTA negative for PE and diffusely ectatic thoracic aorta. LE venous doppler negative for DVT. [id number]: 5 (age, sex, htn, dm). Given metoprolol IV with some response in heart rate but HR remained greater than 100. Transitioned to IV diltiazem Oral metoprolol added and advanced HR became better controlled and able to stop diltiazem. Cardiology consulted and appreciate their input. She feels edematous possibly related to uncontrolled HR and being off lasix. Due to timing issue, the patient never received Toprol XL yesterday so HR higher overnight. She received Toprol today and Diltiazem added. Monitor closely on tele. Increase activity. Continue Eliquis (2) Portal vein injury: Qualifiers: Encounter type: initial encounter Qualified Code(s): S35.319A - Unspecified injury of portal vein, initial encounter Code(s): S35.319A - Unspecified injury of portal vein, initial encounter Status: Acute Assessment and Plan: CTA chest showing portal venous gas. No gas noted within the GB or CBD. Differential listed include ischemia, PUD, IBD, infection, malignancy or bowel obstruction CT Abd/pelvis showing resolution of portal gas. CRP negative but ESR 32. WBC normal/low GI consulted but no further evaluation recommended. (3) Type 2 diabetes mellitus: Qualifiers: Diabetes mellitus fci insulin use: without fci use Diabetes mellitus complication status: without complication Qualified Code(s): E11.9 - Type 2 diabetes mellitus without complications Code(s): E11.9 - Type 2 diabetes mellitus without complications Status: Acute Assessment and Plan: A1C 6.1% on 02/04/2024. The patient's blood glucose was reviewed on 03/28 Glucose remains well controlled. Continue AccuCheks covering with sliding scale. Hypoglycemia protocol available as needed. Continue to monitor (4) Hypertension: Qualifiers: Hypertension type: primary hypertension Qualified Code(s): I10 - Essential (primary) hypertension Code(s): I10 - Essential (primary) hypertension Status: Acute Assessment and Plan: Patient's blood pressure was reviewed on 03/28 Blood pressure remains soft at times. Lasix and lisinopril stopped due to soft BP Will continue to monitor (5) Obstructive sleep apnea on CPAP: Code(s): G47.33 - Obstructive sleep apnea (adult) (pediatric) Status: Acute Assessment and Plan: She is compliant with her CPAP at home CPAP ordered 03/26 Plan Ch constipation - GI advanced her linzess. Added miralax prn as patient takes at home Ch Anemia - Hgb chronically low mostly 8-9 range. B12/Folate normal. Iron studies consistent with iron deficiency. Start IV iron. Probably seeing Heme/Onc for the mild pancytopenia noted here. Encourage her to keep that appointment. DVT Prophylaxis: Eliquis Code Status: Full code Subjective Date/time seen: 03/28/24 14:33 Interval history: 83yo female with AFib, HTN and RAVINDRA here for rapid heart rate. Feels better. Edema is improved. Noted to be iron deficient here but patient was aware of this from recent testing and is scheduled to follow-up with Heme/Onc for iron i
[2024-03-28 16:56] LABS: Glucose Point of Care 122 mg/dl (65-105)
[2024-03-28] MEDS: ALPRAZolam (*CRX) 0.5 MG TABLET 1 MG PO (20:27)
[2024-03-28] MEDS: MONTELUKAST SODIUM 10 MG TABLET PO (20:27)
[2024-03-28] MEDS: ATORVASTATIN 20 MG TABLET PO (20:28)
[2024-03-28 20:57] LABS: Glucose Point of Care 126 mg/dl (65-105)
[2024-03-29] VITALS (10 sets, daily range): BP systolic 99–107; BP diastolic 52–70; PULSE 70–95; RESP 16–20; TEMP 36.4–36.6; O2SAT 97–99
[2024-03-29 04:33] LABS: Basophils Percent Auto 0.4 % (0.2-1.2); Eosinophils Absolute Auto 0.2 K/mm3 (0-0.3); Eosinophils Percent Auto 4.6 % (0-4.4); Hemoglobin 8.9 g/dL (12.0-15.0); Immature Granulocyte Absolute 0.01 K/mm3 (0.00-0.031); Immature Granulocyte Percent A 0.2 % (0-0.5); Lymphocytes Absolute Auto 1.47 K/mm3 (0.9-3.2); Mean Corpuscular HGB Conc 29.7 g/dl (32-36); Mean Corpuscular Hemoglobin 27.6 pg (26-34); Mean Corpuscular Volume 93.2 fl (80-100); Mean Platelet Volume 10.1 fl (7.4-10.4); Monocytes Absolute Auto 0.4 K/mm3 (0.1-0.6); Monocytes Percent Auto 9.1 % (2.6-8.5); Neutrophils Absolute Auto 2.5 K/mm3 (1.3-6.7); Neutrophils Percent Auto 53.7 % (45.5-73.1); Platelet Count Result 150 k/mm3 (150-375); Red Blood Count 3.22 M/mm3 (4.2-5.4); Red Cell Distribution Width 18.6 % (11.5-14.5); White Blood Count 4.6 K/mm3 (4.5-10.0)
[2024-03-29 04:56] LABS: Anion Gap 8 mmol/L (4-12); Blood Urea Nitrogen 12 mg/dL (7-17); Calcium 8.7 mg/dL (8.4-10.2); Carbon Dioxide 25 mmol/L (22-30); Chloride 104 mmol/L (98-107); Estimated CRCL calculation 33 ml/min; Estimated Glomerular Filt Rate 47; Glucose 107 mg/dL (65-110); Potassium 3.8 mmol/L (3.4-5.0); Sodium 137 mmol/L (137-145)
[2024-03-29 04:57] LABS: Platelet Clumps Present; Platelet Estimate Adequate (Adequate)
[2024-03-29 04:59] LABS: Anisocytosis 1+; Hypochromasia 1+; Large Platelets Present; Poikilocytosis 1+
[2024-03-29 05:00] LABS: Ovalocytes 2+
[2024-03-29 05:01] LABS: Crenated RBC 1+; Schistocytes None Seen
[2024-03-29 06:48] LABS: Glucose Point of Care 123 mg/dl (65-105)
[2024-03-29] MEDS: LEVOTHYROXINE SODIUM 100 MCG TABLET PO (07:22)
[2024-03-29] MEDS: LINACLOTIDE 145 MCG CAPSULE 290 MCG PO (07:22)
[2024-03-29] MEDS: DULoxetine HCL 30 MG CAPSULE.DR PO (08:11)
[2024-03-29] MEDS: DULoxetine HCL 60 MG CAPSULE.DR PO (08:11)
[2024-03-29] MEDS: METOPROLOL SUCCINATE EXT REL 100 MG TABCR PO (08:11)
[2024-03-29] MEDS: APIXABAN 5 MG TABLET PO (08:12)
[2024-03-29] MEDS: SILDENAFIL CITRATE 20 MG TABLET PO (08:12)
[2024-03-29] MEDS: LORATADINE 10 MG TABLET PO (08:12)
[2024-03-29] MEDS: dilTIAZem HCL CD 180 MG CAP.24HR PO (08:13)
[2024-03-29] MEDS: PANTOPRAZOLE SODIUM IV 40 MG VIAL IV PUSH (08:13)
[2024-03-29] MEDS: OPTI-GEN TAB 1 TABLET PO (08:13)
--- NOTE | 2024-03-29 08:44 | PM.PNCARD ---
Progress Note: A&P Assessment and Plan (1) Atrial fibrillation with RVR: Code(s): I48.91 - Unspecified atrial fibrillation Status: Acute Plan 83-year-old lady with atrial fibrillation admitted here with shortness of breath and rapid ventricular response. Metoprolol dosage has been advanced and some low-dose of diltiazem has been added yesterday. Heart rate is is nicely controlled and she is essentially asymptomatic. She can be discharged this morning from my perspective and will follow-up with her established customer advisor with plans for cardioversion as an outpatient in the near future. Jeff Silva MD [facility] Subjective Date/time seen: Date of service: 03/29/24 08:44 Interval history: Follow-up visit in this 83-year-old lady with atrial fibrillation admitted here for RVR. Her cardiovascular care is elsewhere as I dictated in my consult note. This morning she feels somewhat better with improvement in her heart rate control. She still reports however the sense of dyspnea with modest activity such as ambulating in the room. Heart rate tends to be 100-110 at rest for the most part 03/29/2024: Patient is feeling well this morning shortness of breath is considerably improved. Heart rate is well controlled on regimen of metoprolol with low-dose diltiazem. Exam Const: General: comfortable and no acute distress Other: Obese elderly lady no distress, supine in bed HENMT: Mouth: Yes moist mucous membranes Eyes: Sclera: sclerae normal Neck: Neck: supple and no JVD Resp: Effort & Inspection: normal respiratory effort Auscultation: clear to auscultation bilaterally Cardio: Rate: regular rate and tachycardic Rhythm: abnormal rhythm irregularly irregular Other: No audible murmur or gallop GI: Auscultation: normal bowel sounds Skin: General skin exam: normal color Neuro: Other: Alert and oriented x3 Extrem: Other: Normal perfusion Objective Data Vital Signs Vital Signs: Vital Signs - 24 hr 03/28/24 10:00 03/28/24 11:51 03/28/24 12:00 Temperature 36.7 C Pulse Rate 108 H 103 H Respiratory Rate 16 Blood Pressure 106/60 Pulse Oximetry 96 Oxygen Delivery Room Air 03/28/24 12:00 03/28/24 14:00 03/28/24 16:00 Temperature 36.8 C Pulse Rate 103 H 92 87 Respiratory Rate 24 H Blood Pressure 98/65 L Pulse Oximetry 94 Oxygen Delivery 03/28/24 16:00 03/28/24 16:00 03/28/24 18:00 Temperature Pulse Rate 101 H 83 Respiratory Rate Blood Pressure Pulse Oximetry Oxygen Delivery Room Air 03/28/24 19:52 03/28/24 20:00 03/28/24 20:00 Temperature 37.1 C Pulse Rate 82 93 93 Respiratory Rate 20 20 Blood Pressure 107/60 Pulse Oximetry 98 98 Oxygen Delivery Room Air 03/28/24 23:43 03/28/24 22:00 03/29/24 00:00 Temperature 36.8 C Pulse Rate 92 79 92 Respiratory Rate 20 20 Blood Pressure 105/59 L Pulse Oximetry 98 98 Oxygen Delivery Room Air 03/29/24 00:00 03/29/24 02:11 03/29/24 04:00 Temperature 36.4 C L Pulse Rate 74 70 88 Respiratory Rate 20 Blood Pressure 99/53 L Pulse Oximetry 97 Oxygen Delivery 03/29/24 04:00 03/29/24 04:00 03/29/24 06:00 Temperature Pulse Rate 88 70 87 Respiratory Rate 20 Blood Pressure Pulse Oximetry 97 Oxygen Delivery Room Air 03/29/24 08:00 03/29/24 08:11 03/29/24 08:19 Temperature 36.6 C Pulse Rate 95 84 89 Respiratory Rate 16 Blood Pressure 103/52 L Pulse Oximetry 98 Oxygen Delivery Intake/Output Intake/Output: Intake & Output 03/26/24 03/27/24 03/28/24 03/29/24 23:59 23:59 23:59 23:59 Intake Total 1159.5 1122.7 1495 775 Output Total 109 060 0595 Balance 559.5 672.7 495 775 Meds/Results Medications: Active Medications Generic Name Dose Route Start Last Admin Trade Name Freq PRN Reason Stop Dose Admin Albuterol 1 puff 03/25/24 21:31 Albuterol Sulfate (*Sp) Aerosol 1 Puff INHALATION
[2024-03-29] MEDS: IRON SUCROSE COMPLEX 100 MG in SODIUM CHLORIDE 0.9% IV 50 ML 220 MG IVPB (10:17)
[2024-03-29 11:36] LABS: Glucose Point of Care 104 mg/dl (65-105)
--- NOTE | 2024-03-29 11:55 | PM.DS ---
DS: Admitting Diagnosis Discharge Date 03/29/24 Admitting Diagnosis Rapid heart rate DS: Discharge Diagnosis Discharge Diagnosis (1) Atrial fibrillation with RVR: Code(s): I48.91 - Unspecified atrial fibrillation Status: Acute (2) Portal vein injury: Qualifiers: Encounter type: initial encounter Qualified Code(s): S35.319A - Unspecified injury of portal vein, initial encounter Code(s): S35.319A - Unspecified injury of portal vein, initial encounter Status: Acute (3) Type 2 diabetes mellitus: Qualifiers: Diabetes mellitus prison insulin use: without prison use Diabetes mellitus complication status: without complication Qualified Code(s): E11.9 - Type 2 diabetes mellitus without complications Code(s): E11.9 - Type 2 diabetes mellitus without complications Status: Acute (4) Hypertension: Qualifiers: Hypertension type: primary hypertension Qualified Code(s): I10 - Essential (primary) hypertension Code(s): I10 - Essential (primary) hypertension Status: Acute (5) Obstructive sleep apnea on CPAP: Code(s): G47.33 - Obstructive sleep apnea (adult) (pediatric) Status: Acute DS: Summary Hospital Course Reason for hospitalization: 83yo female with AFib, HTN and RAVINDRA here for rapid heart rate. Please see H&P for details. Hospital Course: Patient presents with tachycardia and known AFib. She was on Eliquis and Toprol XL 25mg daily at home. She follows with [facility] with plans for cardioversion next week. EKG showing tachycardia, atrial fibrillation, non-specific ST changes, normal QT and NL axis. Echo here showing normal LV size with mild concentric LVH and preserved systolic fxn with EF 50-55%, severe biatrial enlargement L>R and moderate TR with moderate pHTN. CXR showing no acute cardiopulmonary disease. She is on Sildenafil for pulmonary HTN. TSH normal. DDimer positive. CTA negative for PE and diffusely ectatic thoracic aorta. LE venous doppler negative for DVT. [id number]: 5 (age, sex, htn, dm). Given metoprolol IV with some response in heart rate but HR remained greater than 100. Transitioned to IV diltiazem. Oral metoprolol added and advanced. HR became better controlled and able to stop diltiazem. Cardiology consulted and appreciate their input. She feels edematous possibly related to uncontrolled HR and being off lasix. She did have oral Diltiazem added as well. We continued Eliquis. CTA chest showing portal venous gas. No gas noted within the GB or CBD. Differential listed include ischemia, PUD, IBD, infection, malignancy or bowel obstruction. CT Abd/pelvis showing resolution of portal gas. CRP negative but ESR 32. WBC normal/low. GI was consulted but no further evaluation recommended. A1C 6.1% on 02/04/2024. The patient's blood glucose was monitored with AccuCheks covering with sliding scale. Hypoglycemia protocol was available as needed. Patient's blood pressure was soft at times. Lasix and lisinopril stopped due to soft BP. Patient with chronic constipation. GI advanced her linzess. We continue her home miralax prn. Patient also with chronic anemia. Hgb chronically low mostly 8-9 range. B12/Folate normal. Iron studies consistent with iron deficiency. Started IV iron. Plans for her to see Heme/Onc that was arranged by her primary care provider. Heart rate became better controlled. She overall did well and was able to be discharged home on 03/29/24. Status at Discharge Cognitive/behavioral status at discharge: stable Time Spent with Patient Time attestation: Total time spent providing and/or coordinating discharge services: 35 minutes Time spent: Greater than 30 minutes Exam Narrative: AF 97.7 107/70 82 16 99% ra Gen - NARD Chest - CTA bilaterally, nml RR CV - Irregular. Tele showing AFib with controlled rate Abd - Soft, ND/NT, +BS Ext - scant pedal edema Psych - Nml mood and affect
== END 2024-03-29 13:06 | disposition home or self-care (01) | DRG 309 ==
LOC: ANHED 17:26 → ANHIMU 17:43
PROVIDERS: Internal Medicine; Student in an Organized Health Care Education/Training Program; Admitting Provider Internal Medicine; Emergency Provider Emergency Medicine; PCP Nurse Practitioner; Visit Provider Internal Medicine
DX: I48.19 Other persistent atrial fibrillation (principal); D61.818 Other pancytopenia; G47.33 Obstructive sleep apnea (adult) (pediatric); E11.9 Type 2 diabetes mellitus without complications; E03.9 Hypothyroidism, unspecified; I10 Essential (primary) hypertension; M19.90 Unspecified osteoarthritis, unspecified site; I71.23 Aneurysm of the descending thoracic aorta, without rupture; R93.2 Abnormal findings on diagnostic imaging of liver and biliary tract; K21.9 Gastro-esophageal reflux disease without esophagitis; K59.09 Other constipation; D63.8 Anemia in other chronic diseases classified elsewhere; D50.9 Iron deficiency anemia, unspecified; R14.0 Abdominal distension (gaseous); K57.90 Diverticulosis of intestine, part unspecified, without perforation or abscess without bleeding; M81.0 Age-related osteoporosis without current pathological fracture; M41.9 Scoliosis, unspecified; K59.00 Constipation, unspecified; Z96.653 Presence of artificial knee joint, bilateral; Z98.1 Arthrodesis status; Z90.711 Acquired absence of uterus with remaining cervical stump
CPT/HCPCS: 36415; 71045; 71275; 74177; 80048; 80053; 82607; 82728; 82746; 82948; 83540; 83550; 83605; 83735; 84100; 84146; 84443; 85025; 85027; 85380; 85610; 85652; 85730; 86140; 93005; 93306; 93970; 96361; 96366; 96375; 96376; 99285; A9270; G0378; J1756; J2470; J3475; J7030; J7040; Q9967

== ENCOUNTER 2025-05-20 14:00 | Outpatient (RCR) | payer MEDICARE, SELFPAY ==
--- NOTE | 2025-04-06 12:39 | OPREHPOC ---
Outpatient Therapy Plan of Care This is a Multidisciplinary Plan of Care that may contain components documented by all disciplines (PT, OT, and ST.) PT Problem 1 PT Problem #1 Knowledge Deficit PT Goal 1 Goal / Goal Update Pt. will demo good understanding of diagnosis and prognosis, HEPs. Target Visit 10 PT Problem 2 PT Problem #2 Pain PT Goal 1 Goal / Goal Update Pt will report 1-2/10 pain at worst, during sitting and standing tasks. Target Visit 12 PT Problem 3 PT Problem #3 Impaired Range of Motion PT Goal 1 Goal / Goal Update Pt will demo increase in lumbar and BLE ROM to WNL in order to allow improved functional mobility and safety. Target Visit 16 PT Problem 4 PT Problem #4 Impaired Balance PT Goal 1 Goal / Goal Update 1. Pt will perform 5xSTS [id number] seconds or less with minimal use of BUEs indicating improved BLE strength and balance. 2. Pt will demo a Tinneti Assessment score of 23/ 28 or more in order to reduce risk for falls. Target Visit 12 PT Problem 5 PT Problem #5 Impaired Strength PT Goal 1 Goal / Goal Update 1. Pt will perform Supine Transversus Abdominis Bracing with alternating Leg Extension x 10 reps without back and leg pain/discomfort. 2. Pt will demo a score of 4/5 or more muscle strength test to BLEs. Target Visit 14
--- NOTE | 2025-04-06 12:39 | PTOPEVAL1 ---
Assessment and note entered by Celia Daigle, PT Evaluation Information Assessment Status Evaluation Diagnosis Spinal Fusion ICD-10 Condition Codes (PT) Radiculopathy, sacral and sacrococcygeal region M54.18,Pain in left hip M25.552,Pain in left knee M25.562,Difficulty Walking R26.2,Abnormalities of gait and mobility R26.9 Onset December 2024 Subjective Information Pt reports pain from L buttocks down to back of her thigh and knee, started last December of this year and persisted, more noticeable. Bothers her when sitting on hard surfaces for long periods of time. Difficulty standing and walking long distances due to the back pain; worse with stairs and prolonged sitting, uses Tylenol Arthritis for relief. Pt wants to be pain free and able to sit in any chair as long as she likes. Reported Pain Level Pain Score 6: Self Report Assessment PT Clinical Summary Pt presents to therapy with c/o pain to L buttocks radiating to L hamstrings and L knee impacting her activity tolerance valentin sitting for long periods of time. Demos abdominal weakness, paraspinal tightness and increased muscle guarding , L hamstrings and piriformis shortening, postural instability, balance deficits and gait impairments. She will benefit from skilled PT to reduce pain and discomfort, improve core and BLE strength, improve proper body mechanics and posture, improve balance and activity tolerance in order to perform functional mobility painfree and safely, reduce risk for falls. Plan of Care Interventions Check Out for Orthotic/Prosthetic,Gait Training, Hot Pack/Cold Pack,Manual Therapy,Neuro Re- education,Patient/Caregiver Education,Therapeutic Activities,Therapeutic Exercise,Ultrasound Other Interventions IASTM, Taping PT Services Indicated Yes Treatment Frequency and 2x/week x 12 visits Duration These treatments will address the objective and functional deficits as defined above. The patient will be advanced safely and appropriately in order for the patient to progress towards his/her prior level of function. Additional exercises will be introduced and as well as a comprehensive home exercise program upon discharge, if needed, ?to ensure carryover of functional gains achieved in the clinic. This treatment plan has been reviewed and agreement upon by the patient.
--- NOTE | 2025-05-20 16:17 | PTOPDC ---
Assessment and note entered by Celia Daigle, PT Discharge Information Assessment Status Discharge Diagnosis Spinal Fusion ICD-10 Condition Codes (PT) Radiculopathy, sacral and sacrococcygeal region M54.18,Pain in left hip M25.552,Pain in left knee M25.562,Difficulty Walking R26.2,Abnormalities of gait and mobility R26.9 Onset December 2024 Subjective Information Pt reports went up/down stairs with 1 HR today and it did not hurt. States felt so much better since she started therapy, she is now able to sit on a chair and play cards with her sister Reported Pain Level Pain Score 3: Self Report Assessment PT Clinical Summary Pt received a total of 12 treatment sessions and demos excellent progress with therapy. She demos significant reduction in pain and discomfort during standing and walking, improved ROM and strength, improved balance and gait. She is compliant with HEPs and agreeable to DC at this time. Skilled PT discontinued. Plan of Care PT Services Indicated No
== END 2025-05-20 16:59 | disposition home or self-care (01) ==
LOC: ANHPT 14:00
PROVIDERS: PCP Nurse Practitioner; Visit Provider Nurse Practitioner Adult Health
DX: Z47.89 Encounter for other orthopedic aftercare (principal); M54.18 Radiculopathy, sacral and sacrococcygeal region; M25.562 Pain in left knee; R26.2 Difficulty in walking, not elsewhere classified; R26.9 Unspecified abnormalities of gait and mobility; Z98.1 Arthrodesis status
CPT/HCPCS: 97110; 97140; 97161; 97530; 97750